=== PATIENT | female | born 1970 | race Caucasian/White ===

== ENCOUNTER 2017-04-28 13:54 | Observation (INO) | payer SELFPAY ==
[~2017-04-28] VITALS: Ht 165.1 cm; Wt 84.4 kg
[2017-04-28 14:21] LABS: BASOPHILS % (AUTO) 0 % (0-10); EOSINOPHILS # (AUTO) 0.1 10^3/uL (0.0-0.3); EOSINOPHILS % (AUTO) 1 % (0-10); HEMATOCRIT 42 % (35-52); HEMOGLOBIN 14.3 G/DL (11.5-16.0); LYMPHOCYTES # (AUTO) 1.2 X 10^3 (1.0-4.0); LYMPHOCYTES % (AUTO) 11 % (12-44); MEAN CORPUSCULAR HEMOGLOBIN 31 PG (25-34); MEAN CORPUSCULAR HGB CONC 34 G/DL (32-36); MEAN CORPUSCULAR VOLUME 90 FL (80-99); MEAN PLATELET VOLUME 9.4 FL (7.4-10.4); MONOCYTES % (AUTO) 9 % (0-12); NEUTROPHILS # (AUTO) 8.5 X 10^3 (1.8-7.8); NEUTROPHILS % (AUTO) 79 % (42-75); PLATELET COUNT 299 10^3/uL (130-400); RED BLOOD COUNT 4.66 10^6/uL (4.35-5.85); RED CELL DISTRIBUTION WIDTH 14.1 % (10.0-14.5); WHITE BLOOD COUNT 10.8 10^3/uL (4.3-11.0)
[2017-04-28 14:38] LABS: PROTHROMBIN TIME PATIENT 13.1 SEC (12.2-14.7)
--- NOTE | 2017-04-28 14:41 | Diagnostic Imaging Report ---
Indication: Dizziness and diaphoresis Comparison: None Findings: Single frontal view of the chest is obtained. Heart size is normal. The pulmonary vessels appear unremarkable. There is no pneumothorax, mediastinal widening or pleural fluid. Lungs are clear. Impression: Negative chest. Dictated by: Dictated on workstation # [id number]
[2017-04-28 14:43] LABS: ALANINE AMINOTRANSFERASE 46 U/L (0-55); ALKALINE PHOSPHATASE 72 U/L (40-136); BILIRUBIN,TOTAL 0.4 MG/DL (0.1-1.0); BUN/CREATININE RATIO 16; CALCIUM 8.8 MG/DL (8.5-10.1); CARBON DIOXIDE 21 MMOL/L (21-32); CHLORIDE 108 MMOL/L (98-107); CREATINE KINASE 39 U/L (29-168); GFR ESTIMATED > 60; GLUCOSE 101 MG/DL (70-105); POTASSIUM 3.5 MMOL/L (3.6-5.0); SODIUM 139 MMOL/L (135-145)
--- NOTE | 2017-04-28 14:55 | Diagnostic Imaging Report ---
EXAM: CT HEAD WO-R/O STROKE INDICATION: Syncope. Headache. Blurred vision. COMPARISON: None. FINDINGS: No intracranial hemorrhage, mass effect, hydrocephalus or extra-axial fluid collections. No CT evidence of acute infarction. Osseous structures are intact. There are air-fluid levels in the partially visualized right maxillary and ethmoid sinuses. Small left mastoid effusion. IMPRESSION: 1. No acute intracranial CT findings. 2. Air-fluid levels in the ethmoid and partially visualized right maxillary sinus. 3. Small left mastoid effusion is nonspecific. Findings discussed with Dr. Elizabeth Dooley at 2:52 PM on 04/28/2017. Dictated by: Dictated on workstation # [id number]
[2017-04-28 15:05] LABS: BILIRUBIN,URINE NEGATIVE (NEGATIVE); CLARITY,URINE CLEAR; COLOR,URINE YELLOW; GLUCOSE, URINE (UA) NEGATIVE (NEGATIVE); KETONES,URINE NEGATIVE (NEGATIVE); LEUKOCYTE ESTERASE ,URINE NEGATIVE (NEGATIVE); NITRITE,URINE NEGATIVE (NEGATIVE); PH,URINE 6.5 (5-9); PROTEIN,URINE NEGATIVE (NEGATIVE); UROBILINOGEN,URINE NORMAL (NORMAL)
[2017-04-28 15:22] LABS: CREATINE KINASE MB 0.5 NG/ML (<6.6); TSH (THYROID ANALYZER) 0.65 UIU/ML (0.35-4.94)
[2017-04-28] MEDS ORDERED: NS 100 ML (IVPB) BAG IV ONE (15:30)
[2017-04-28] MEDS ORDERED: IOHEXOL 350 MG/ML 150 ML (OMNIPAQUE 350) VIAL IV ONE (15:30)
[2017-04-28 15:33] LABS: BACTERIA,URINE FEW /HPF; SQUAMOUS EPITHELIAL CELL,UR 0-5 /HPF; WBC,URINE 0-2 /HPF
[2017-04-28] MEDS ORDERED: cefTRIAXone INJECTION 1,000 MG in NS (IVPB) 100 ML IV ONE (15:45)
--- NOTE | 2017-04-28 15:56 | Diagnostic Imaging Report ---
PROCEDURE: CT angiography of the chest with contrast. TECHNIQUE: Multiple contiguous axial images were obtained through the chest after uneventful bolus administration of intravenous contrast. Reconstructed CTA MIP acquisitions were also performed. INDICATION: Chest pain. Left arm pain. COMPARISON: Chest radiograph also performed today. FINDINGS: No pulmonary artery filling defects. No thoracic aortic aneurysm or dissection. Normal heart size. No pericardial effusion. Calcified mediastinal lymph nodes. Minimal linear atelectasis or scarring in the right lung base. The lungs are otherwise clear. No pleural effusion or pneumothorax. No endobronchial lesions. Hypoenhancing nodule in the left adrenal gland measures 1.3 x 2.5 cm. The visualized upper abdominal contents are otherwise negative. IMPRESSION: 1. No pulmonary emboli. No thoracic aortic aneurysm or dissection. 2. No acute CT findings in the chest. There are 3. Nonspecific well-circumscribed hypoenhancing mass in the left adrenal gland measuring up to 2.5 cm. Although this may represent a benign adenoma, is indeterminate on this exam. Comparison with prior outside examinations or a dedicated multiphase CT examination would be helpful for further characterization. Dictated by: Dictated on workstation # [id number]
--- NOTE | 2017-04-28 16:40 | ED General ---
General Chief Complaint: Dizziness/Syncope Stated Complaint: SYNCOPAL EPISODES,CHEST PAIN,SOB,SINUSITIS Nursing Triage Note: COUGH/FEVER/FLU LIKE S/S X 1 WEEK. PT WAS SEEN AT [facility] YESTERDAY FOR FLU LIKE S/ S BUT WAS NEGATIVE FOR FLU TEST. PT REPROTS SHE FELT DIAPHORETIC AND DIZZY WITH CP AND BACK PAIN WHILE IN THE BATHROOM AND FELT LIKE SHE WAS GOING TO PASS OUT. WHEN HER GOT TO HER HE SAID SHE WAS UNRESPONSIVE AND HER HANDS WERE CONTRACTED. PT REPORTS SHE DID NOT FALL. HER LOWERED HER TO THE GROUND AND SHE WAS ALERT UPON EMS ARRIVAL. Nursing Sepsis Screen: Possible Sepsis Risk Source of Information: Patient, EMS, Spouse History of Present Illness Date Seen by Provider: Apr 28, 2017 Time Seen by Provider: 14:02 Initial Comments PT ARRIVES VIA EMS FROM HOME PT STATES SHE SUDDENLY STARTED HAVING UPPER BACK AND CHEST PAIN AND WALKED TO THE BATHROOM AND PASSED OUT. OCCURRED JUST PRIOR TO ARRIVAL DOES NOT KNOW HOW LONG SHE WAS OUT, BUT THINKS WAS ONLY BRIEFLY NO INJURY PT STATES SHE HAS HAD NON-PRODUCTIVE COUGH AND FEVER THIS WEEK (DENIES COUGHING AT THE TIME OF THIS EPISODE) STATES SHE WAS SEEN AT [facility] YESTERDAY FOR THIS PROBLEM AND HER TEMP YESTERDAY WAS "104" --STATES FLU AND STREP SCREEN WERE NEGATIVE. NO RX GIVEN PT STATES SHE FELT REAL HOT AND DIZZY NO HISTORY OF SIMILAR SYMPTOMS Allergies and Home Medications Allergies Coded Allergies: Penicillins (Verified Allergy, Unknown, 04/28/17) Sulfa (Sulfonamide Antibiotics) (Verified Allergy, Unknown, 04/28/17) Home Medications No Active Prescriptions or Reported Meds Past Aerqqiz-Mxrbbq-Oaffal Hx Patient Social History Alcohol Use: Denies Use Recreational Drug Use: No Smoking Status: Never a Smoker Recent Foreign Travel: No Contact w/Someone Who Travel: No Recent Infectious Disease Expo: No Recent Hopitalizations: No Physical Abuse: No Sexual Abuse: No Mistreated: No Fear: No Seasonal Allergies Seasonal Allergies: No Surgeries History of Surgeries: Yes (R/L KNEE, L5-S1 FUSION, ) Surgeries: Hysterectomy Respiratory History of Respiratory Disorde: No Cardiovascular History of Cardiac Disorders: Yes Cardiac Disorders: Hypertension Neurological History of Neurological Disord: No Genitourinary History of Genitourinary Disor: No Gastrointestinal History of Gastrointestinal Di: No Musculoskeletal History of Musculoskeletal Dis: Yes Musculoskeletal Disorders: Degenerate Disk Disease, Chronic Back Pain Endocrine History of Endocrine Disorders: No HEENT History of HEENT Disorders: No Cancer History of Cancer: No Psychosocial History of Psychiatric Problem: No Suicide Risk Score: 0 Integumentary History of Skin or Integumenta: No Blood Transfusions History of Blood Disorders: No Physical Exam Vital Signs Vital Signs - First Documented 04/28/17 14:03 Temp 99.2 Pulse 79 Resp 24 B/P (MAP) 142/93 (109) Pulse Ox 96 Capillary Refill : Less Than 3 Seconds Focused Exam Evaluation Lactate Level Laboratory Tests 04/28/17 14:28: Lactic Acid Level 0.87 Lactic Acid Level Laboratory Tests Test 04/28/17 14:28 Lactic Acid Level 0.87 MMOL/L (0.50-2.00) Progress/Results/Core Measures Suspected Sepsis Recent Fever Within 48 Hours: Yes Infection Criteria Present: Suspected New Infection New/Unexplained Altered Menta: No Sepsis Screen: Possible Sepsis Risk Sepsis Diagnosis: SIRS Temperature:99.2 Pulse: 79 Respiratory Rate: 24 Laboratory Tests 04/28/17 13:57: White Blood Count 10.8 Blood Pressure 142 /93 Mean: 109 Laboratory Tests 04/28/17 14:28: Lactic Acid Level 0.87 Laboratory Tests 04/28/17 13:57: Creatinine 0.70, INR Comment 1.0, Platelet Count 299, Total Bilirubin 0.4 Results/Orders Lab Results Laboratory Tests Test 04/28/17 13:57 04/28/17 14:28 04/28/17 14:56 Range/Units White Blood Count 10.8 4.3-11.0 10^3/uL Red Blood Count 4.66 4.35-5.85 10^6/uL Hemoglobin 14.3 11.5-16.0 G/DL Hematocrit 42 35-52 % Mean Corpuscular Volume 90 80-99 FL Mean Corpuscular Hemoglobin 31 25-34 PG Mean Corpuscular Hemoglobin Concent 34 32-36 G/DL Red Cell Distribution Width 14.1 10.0-14.5 % Platelet Count 299 130-400 10^3/uL Mean Platelet Volume 9.4 7.4-10.4 FL Neutrophils (%) (Auto) 79 H 42-75 % Lymphocytes (%) (Auto) 11 L 12-44 % Monocytes (%) (Auto) 9 0-12 % Eosinophils (%) (Auto) 1 0-10 % Basophils (%) (Auto) 0 0-10 % Neutrophils # (Auto) 8.5 H 1.8-7.8 X 10^3 Lymphocytes # (Auto) 1.2 1.0-4.0 X 10^3 Monocytes # (Auto) 1.0 0.0-1.0 X 10^3 Eosinophils # (Auto) 0.1 0.0-0.3 10^3/uL Basophils # (Auto) 0.0 0.0-0.1 10^3/uL Prothrombin Time 13.1 12.2-14.7 SEC INR Comment 1.0 0.8-1.4 Activated Partial Thromboplast Time 20 L 24-35 SEC Sodium Level 139 135-145 MMOL/L Potassium Level 3.5 L 3.6-5.0 MMOL/L Chloride Level 108 H 98-107 MMOL/L Carbon Dioxide Level 21 21-32 MMOL/L Anion Gap 10 5-14 MMOL/L Blood Urea Nitrogen 11 7-18 MG/DL Creatinine 0.70 0.60-1.30 MG/DL Estimat Glomerular Filtration Rate > 60 BUN/Creatinine Ratio 16 Glucose Level 101 70-105 MG/DL Calcium Level 8.8 8.5-10.1 MG/DL Magnesium Level 2.0 1.8-2.4 MG/DL Total Bilirubin 0.4 0.1-1.0 MG/DL Aspartate Amino Transf (AST/SGOT) 33 5-34 U/L Alanine Aminotransferase (ALT/SGPT) 46 0-55 U/L Alkaline Phosphatase 72 40-136 U/L Total Creatine Kinase 39 29-168 U/L Creatine Kinase MB 0.5 <6.6 NG/ML Troponin I < 0.30 <0.30 NG/ML B-Type Natriuretic Peptide 11.9 <100.0 PG/ML Total Protein 7.0 6.4-8.2 GM/DL Albumin 4.0 3.2-4.5 GM/DL TSH Barber Testing 0.65 0.35-4.94 UIU/ML Lactic Acid Level 0.87 0.50-2.00 MMOL/L Urine Color YELLOW Urine Clarity CLEAR Urine pH 6.5 5-9 Urine Specific [place] 1.010 L 1.016-1.022 Urine Protein NEGATIVE NEGATIVE Urine Glucose (UA) NEGATIVE NEGATIVE Urine Ketones NEGATIVE NEGATIVE Urine Nitrite NEGATIVE NEGATIVE Urine Bilirubin NEGATIVE NEGATIVE Urine Urobilinogen NORMAL NORMAL MG/DL Urine Leukocyte Esterase NEGATIVE NEGATIVE Urine RBC (Auto) NEGATIVE NEGATIVE Urine RBC NONE /HPF Urine WBC 0-2 /HPF Urine Squamous Epithelial Cells 0-5 /HPF Urine Crystals NONE /LPF Urine Bacteria FEW H /HPF Urine Casts NONE /LPF Urine Mucus NEGATIVE /LPF Urine Culture Indicated YES Micro Results Microbiology 04/28/17 Influenza Types A,B Antigen (ROMI) - Final, Complete My Orders Orders - WANDY RAMÍREZ DO Saline Lock/Iv-Start (04/28/17 14:11) Ekg Tracing (04/28/17 14:11) O2 (04/28/17 14:11) Monitor-Rhythm Ecg Trace Only (04/28/17 14:11) Ct Head Wo-R/O Stroke (04/28/17 14:11) BNP (04/28/17 14:11) Cbc With Automated Diff (04/28/17 14:11) Comprehensive Metabolic Panel (04/28/17 14:11) Creatine Kinase (04/28/17 14:11) Creatine Kinase Mb (04/28/17 14:11) Lactic Acid Analyzer (04/28/17 14:11) Magnesium (04/28/17 14:11) Protime With Inr (04/28/17 14:11) Partial Thromboplastin Time (04/28/17 14:11) Thyroid Analyzer (04/28/17 14:11) Troponin I (04/28/17 14:11) Ua Culture If Indicated (04/28/17 14:11) Blood Culture (04/28/17 14:11) Influenza A And B Antigens (04/28/17 14:11) Chest 1 View, Ap/Pa Only (04/28/17 14:11) Ct Angio Chest W (04/28/17 15:16) Iohexol Injection (Omnipaque 350 Mg/Ml 1 (04/28/17 15:30) Ns (Ivpb) (Sodium Chloride 0.9% Ivpb Bag (04/28/17 15:30) Urine Culture (04/28/17 14:56) Ceftriaxone Injection (Rocephin Injectio (04/28/17 15:45) Medications Given in ED Current Medications Medications Dose Ordered Sig/Ericka Route Start Time Stop Time Status Last Admin Dose Admin Ceftriaxone Sodium 1000 mg/ Sodium Chloride 100 ml @ 200 mls/hr ONCE ONCE IV 04/28/17 15:45 04/28/17 16:14 DC 04/28/17 16:04 200 MLS/HR Iohexol 150 ml ONCE ONCE IV 04/28/17 15:30 04/28/17 15:31 DC 04/28/17 15:29 125 ML Sodium Chloride 100 ml ONCE ONCE IV 04/28/17 15:30 04/28/17 15:31 DC 04/28/17 15:29 100 ML Vital Signs/I&O Vital Sign - Last 12Hours 04/28/17 14:03 Temp 99.2 Pulse 79 Resp 24 B/P (MAP) 142/93 (109) Pulse Ox 96 Capillary Refill : Less Than 3 Seconds Blood Pressure Mean: 109 Departure Departure-Patient Inst. Referrals: [facility] (PCP/Family) Primary Care Physician Scripts No Active Prescriptions or Reported Meds WANDY RAMÍREZ DO Apr 28, 2017 16:40
[2017-04-28 17:30] VITALS: BP 130/86
[2017-04-28] MEDS ORDERED: 1/2 NS IV SOLUTION 1,000 ML IV ONE (17:39)
[2017-04-28 17:45] VITALS: BP 147/88
[2017-04-28] MEDS: 1/2 NS IV SOLUTION 1,000 ML IV SCH (17:45)
[2017-04-28] MEDS ORDERED: morphine INJ 4 MG/ML 1 ML (VIAL/SYRINGE) IV PRN (17:45)
[2017-04-28] MEDS ORDERED: NITROGLYCERIN 0.4 MG SL TABS BTL 25'S SL PRN (17:45)
[2017-04-28 18:00] VITALS: BP 143/88
[2017-04-28 18:15] VITALS: BP 139/84
[2017-04-28 18:30] VITALS: BP 127/82
[2017-04-28] MEDS: ACETAMINOPHEN 500 MG TAB (TYLENOL) PO PRN (18:37)
[2017-04-28 20:50] VITALS: BP 134/85
[2017-04-29] VITALS (8 sets, daily range): BP systolic 111–152; BP diastolic 65–93
[2017-04-29] MEDS: 1/2 NS IV SOLUTION 1,000 ML IV SCH ×3 (04:35→17:47)
[2017-04-29 05:58] LABS: BASOPHILS % (AUTO) 0 % (0-10); EOSINOPHILS # (AUTO) 0.2 10^3/uL (0.0-0.3); EOSINOPHILS % (AUTO) 3 % (0-10); HEMATOCRIT 42 % (35-52); HEMOGLOBIN 14.2 G/DL (11.5-16.0); LYMPHOCYTES # (AUTO) 1.5 X 10^3 (1.0-4.0); LYMPHOCYTES % (AUTO) 31 % (12-44); MEAN CORPUSCULAR HEMOGLOBIN 31 PG (25-34); MEAN CORPUSCULAR HGB CONC 34 G/DL (32-36); MEAN CORPUSCULAR VOLUME 92 FL (80-99); MEAN PLATELET VOLUME 9.7 FL (7.4-10.4); MONOCYTES % (AUTO) 20 % (0-12); NEUTROPHILS # (AUTO) 2.3 X 10^3 (1.8-7.8); NEUTROPHILS % (AUTO) 46 % (42-75); PLATELET COUNT 284 10^3/uL (130-400); RED BLOOD COUNT 4.58 10^6/uL (4.35-5.85); RED CELL DISTRIBUTION WIDTH 14.4 % (10.0-14.5)
[2017-04-29 06:31] LABS: ALANINE AMINOTRANSFERASE 42 U/L (0-55); ALBUMIN 3.8 GM/DL (3.2-4.5); ALKALINE PHOSPHATASE 71 U/L (40-136); BILIRUBIN,TOTAL 0.3 MG/DL (0.1-1.0); BUN/CREATININE RATIO 21; CALCIUM 8.8 MG/DL (8.5-10.1); CARBON DIOXIDE 22 MMOL/L (21-32); CHLORIDE 112 MMOL/L (98-107); CHOLESTEROL 193 MG/DL (< 200); CREATININE SERUM 0.68 MG/DL (0.60-1.30); GFR ESTIMATED > 60; GLUCOSE 139 MG/DL (70-105); HDL CHOLESTEROL 45 MG/DL (40-60); MAGNESIUM 2.2 MG/DL (1.8-2.4); POTASSIUM 3.6 MMOL/L (3.6-5.0); SODIUM 142 MMOL/L (135-145); TOTAL PROTEIN 6.5 GM/DL (6.4-8.2); TRIGLYCERIDES 174 MG/DL (<150); VLDL CHOLESTEROL 35 MG/DL (5-40)
[2017-04-29 06:43] LABS: EOSINOPHILS % (MANUAL) 4 %; LYMPHOCYTES % (MANUAL) 35 %; MONOCYTES % (MANUAL) 11 %; NEUTROPHILS % (MANUAL) 50 %; RBC MORPH NORMAL
[2017-04-29] MEDS ORDERED: INFLUENZA TRIvalent 2017-2018 0.5 ML/45 MCG SYR IM ONE (07:45)
[2017-04-29] MEDS: ASPIRIN E.C. 325 MG (ECOTRIN) TABLET PO SCH (09:27)
--- NOTE | 2017-04-29 11:29 | Consultation-Cardiology ---
HPI-Cardiology Cardiology Consultation: Date of Consultation 04/29/17 Time Seen by Provider: 10:55 Date of Admission Attending Physician Marlene Torres DO Admitting Physician [facility] [facility] Consulting Physician SHARIF BEATTY MD, MA, FACP, FACC, FSCAI, CCDS HPI: Chief Complaint: CC: Syncope HPI: 47 yo who had abdominal discomfort and some nausea yesterday and the urge to defecate. Passed out multiple times on the toilet, episodes preceded by the feeling of being hot and with some sweating. Witnessed by her . All episodes less than a min. Brought to the hosp. Another episode in the hosp while trying to sit up in the bed. Lasted only a few seconds. Tele showed NSR with rate around 55 bpm. No recurrence since. Some of these episodes associated with dull, upper L parasternal cp. No radiation of discomfort, mild to mod, never experienced before. No exertional shortness of breath or chest discomfort or leg swelling or palp Review of Systems-Cardiology Review of Systems Constitutional: No malaise, No tiredness, No weight loss, No weight gain Eyes: No vision change Ears/Nose/Throat: No ear discharge, No nasal drainage Respiratory: As described under HPI Cardiovascular: As described under HPI Gastrointestinal: As described under HPI Genitourinary: No hematuria Musculoskeletal: No back pain, No joint pain Skin: No rash, No ulcerations Psychiatric/Neurological: No seizure, No focal weakness, No syncope Hematologic: No bleeding abnormalities ORW-Aypsrv-Voxygd Hx Patient Social History Alcohol Use: Denies Use Recreational Drug Use: No Smoking Status: Former Smoker Recent Foreign Travel: No Recent Infectious Disease Expo: No Physical Abuse Screen: No Sexual Abuse: No Past Medical History PMH As described under Assessment. Family Medical History Family Medical History: A son of congenital heart disease at age 12 Allergies and Home Medications Allergies Coded Allergies: Penicillins (Verified Allergy, Unknown, 04/28/17) Sulfa (Sulfonamide Antibiotics) (Verified Allergy, Unknown, 04/28/17) Home Medications No Active Prescriptions or Reported Meds Patient Home Medication List Home Medication List Reviewed: Yes Physical Exam-Cardiology Physical Exam Vital Signs/I&O Vital Sign - Last 12Hours 04/29/17 04/29/17 04/29/17 04/29/17 00:40 01:00 03:51 07:00 Temp 97.0 96.3 Pulse 69 66 68 73 Resp 20 20 B/P (MAP) 149/83 (105) 124/72 (89) Pulse Ox 94 96 O2 Delivery Room Air Room Air 04/29/17 08:00 Temp 97.2 Pulse 65 Resp 18 B/P (MAP) 136/83 (100) Pulse Ox 98 O2 Delivery Room Air Intake and Output 04/29/17 00:00 Intake Total 800 ml Output Total 350 ml Balance 450 ml Capillary Refill : Less Than 3 Seconds Constitutional: AAO x 3, well-developed, well-nourished HEENT: PERRL, EOMI, hearing is well preserved Neck: carotid bruit, carotid pulses are 2 + bilaterally, with good upstrokes Respiratory: No accessory muscle use, lungs clear to percussion, lungs clear to auscultation Cardiovascular: regular rate-rhythm, S1 and S2, systolic murmur (faint MEREDITH at card base) Gastrointestinal: No tender, soft, No guarding, No rebound, audible bowel sounds Extremities: No clubbing, No cyanosis, No significant edema Neurologic/Psychiatric: oriented x 3, grossly intact, power is 5/5 both on sides Skin: No rash on exposed areas, No ulcerations on exposed areas Data Review Labs Laboratory Tests 04/28/17 13:57: White Blood Count 10.8, Red Blood Count 4.66, Hemoglobin 14.3, Hematocrit 42, Mean Corpuscular Volume 90, Mean Corpuscular Hemoglobin 31, Mean Corpuscular Hemoglobin Concent 34, Red Cell Distribution Width 14.1, Platelet Count 299, Mean Platelet Volume 9.4, Neutrophils (%) (Auto) 79H, Lymphocytes (%) (Auto) 11L , Monocytes (%) (Auto) 9, Eosinophils (%) (Auto) 1, Basophils (%) (Auto) 0, Neutrophils # (Auto) 8.5H, Lymphocytes # (Auto) 1.2, Monocytes # (Auto) 1.0, Eosinophils # (Auto) 0.1, Basophils # (Auto) 0.0, Prothrombin Time 13.1, INR Comment 1.0, Activated Partial Thromboplast Time 20L, Sodium Level 139, Potassium Level 3.5L, Chloride Level 108H, Carbon Dioxide Level 21, Anion Gap 10 , Blood Urea Nitrogen 11, Creatinine 0.70, Estimat Glomerular Filtration Rate > 60, BUN/Creatinine Ratio 16, Glucose Level 101, Calcium Level 8.8, Magnesium Level 2.0, Total Bilirubin 0.4, Aspartate Amino Transf (AST/SGOT) 33, Alanine Aminotransferase (ALT/SGPT) 46, Alkaline Phosphatase 72, Total Creatine Kinase 39, Creatine Kinase MB 0.5, Myoglobin 20.6, Troponin I < 0.30, B-Type Natriuretic Peptide 11.9, Total Protein 7.0, Albumin 4.0, TSH [place] Testing 0.65 04/28/17 14:28: Lactic Acid Level 0.87 04/28/17 14:56: Urine Color YELLOW, Urine Clarity CLEAR, Urine pH 6.5, Urine Specific [place] 1.010L, Urine Protein NEGATIVE, Urine Glucose (UA) NEGATIVE, Urine Ketones NEGATIVE, Urine Nitrite NEGATIVE, Urine Bilirubin NEGATIVE, Urine Urobilinogen NORMAL, Urine Leukocyte Esterase NEGATIVE, Urine RBC (Auto) NEGATIVE, Urine RBC NONE, Urine WBC 0-2, Urine Squamous Epithelial Cells 0-5, Urine Crystals NONE, Urine Bacteria FEWH, Urine Casts NONE, Urine Mucus NEGATIVE, Urine Culture Indicated YES 04/29/17 05:20: White Blood Count 5.0, Red Blood Count 4.58, Hemoglobin 14.2, Hematocrit 42, Mean Corpuscular Volume 92, Mean Corpuscular Hemoglobin 31, Mean Corpuscular Hemoglobin Concent 34, Red Cell Distribution Width 14.4, Platelet Count 284, Mean Platelet Volume 9.7, Neutrophils (%) (Auto) 46, Lymphocytes (%) (Auto) 31, Monocytes (%) (Auto) 20H, Eosinophils (%) (Auto) 3, Basophils (%) (Auto) 0, Neutrophils # (Auto) 2.3, Lymphocytes # (Auto) 1.5, Monocytes # (Auto) 1.0, Eosinophils # (Auto) 0.2, Basophils # (Auto) 0.0, Sodium Level 142, Potassium Level 3.6, Chloride Level 112H, Carbon Dioxide Level 22, Anion Gap 8, Blood Urea Nitrogen 14, Creatinine 0.68, Estimat Glomerular Filtration Rate > 60, BUN/ Creatinine Ratio 21, Glucose Level 139H, Calcium Level 8.8, Magnesium Level 2.2 , Total Bilirubin 0.3, Aspartate Amino Transf (AST/SGOT) 27, Alanine Aminotransferase (ALT/SGPT) 42, Alkaline Phosphatase 71, Total Protein 6.5, Albumin 3.8, Neutrophils % (Manual) 50, Lymphocytes % (Manual) 35, Monocytes % ( Manual) 11, Eosinophils % (Manual) 4, Band Neutrophils , Blood Morphology Comment NORMAL, Triglycerides Level 174H, Cholesterol Level 193, LDL Cholesterol Direct 131H, VLDL Cholesterol 35, HDL Cholesterol 45 Microbiology 04/28/17 Influenza Types A,B Antigen (ROMI) - Final, Complete Laboratory Tests 04/28/17 13:57 04/29/17 05:20 A/P-Cardiology Assessment/Admission Diagnosis Syncope of unknown etiology: vasovagal syncope is suspected but other etiologies need considered Probable ac gastroenteritis Nonspecific chest discomfort Discussion and Recomendations * Keep in hosp * Continue iv fluids * Record orthostatic bp * Echo to eval for structural heart disease * MPI to eval for cor ischemia * Monitor labs * I discussed her case with Dr Saleh * I discussed her case with her and her Clinical Quality Measures DVT/VTE Risk/Contraindication: Risk Factor Score Per Nursin RFS Level Per Nursing on Admit: 2=Moderate SHARIF BEATTY MD FACP FAC CCDS Apr 29, 2017 11:29
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
[2017-04-29] MEDS ORDERED: ONDANSETRON 4 MG/2 ML (SDV) Z0FRAN IVP PRN (11:45)
[2017-04-29] MEDS ORDERED: CALCIUM CARBONATE 500 MG (TUMS) TAB.CHEW PO PRN (11:45)
[2017-04-29] MEDS: IBUPROFEN 600 MG (MOTRIN) TAB PO PRN (12:36)
[2017-04-29] MEDS: ENOXAPARIN 40 MG/0.4 ML (LOVENOX) SYR SC SCH (12:36)
[2017-04-29] MEDS ORDERED: cefTRIAXone 1 GM/NS 100 ML IVPB IV SCH ×2 (16:00)
[2017-04-29] MEDS: ACETAMINOPHEN 500 MG TAB (TYLENOL) PO PRN (17:47)
[2017-04-30] VITALS (8 sets, daily range): BP systolic 118–165; BP diastolic 62–94
[2017-04-30] MEDS: 1/2 NS IV SOLUTION 1,000 ML IV SCH ×2 (01:42→11:22)
[2017-04-30 06:04] LABS: BASOPHILS % (AUTO) 0 % (0-10); EOSINOPHILS # (AUTO) 0.2 10^3/uL (0.0-0.3); EOSINOPHILS % (AUTO) 4 % (0-10); HEMATOCRIT 42 % (35-52); HEMOGLOBIN 13.9 G/DL (11.5-16.0); LYMPHOCYTES # (AUTO) 1.8 X 10^3 (1.0-4.0); LYMPHOCYTES % (AUTO) 32 % (12-44); MEAN CORPUSCULAR HEMOGLOBIN 31 PG (25-34); MEAN CORPUSCULAR HGB CONC 34 G/DL (32-36); MEAN CORPUSCULAR VOLUME 92 FL (80-99); MEAN PLATELET VOLUME 9.3 FL (7.4-10.4); MONOCYTES # (AUTO) 0.6 X 10^3 (0.0-1.0); MONOCYTES % (AUTO) 11 % (0-12); NEUTROPHILS % (AUTO) 53 % (42-75); PLATELET COUNT 289 10^3/uL (130-400); RED CELL DISTRIBUTION WIDTH 14.1 % (10.0-14.5); WHITE BLOOD COUNT 5.6 10^3/uL (4.3-11.0)
[2017-04-30 06:18] LABS: BUN/CREATININE RATIO 20; CALCIUM 8.4 MG/DL (8.5-10.1); CARBON DIOXIDE 21 MMOL/L (21-32); CHLORIDE 112 MMOL/L (98-107); CREATININE SERUM 0.61 MG/DL (0.60-1.30); GFR ESTIMATED > 60; GLUCOSE 102 MG/DL (70-105); MAGNESIUM 2.1 MG/DL (1.8-2.4); POTASSIUM 3.8 MMOL/L (3.6-5.0); SODIUM 141 MMOL/L (135-145)
[2017-04-30] MEDS ORDERED: REGADENOSON 0.4 MG/5 ML SYR (LEXISCAN) IV ONE ×2 (08:34→09:15)
--- NOTE | 2017-04-30 09:53 | Progress Note-Cardiology ---
Cardiology SOAP Progress Note Subjective: No further syncope or near-syncopal episodes. No c/o CP, dyspnea, palpitations. No c/o LE edema. Objective: I&O/Vital Signs Vital Sign - Last 12Hours 04/30/17 04/30/17 04/30/17 04/30/17 04:43 04:44 07:00 08:53 Temp 97.7 Pulse 67 72 55 62 65 67 Resp 18 B/P (MAP) 118/65 (82) 141/75 (97) 156/83 (107) 118/65 (82) Pulse Ox 97 98 O2 Delivery Room Air 04/30/17 04/30/17 04/30/17 04/30/17 09:00 09:08 09:09 10:15 Pulse 116 94 B/P (MAP) 127/94 (105) 157/73 (101) 165/81 (109) Pulse Ox 99 99 O2 Delivery Room Air 04/30/17 04/30/17 04/30/17 10:34 12:00 13:00 Temp 97.9 97.7 Pulse 54 56 74 B/P (MAP) 153/74 (100) 145/62 (89) Pulse Ox 96 98 Intake and Output 04/30/17 00:00 Intake Total 2940 ml Output Total 2025 ml Balance 915 ml Weight (Pounds): 186 Weight (Ounces): 0.0 Weight (Calculated Kilograms): [id number] Constitutional: AAO x 3, well-developed, well-nourished Respiratory: No accessory muscle use, lungs clear to percussion, lungs clear to auscultation Cardiovascular: regular rate-rhythm, S1 and S2, systolic murmur (faint MEREDITH at card base) Gastrointestional: No tender, soft, No guarding, No rebound, audible bowel sounds Extremities: No clubbing, No cyanosis, No significant edema Neurologic/Psychiatric: oriented x 3, grossly intact, power is 5/5 both on sides Skin: No rash on exposed areas, No ulcerations on exposed areas Results/Procedures: Labs Laboratory Tests 04/30/17 05:55: White Blood Count 5.6, Red Blood Count 4.50, Hemoglobin 13.9, Hematocrit 42, Mean Corpuscular Volume 92, Mean Corpuscular Hemoglobin 31, Mean Corpuscular Hemoglobin Concent 34, Red Cell Distribution Width 14.1, Platelet Count 289, Mean Platelet Volume 9.3, Neutrophils (%) (Auto) 53, Lymphocytes (%) (Auto) 32, Monocytes (%) (Auto) 11, Eosinophils (%) (Auto) 4, Basophils (%) (Auto) 0, Neutrophils # (Auto) 3.0, Lymphocytes # (Auto) 1.8, Monocytes # (Auto) 0.6, Eosinophils # (Auto) 0.2, Basophils # (Auto) 0.0, Sodium Level 141, Potassium Level 3.8, Chloride Level 112H, Carbon Dioxide Level 21, Anion Gap 8, Blood Urea Nitrogen 12, Creatinine 0.61, Estimat Glomerular Filtration Rate > 60, BUN/ Creatinine Ratio 20, Glucose Level 102, Calcium Level 8.4L, Magnesium Level 2.1 Microbiology 04/28/17 Blood Culture - Preliminary, Resulted Staph, Coag Neg (FRONT LINE LEADER) See Comments 04/28/17 Influenza Types A,B Antigen (ROMI) - Final, Complete 04/28/17 Urine Culture - Final, Complete A/P: Assessment: Syncope of unknown etiology: vasovagal syncope is suspected but other etiologies need considered No further syncope since 04/29/11 Echo of 04/30/17: LVEF 60-65%, WNL MPI of 04/30/17: no ischemia or infarction Probable ac gastroenteritis Nonspecific chest discomfort. No evidence of ACS Plan: * Record orthostatic bp - reviewed, no evidence of orthostatic hypotension * Echo to eval for structural heart disease - pending * MPI to eval for cor ischemia - pending * Monitor labs * Dr. Samuel discussed her case with her and her Physician Assessment Physician Assessment Feels well and wishes to go home. No cp or shortness of breath or palp or syncope Lungs: clear Cor: reg Ext: no c/c/e A&R * As documented in our note above that I updated at the time of this writing and as documented below * We have advised against driving or operating machinery or indulging in any activity where passing out might cause injury to self or others * We have educated her in the treatment and prevention of vasovagal syncope * Close outpat f/u is advised for now * I answered her and her family's questions [facility] Apr 30, 2017 09:53 SHARIF SAMUEL MD [facility] Apr 30, 2017 15:31
[2017-04-30] MEDS: ASPIRIN E.C. 325 MG (ECOTRIN) TABLET PO SCH (11:21)
[2017-04-30] MEDS: ENOXAPARIN 40 MG/0.4 ML (LOVENOX) SYR SC SCH (11:21)
[2017-04-30] MEDS: IBUPROFEN 600 MG (MOTRIN) TAB PO PRN (11:24)
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
[2017-04-30] MEDS ORDERED: ASPI-586 PO (15:34)
--- NOTE | 2017-04-30 15:37 | Discharge Instructions ---
Discharge Inst-[facility] Discharge Medications New, Converted or Re-Newed RX: Other (OTC 81 mg Aspirin) New Medications: Aspirin (Aspir 81) 81 Mg Tablet. 81 MG PO DAILY, #30 TAB Patient Instructions Goal/Follow Up Appt: You have a followup appt on May 11 @ 2PM with Jose Angel You have a follow up with Cardiology Dr Samuel in 2 weeks Patient Instructions: - Notify doctor of any similar episodes that occur Return to The Hospital For: - Chest pain - Shortness of breath Activity & Diet Discharge Diet: Cardiac Diet Activity as Tolerated: Yes Copy Copies To 1: [facility] HOLLY R MD Apr 30, 2017 3:37 pm
--- NOTE | 2017-04-30 18:43 | STRESS TEST ---
DATE OF SERVICE: 04/30/2017 RESTING AND POST REGADENOSON TECHNETIUM-99M TETROFOSMIN SPECT CT IMAGING ORDERING PHYSICIAN: Dr. Samuel. PRIMARY CARE PHYSICIAN: Dr. Torres. OTHER PHYSICIAN: [facility]. CLINICAL DIAGNOSES: 1. Syncope. 2. Chest discomfort. Baseline images were carried out after injection of 9.87 mCi of pharmacy intake technician-99m Tetrofosmin. This was followed by 0.4 mg of regadenoson and 31.3 mCi of pharmacy intake technician-99m Tetrofosmin for stress imaging. The patient noted mild shortness of breath and a feeling of being hot following regadenoson infusion, which resolved in a few minutes. Overall, she tolerated the procedure well. Review of images at rest and following stress does not indicate any significant perfusion defects consistent with significant myocardial ischemia or infarction. Gated images show normal global left ventricular systolic function. Normal regional wall motion. Left ventricular ejection fraction is calculated to be 64%. Left ventricular end diastolic volume is 63 mL. TID is absent (1.04). CONCLUSIONS: 1. No evidence of significant myocardial ischemia or infarction on this study. 2. Normal regional wall motion. 3. Normal global left ventricular systolic function with a calculated ejection fraction of 64%. 4. Normal left ventricular cavity size. Job ID: [id number] DocumentID: [id number] Dictated Date: 04/30/2017 13:09:44 Deputy Director Of Nursing Date: 04/30/2017 18:42:37 Dictated By: SHARIF SAMUEL MD, MA, FACP, FACC,
== END 2017-04-30 15:34 | disposition home or self-care (01) ==
LOC: ER 13:55 → 4TH 16:00 → UNDOADMOB 16:00 → 4TH 17:25 → UNDODISOB 04-30 16:20
PROVIDERS: ADMIT Family Medicine; ATTEND Family Medicine
DX: R55 Syncope and collapse (principal); R07.89 Other chest pain; R19.7 Diarrhea, unspecified; E27.9 Disorder of adrenal gland, unspecified; M51.26 Other intervertebral disc displacement, lumbar region; Z87.891 Personal history of nicotine dependence
CPT/HCPCS: 36415; 70450; 71045; 71275; 78452; 80048; 80053; 80061; 81000; 82550; 82553; 83605; 83735; 83874; 83880; 84443; 84484; 85007; 85025; 85027; 85610; 85730; 87040; 87088; 87804; 93005; 93017; 93041; 93306; 96365

== ENCOUNTER → 2017-05-22 | Outpatient (CLI) | payer OTHER ==
[~2017-05-22] VITALS: Ht 165.1 cm; Wt 83.9 kg
[2017-05-22] VITALS (28 sets, daily range): BP systolic 116–134; BP diastolic 64–94
[~2017-05-22] MED LIST: ASPI-586 PO; ATROPINE INJECTION 1 MG/10 ML SYR (ABBOTT) ONE; NS IV 1000 ML 1,000 ML IV SCH; NS IV 1000 ML 1,000 ML ONE; RECEIVED CONTRAST (Hold Metformin) IV SCH
--- NOTE | 2017-05-23 00:35 | OPERATIVE REPORT ---
DATE OF SERVICE: 05/22/2017 TILT TABLE TEST CLINICAL DIAGNOSIS: Syncope. The patient was laid flat on the table. Blood pressure was obtained. She was hooked up to a quality assurance monitor final. The table was tilted to 70 degrees with the patient's head up. Blood pressure was taken every minute. Heart rhythm was monitored continuously. The position was maintained for 45 minutes. There was no significant change in blood pressure or heart rate. She did not experience symptoms. CONCLUSION: Tilt table study negative for neurocardiogenic syncope. Job ID: [id number] DocumentID: [id number] Dictated Date: 05/22/2017 17:38:44 Microcomputer Support Specialist Date: 05/23/2017 00:34:50 Dictated By: SHARIF BEATTY MD, MA, FACP, FACC,
== END ==
LOC: CARD 07:08
PROVIDERS: ATTEND Nurse Practitioner Family
DX: R53.1 Weakness (principal); R53.83 Other fatigue; R42 Dizziness and giddiness; R55 Syncope and collapse; Z88.0 Allergy status to penicillin; Z88.2 Allergy status to sulfonamides
CPT/HCPCS: 93660

== ENCOUNTER 2017-06-26 10:53 | Day surgery (SDC) | payer OTHER ==
[~2017-06-26] VITALS: Ht 165.1 cm; Wt 83.9 kg
[~2017-06-26 10:53] MED LIST changes: -ATROPINE INJECTION 1 MG/10 ML SYR (ABBOTT) ONE; -NS IV 1000 ML 1,000 ML IV SCH; -NS IV 1000 ML 1,000 ML ONE; -RECEIVED CONTRAST (Hold Metformin) IV SCH
[2017-06-26] MEDS ORDERED: LIDOCAINE 1% INJ 20 ML 20 ML VIAL ONE ×2 (10:59→11:52)
[2017-06-26 11:09] VITALS: BP 133/99
[2017-06-26 12:23] VITALS: BP 133/78
--- NOTE | 2017-06-26 12:27 | Cardiac Procedure Note-CS/ASA ---
Pre-Procedure Note Pre-Op Procedure Note H&P Reviewed The H&P was reviewed, patient examined and no changes noted. Date H&P Reviewed: June 26, 2017 Time H&P Reviewed: 12:00 Conscious Sedation Pre-Proced Time Reviewed: 12:00 ASA Class: 3 Airway Mallampati Classification: (grayling appropriate class) I. II. III, IV Lungs Heart ASA score ASA 1: a normal healthy patient ASA 2: a patient with a mild systemic disease (mid diabetes, controlled hypertension, obesity ASA 3: a patient with a severe systemic disease that limits activity (angina , COPD, prior Myocardial infarction) ASA 4: a patient with an incapacitating disease that is a constant threat to life (CHF, renal failure) ASA 5: a moribund patient not expected to survive 24 hrs. (ruptured aneurysm) ASA 6: a declared brain patient whose organs are being harvested. For emergent operations, add the letter E after the classification Grade 2 Sedation Plan: Analgesia, Amnesia, Plan communicated to team members, Discussed options with patient/fam, Discussed risks with patient/fam Note The patient is an appropriate candidate to undergo the planned procedure, sedation, and anesthesia. The patient immediately re-assessed prior to indication. SHARIF BEATTY MD FACP FAC CCDS June 26, 2017 12:27
--- NOTE | 2017-06-26 22:59 | OPERATIVE REPORT ---
DATE OF SERVICE: 06/26/2017 PREOPERATIVE DIAGNOSIS: Syncope. POSTOPERATIVE DIAGNOSIS: Syncope. PROCEDURE: Implantable loop recorder implantation. DESCRIPTION OF PROCEDURE: The patient is a 47-year-old lady, who suffers from episode of syncope and no specific cause has been identified on cardiac workup. Implantable loop recorder implantation was carried out today to evaluate for any arrhythmia as a cause of her syncope. Informed consent was obtained. [facility] The left prepectoral area was prepared and draped in the usual sterile fashion. Lidocaine 1% for local anesthesia. We used the tools provided with the [employer] Reveal LINQ device to make a small incision just to the left of the parasternal border in the fourth intercostal space and a subcutaneous pocket was made with the tools provided and the loop recorder was placed in the pocket and the pocket was closed with Dermabond. She tolerated the procedure well. The serial number of the device is [id number]. Job ID: [id number] DocumentID: [id number] Dictated Date: 06/26/2017 12:03:52 Sewer Date: 06/26/2017 22:58:52 Dictated By: SHARIF BEATTY MD, MA, FACP, FACC,
== END 2017-06-26 12:30 | disposition home or self-care (01) ==
LOC: CATH 10:53
PROVIDERS: ATTEND Internal Medicine Cardiovascular Disease
DX: R55 Syncope and collapse (principal)
CPT/HCPCS: 33282

== ENCOUNTER 2017-11-06 17:12 | Emergency (ER) | payer SELFPAY ==
[~2017-11-06] VITALS: Ht 165.1 cm; Wt 77.1 kg
[~2017-11-06 17:12] MED LIST changes: +FLEXARIL; +HYDR25CA PO; +HYDROCODONE; +TRAZDONE
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
--- OUTSIDE RECORDS SUMMARY | 2017-11-06 17:17 | XMS REPORT ---
Author Author AKILAH HERNANDEZ Organization [facility] Address [address] [place] [address] Care Team Providers Care Prize Jacker Name Role Phone DAVIDRADHAAKILAH Unavailable PROBLEMS Type Condition ICD9-CM Code XQL89-VI Code Onset Dates Condition Status SNOMED Code Problem Chronic pain due to trauma G89.21 Active 566928107 Problem Major depressive disorder, single episode, unspecified F32.9 Active 07937821 Problem Anxiety disorder, unspecified F41.9 Active 568694739 Problem Other chronic pain G89.29 Active 37139131 Problem Elevated lipids E78.5 Active 527773294 Problem RAQUEL (generalized anxiety disorder) F41.1 Active 17382501 Problem PTSD (post-traumatic stress disorder) F43.10 Active 38078973 Problem Severe episode of recurrent major depressive disorder, without 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 Active 33420600 Problem Mixed obsessional thoughts and acts F42.2 Active 56147199 ALLERGIES No Information ENCOUNTERS Encounter Location Date Diagnosis [facility] [id number] [place] [address] 21113- 1672 Oct, [facility] [id number] [place] [address] 87354- 6707 Sep, Chronic pain due to trauma G89.21 ; Other chronic pain G89.29 and Pain in left hand M79.642 [facility] [address] [place] [address] 86917 -2907 Sep, Shortness of breath R06.02 and Syncope, unspecified syncope type R55 [facility] [id number] [place] [address] 09883- 8623 Sep, PTSD (post-traumatic stress disorder) F43.10 ; Severe episode of recurrent major depressive disorder, without 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 ; Mixed obsessional thoughts and acts F42.2 and RAQUEL (generalized anxiety disorder) F41.1 [place] [address] [address] Aug, Chronic pain due to trauma G89.21 [place] [id number] [place] [address] 67340- 3346 Aug, PTSD (post-traumatic stress disorder) F43.10 ; Severe episode of recurrent major depressive disorder, without 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 ; Mixed obsessional thoughts and acts F42.2 and RAQUEL (generalized anxiety disorder) F41.1 [place] [address] [place] [address] 54683- 9276 Aug, PTSD (post-traumatic stress disorder) F43.10 and Major depressive disorder, single episode, unspecified F32.9 [place] [id number] [place] [address] 09006- 5755 Jul, PTSD (post-traumatic stress disorder) F43.10 and Major depressive disorder, single episode, unspecified F32.9 [place] [id number] [place] [address] 15028- 5994 Jul, Chronic pain due to trauma G89.21 [place] [id number] [place] [address] 66416- 0608 Jul, PTSD (post-traumatic stress disorder) F43.10 ; Severe episode of recurrent major depressive disorder, without 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 ; RAQUEL (generalized anxiety disorder) F41.1 and Mixed obsessional thoughts and acts F42.2 [place] [address] [place] [address] 24024- 6918 Jul, PTSD (post-traumatic stress disorder) F43.10 and Major depressive disorder, single episode, unspecified F32.9 [place] [id number] [place] [address] 91587- 0556 June, Chronic pain due to trauma G89.21 [place] [id number] [place] [address] 68613- 8881 June, PTSD (post-traumatic stress disorder) F43.10 ; Severe episode of recurrent major depressive disorder, without 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 ; Mixed obsessional thoughts and acts F42.2 and RAQUEL (generalized anxiety disorder) F41.1 [place] [address] [address] [address] 1432 May, Chronic pain due to trauma G89.21 [place] [id number] [place] [address] 157106- 4911 May, PTSD (post-traumatic stress disorder) F43.10 [place] [id number] [place] [address] 57357- 1805 May, Chronic pain due to trauma G89.21 [place] [id number] [place] [address] 45901- 1351 May, PTSD (post-traumatic stress disorder) F43.10 ; Severe episode of recurrent major depressive disorder, without 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 ; Mixed obsessional thoughts and acts F42.2 and RAQUEL (generalized anxiety disorder) F41.1 [place] [id number] [place] [address] 56180- 5039 Apr, Elevated lipids E78.5 [place] [id number] [place] [address] 71315- 4260 Apr, PTSD (post-traumatic stress disorder) F43.10 and Major depressive disorder, single episode, unspecified F32.9 [place] [id number] [place] [address] 93122- 4190 Apr, Encounter to establish care Z76.89 [place] [id number] [place] [address] 27013- 5522 Apr, Chronic pain due to trauma G89.21 [place] [id number] [place] [address] 19384- 6487 Apr, Encounter to establish care Z76.89 ; Chronic pain due to trauma G89.21 ; Major depressive disorder, single episode, unspecified F32.9 ; Anxiety disorder, unspecified F41.9 ; PTSD (post-traumatic stress disorder) F43.10 and Syncope, unspecified syncope type R55 [facility] [address] [facility] [id number] [place] [address] Apr, Fever, unspecified fever cause R50.9 and Viral upper respiratory tract infection J06.9 [facility] [address] [facility] [id number] [place] [address] June, IMMUNIZATIONS No Known Immunizations SOCIAL HISTORY Never Assessed REASON FOR VISIT Follow-up Anxiety/PTSD PLAN OF CARE Activity Details Follow Up 2 Weeks Reason: Follow-up VITAL SIGNS MEDICATIONS Unknown Medications RESULTS No Results PROCEDURES Procedure Date Ordered Result Body Site Psychotherapy, patient &/family, 45 minutes, established patient August 28, 2017 INSTRUCTIONS MEDICATIONS ADMINISTERED No Known Medications MEDICAL [...]
--- OUTSIDE RECORDS SUMMARY | 2017-11-06 17:17 | XMS REPORT ---
Author Author FRANCISCO J DUNLAP Organization [facility] Address [address] [place] [address] Care Team Providers Care New Media Strategist Name Role Phone YASMINEFRANCISCO J LAMBERT Unavailable PROBLEMS Type Condition ICD9-CM Code VCS16-LR Code Onset Dates Condition Status SNOMED Code Problem Chronic pain due to trauma G89.21 Active 915780370 Problem Major depressive disorder, single episode, unspecified F32.9 Active 75787109 Problem Anxiety disorder, unspecified F41.9 Active 813440886 Problem Other chronic pain G89.29 Active 88258911 Problem Elevated lipids E78.5 Active 778512283 Problem RAQUEL (generalized anxiety disorder) F41.1 Active 17130512 Problem PTSD (post-traumatic stress disorder) F43.10 Active 60765623 Problem Severe episode of recurrent major depressive disorder, without 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 Active 29973339 Problem Mixed obsessional thoughts and acts F42.2 Active 74734758 ALLERGIES No Information ENCOUNTERS Encounter Location Date Diagnosis [facility] [address] [place] [address] 22084- 6396 Oct, [facility] [id number] [place] [address] 15702- 4464 Sep, Chronic pain due to trauma G89.21 ; Other chronic pain G89.29 and Pain in left hand M79.642 [facility] [address] [place] [address] 71953 -0810 Sep, Shortness of breath R06.02 and Syncope, unspecified syncope type R55 [facility] [id number] [place] [address] 32885- 7735 Sep, PTSD (post-traumatic stress disorder) F43.10 ; Severe episode of recurrent major depressive disorder, without 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 ; Mixed obsessional thoughts and acts F42.2 and RAQUEL (generalized anxiety disorder) F41.1 [place], [place] [address] Aug, Chronic pain due to trauma G89.21 [place] [id number] [place] [address] 15198- 9899 Aug, PTSD (post-traumatic stress disorder) F43.10 ; Severe episode of recurrent major depressive disorder, without 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 ; Mixed obsessional thoughts and acts F42.2 and RAQUEL (generalized anxiety disorder) F41.1 [place] [id number] [place] [address] 01995- 0515 Aug, PTSD (post-traumatic stress disorder) F43.10 and Major depressive disorder, single episode, unspecified F32.9 [place] [id number] [place] [address] 46011- 9026 Jul, PTSD (post-traumatic stress disorder) F43.10 and Major depressive disorder, single episode, unspecified F32.9 [place] [id number] [place] [address] 27126- 5760 Jul, Chronic pain due to trauma G89.21 [place] [id number] [place] [address] 87908- 0951 Jul, PTSD (post-traumatic stress disorder) F43.10 ; Severe episode of recurrent major depressive disorder, without 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 ; RAQUEL (generalized anxiety disorder) F41.1 and Mixed obsessional thoughts and acts F42.2 [place] [address] [place] [address] 62249- 4315 Jul, PTSD (post-traumatic stress disorder) F43.10 and Major depressive disorder, single episode, unspecified F32.9 [place] [address] [place] [address] 80504- 0435 June, Chronic pain due to trauma G89.21 [place] [id number] [place] [address] 34521- 7105 June, PTSD (post-traumatic stress disorder) F43.10 ; Severe episode of recurrent major depressive disorder, without 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 ; Mixed obsessional thoughts and acts F42.2 and RAQUEL (generalized anxiety disorder) F41.1 [place] [address] [place] [address] 91824- 6113 May, Chronic pain due to trauma G89.21 [place] [id number] [place] [address] 836492- 4155 May, PTSD (post-traumatic stress disorder) F43.10 [place] [id number] [place] [address] 09059- 5340 May, Chronic pain due to trauma G89.21 [place] [id number] [place] [address] 51767- 4492 May, PTSD (post-traumatic stress disorder) F43.10 ; Severe episode of recurrent major depressive disorder, without 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 ; Mixed obsessional thoughts and acts F42.2 and RAQUEL (generalized anxiety disorder) F41.1 [place] [id number] [place] [address] 21525- 3889 Apr, Elevated lipids E78.5 [place] [id number] [place] [address] 01819- 9451 Apr, PTSD (post-traumatic stress disorder) F43.10 and Major depressive disorder, single episode, unspecified F32.9 [place] [address] [place] [address] 79962- 3228 Apr, Encounter to establish care Z76.89 [place] [id number] [place] [address] 53440- 6475 Apr, Chronic pain due to trauma G89.21 [place] [id number] [place] [address] 63114- 0148 Apr, Encounter to establish care Z76.89 ; Chronic pain due to trauma G89.21 ; Major depressive disorder, single episode, unspecified F32.9 ; Anxiety disorder, unspecified F41.9 ; PTSD (post-traumatic stress disorder) F43.10 and Syncope, unspecified syncope type R55 [facility] [address] [facility] [id number] [place] [address] Apr, Fever, unspecified fever cause R50.9 and Viral upper respiratory tract infection J06.9 [facility] [address] [facility] [id number] [address] June, IMMUNIZATIONS No Known Immunizations SOCIAL HISTORY Never Assessed REASON FOR VISIT f/richard Ewing RN PLAN OF CARE Activity Details Follow Up 6 Weeks, prn Reason: VITAL SIGNS Height 65 in 2017-08-28 Weight 178.2 lbs 2017-08-28 Heart Rate 72 bpm 2017-08-28 Respiratory Rate 20 2017-08-28 BMI 29.65 kg/m2 2017-08-28 Blood pressure systolic 122 mmHg 2017-08-28 Blood pressure diastolic 78 mmHg 2017-08-28 MEDICATIONS Medication Instructions Dosage Frequency Start Date End Date Duration Status Trazodone HCl 100 MG Orally Once a day 1-2 tab at night for sleep as needed 24h May, Active Zoloft 50 MG Orally Once a day 0.5 tablet nightly for 2 weeks then full tab nightly 24h Aug, 30 day(s) Active Zyrtec Allergy 10 MG Orally Once a day 1 tablet 24h Active Clonazepam 1 MG Orally Once a day as needed for anxiety 0.25-0.5 tabs Aug, 7 days Active Motrin IB 200 MG Orally Three times a day 1 tablet with food or milk as needed 8h Active Cyclobenzaprine HCl 10 mg Orally twice a day 1 tablet as needed 12h Apr 30 days Active Hydrocodone-Acetaminophen 5-325 MG Orally every 6 hours as needed for pain 1- 2 tablets as needed Jul, 28 days Active Tylenol 325 MG Orally every 4 hrs 1 tablet as needed 4h Not-Taking Aspirin 81 81 MG Orally Once a day 1 tablet 24h Active RESULTS No Results PROCEDURES No Known [...]
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
--- OUTSIDE RECORDS SUMMARY | 2017-11-06 17:17 | XMS REPORT ---
Author Author KANG WASHINGTON Organization [facility] Address [address] [place] [address] Care Team Providers Care International Affairs Vice President Name Role Phone WASHINGTONKANG Unavailable PROBLEMS Type Condition ICD9-CM Code [id number] Code Onset Dates Condition Status SNOMED Code Problem Chronic pain due to trauma G89.21 Active 272465710 Problem Major depressive disorder, single episode, unspecified F32.9 Active 32460607 Problem Anxiety disorder, unspecified F41.9 Active 667229564 Problem Other chronic pain G89.29 Active 36987999 Problem Elevated lipids E78.5 Active 174258428 Problem RAQUEL (generalized anxiety disorder) F41.1 Active 43514238 Problem PTSD (post-traumatic stress disorder) F43.10 Active 41727216 Problem Severe episode of recurrent major depressive disorder, without 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 Active 70586746 Problem Mixed obsessional thoughts and acts F42.2 Active 67799821 ALLERGIES No Information ENCOUNTERS Encounter Location Date Diagnosis [facility] [id number] [place] [address] 93598- 3714 Oct, [facility] [id number] [place] [address] 70162- 3582 Sep, Chronic pain due to trauma G89.21 ; Other chronic pain G89.29 and Pain in left hand M79.642 [facility] [address] [place] [address] 01981 -4203 Sep, Shortness of breath R06.02 and Syncope, unspecified syncope type R55 [facility] [id number] [place] [address] 77417- 9344 Sep, PTSD (post-traumatic stress disorder) F43.10 ; Severe episode of recurrent major depressive disorder, without 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 ; Mixed obsessional thoughts and acts F42.2 and RAQUEL (generalized anxiety disorder) F41.1 [place] [address], [place] [address] Aug, Chronic pain due to trauma G89.21 [place] [id number] [place] [address] 55150- 9068 Aug, PTSD (post-traumatic stress disorder) F43.10 ; Severe episode of recurrent major depressive disorder, without 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 ; Mixed obsessional thoughts and acts F42.2 and RAQUEL (generalized anxiety disorder) F41.1 [place] [id number] [place] [address] 79805- 4897 Aug, PTSD (post-traumatic stress disorder) F43.10 and Major depressive disorder, single episode, unspecified F32.9 [place] [id number] [place] [address] 41422- 2958 Jul, PTSD (post-traumatic stress disorder) F43.10 and Major depressive disorder, single episode, unspecified F32.9 [place] [id number] [place] [address] 66470- 8124 Jul, Chronic pain due to trauma G89.21 [place] [id number] [place] [address] 07642- 4291 Jul, PTSD (post-traumatic stress disorder) F43.10 ; Severe episode of recurrent major depressive disorder, without 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 ; RAQUEL (generalized anxiety disorder) F41.1 and Mixed obsessional thoughts and acts F42.2 [place] [address] [place] [address] 27863- 7097 Jul, PTSD (post-traumatic stress disorder) F43.10 and Major depressive disorder, single episode, unspecified F32.9 [place] [address] [place] [address] 50261- 4735 June, Chronic pain due to trauma G89.21 [place] [id number] [place] [address] 89474- 5063 June, PTSD (post-traumatic stress disorder) F43.10 ; Severe episode of recurrent major depressive disorder, without 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 ; Mixed obsessional thoughts and acts F42.2 and RAQUEL (generalized anxiety disorder) F41.1 [place] [address] [place] [address] 33755- 0991 May, Chronic pain due to trauma G89.21 [place] [address] [address] [id number] [place] [address] 444965- 8572 May, PTSD (post-traumatic stress disorder) F43.10 [place] [id number] [place] [address] 84704- 0112 May, Chronic pain due to trauma G89.21 [place] [id number] [place] [address] 58697- 3271 May, PTSD (post-traumatic stress disorder) F43.10 ; Severe episode of recurrent major depressive disorder, without 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 ; Mixed obsessional thoughts and acts F42.2 and RAQUEL (generalized anxiety disorder) F41.1 [place] [id number] [place] [address] 93457- 4122 Apr, Elevated lipids E78.5 [place] [id number] [place] [address] 90242- 9353 Apr, PTSD (post-traumatic stress disorder) F43.10 and Major depressive disorder, single episode, unspecified F32.9 [place] [address] [place] [address] 50785- 1352 Apr, Encounter to establish care Z76.89 [place] [id number] [place] [address] 04748- 8256 Apr, Chronic pain due to trauma G89.21 [place] [id number] [place] [address] 75959- 8278 Apr, Encounter to establish care Z76.89 ; Chronic pain due to trauma G89.21 ; Major depressive disorder, single episode, unspecified F32.9 ; Anxiety disorder, unspecified F41.9 ; PTSD (post-traumatic stress disorder) F43.10 and Syncope, unspecified syncope type R55 [facility] [address] [facility] [id number] [place] [address] Apr, Fever, unspecified fever cause R50.9 and Viral upper respiratory tract infection J06.9 [facility] [address] [facility] [id number] [place] [address] June, IMMUNIZATIONS No Known Immunizations SOCIAL HISTORY Never Assessed REASON FOR VISIT Controlled Med Refill PLAN OF CARE VITAL SIGNS MEDICATIONS Medication Instructions Dosage Frequency Start Date End Date Duration Status Hydrocodone-Acetaminophen 5-325 MG Orally every 6 hours as needed for pain 1- 2 tablets as needed Jul, 28 days Active Cyclobenzaprine HCl 10 mg Orally twice a day 1 tablet as needed 12h 23 Apr 30 days Active RESULTS No Results PROCEDURES No [...]
--- OUTSIDE RECORDS SUMMARY | 2017-11-06 17:17 | XMS REPORT ---
Author Author AKILAH HERNANDEZ Organization [facility] Address [address] [place] [address] Care Team Providers Care Straight Edger Name Role Phone DAVIDARDHAAKILAH Unavailable PROBLEMS Type Condition ICD9-CM Code DAD09-XO Code Onset Dates Condition Status SNOMED Code Problem Chronic pain due to trauma G89.21 Active 444612573 Problem Major depressive disorder, single episode, unspecified F32.9 Active 11219814 Problem Anxiety disorder, unspecified F41.9 Active 137752082 Problem Other chronic pain G89.29 Active 18197850 Problem Elevated lipids E78.5 Active 148155107 Problem RAQUEL (generalized anxiety disorder) F41.1 Active 91206695 Problem PTSD (post-traumatic stress disorder) F43.10 Active 63445595 Problem Severe episode of recurrent major depressive disorder, without 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 Active 59439809 Problem Mixed obsessional thoughts and acts F42.2 Active 75170062 ALLERGIES No Information ENCOUNTERS Encounter Location Date Diagnosis [facility] [id number] [place] [address] 95187- 5827 Oct, [facility] [id number] [place] [address] 70868- 3340 Sep, Chronic pain due to trauma G89.21 ; Other chronic pain G89.29 and Pain in left hand M79.642 [facility] [address] [place] [address] 65154 -9740 Sep, Shortness of breath R06.02 and Syncope, unspecified syncope type R55 [facility] [id number] [place] [address] 06770- 2600 Sep, PTSD (post-traumatic stress disorder) F43.10 ; Severe episode of recurrent major depressive disorder, without 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 ; Mixed obsessional thoughts and acts F42.2 and RAQUEL (generalized anxiety disorder) F41.1 [place] [address] [address] Aug, Chronic pain due to trauma G89.21 [place] [address] [id number] [place] [address] 22943- 0836 Aug, PTSD (post-traumatic stress disorder) F43.10 ; Severe episode of recurrent major depressive disorder, without 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 ; Mixed obsessional thoughts and acts F42.2 and RAQUEL (generalized anxiety disorder) F41.1 [place] [address] [place] [address] 10674- 8998 Aug, PTSD (post-traumatic stress disorder) F43.10 and Major depressive disorder, single episode, unspecified F32.9 [place] [address] [id number] [place] [address] 19391- 7343 Jul, PTSD (post-traumatic stress disorder) F43.10 and Major depressive disorder, single episode, unspecified F32.9 [place] [address] [address] [id number] [place] [address] 94100- 4643 Jul, Chronic pain due to trauma G89.21 [place] [address] [id number] [place] [address] 86683- 9884 Jul, PTSD (post-traumatic stress disorder) F43.10 ; Severe episode of recurrent major depressive disorder, without 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 ; RAQUEL (generalized anxiety disorder) F41.1 and Mixed obsessional thoughts and acts F42.2 [place] [address] [place] [address] 77369- 3823 Jul, PTSD (post-traumatic stress disorder) F43.10 and Major depressive disorder, single episode, unspecified F32.9 [place] [id number] [place] [address] 52209- 7905 June, Chronic pain due to trauma G89.21 [place] [address] [id number] [place] [address] 13162- 8748 June, PTSD (post-traumatic stress disorder) F43.10 ; Severe episode of recurrent major depressive disorder, without 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 ; Mixed obsessional thoughts and acts F42.2 and RAQUEL (generalized anxiety disorder) F41.1 [place] [address] [address]- 2394 May, Chronic pain due to trauma G89.21 [place] [address] [id number] [place] [address] 143886- 5832 May, PTSD (post-traumatic stress disorder) F43.10 [place] [address] [address] [id number] [place] [address] 19066- 9671 May, Chronic pain due to trauma G89.21 [place] [address] [address] [id number] [place] [address] 29384- 2661 May, PTSD (post-traumatic stress disorder) F43.10 ; Severe episode of recurrent major depressive disorder, without 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 ; Mixed obsessional thoughts and acts F42.2 and RAQUEL (generalized anxiety disorder) F41.1 [place] [address] [address] [id number] [place] [address] 00118- 2993 Apr, Elevated lipids E78.5 [place] [address] [place] [id number] [place] [address] 76763- 2492 Apr, PTSD (post-traumatic stress disorder) F43.10 and Major depressive disorder, single episode, unspecified F32.9 [place] [address] [place] [id number] [place] [address] 17169- 8588 Apr, Encounter to establish care Z76.89 [place] [address] [place] [id number] [place] [address] 17145- 8485 Apr, Chronic pain due to trauma G89.21 [place] [address] [id number] [place] [address] 09384- 6739 Apr, Encounter to establish care Z76.89 ; Chronic pain due to trauma G89.21 ; Major depressive disorder, single episode, unspecified F32.9 ; Anxiety disorder, unspecified F41.9 ; PTSD (post-traumatic stress disorder) F43.10 and Syncope, unspecified syncope type R55 [facility] [address] [facility] [id number] [place] [address] Apr, Fever, unspecified fever cause R50.9 and Viral upper respiratory tract infection J06.9 [facility] [address] [facility] [id number] [place] [address]- 26[address] June, IMMUNIZATIONS No Known Immunizations SOCIAL HISTORY Never Assessed REASON FOR VISIT Follow-up Anxiety/PTSD PLAN OF CARE Activity Details Follow Up 2 Weeks Reason: Follow-up VITAL SIGNS MEDICATIONS Unknown Medications RESULTS No Results PROCEDURES Procedure Date Ordered Result Body Site Psychotherapy, patient &/family, 45 minutes, established patient August 15, 2017 INSTRUCTIONS MEDICATIONS ADMINISTERED No Known Medications [...]
--- OUTSIDE RECORDS SUMMARY | 2017-11-06 17:18 | XMS REPORT ---
Author Author AKILAH HERNANDEZ Organization [facility] Address [address] [place] [address] Care Team Providers Care Slipman Name Role Phone AKILAH HERNANDEZ Unavailable PROBLEMS Type Condition ICD9-CM Code EBO52-HK Code Onset Dates Condition Status SNOMED Code Problem Chronic pain due to trauma G89.21 Active 002023772 Problem PTSD (post-traumatic stress disorder) F43.10 Active 26388918 Problem Elevated lipids E78.5 Active 258954687 Problem Severe episode of recurrent major depressive disorder, without 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 Active 49934775 Problem Major depressive disorder, single episode, unspecified F32.9 Active 68628701 Problem Anxiety disorder, unspecified F41.9 Active 249999595 Problem Mixed obsessional thoughts and acts F42.2 Active 14745515 Problem RAQUEL (generalized anxiety disorder) F41.1 Active 54112326 ALLERGIES No Information ENCOUNTERS Encounter Location Date Diagnosis [facility] [id number] [place] [phone] Oct, [facility] [id number] [place] [phone] Sep, [facility] [id number] [place] [phone] Sep, Shortness of breath R06.02 and Syncope, unspecified syncope type R55 [facility] [id number] [place] [address] Sep, PTSD (post-traumatic stress disorder) F43.10 ; Severe episode of recurrent major depressive disorder, without 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 ; Mixed obsessional thoughts and acts F42.2 and RAQUEL (generalized anxiety disorder) F41.1 [facility] [address] [phone] Aug, Chronic pain due to trauma G89.21 [place] [id number] [place] [address] 86482- 3868 Aug, PTSD (post-traumatic stress disorder) F43.10 ; Severe episode of recurrent major depressive disorder, without 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 ; Mixed obsessional thoughts and acts F42.2 and RAQUEL (generalized anxiety disorder) F41.1 [place] [id number] [place] [address] 118[address]- [address]112 Aug, PTSD (post-traumatic stress disorder) F43.10 and Major depressive disorder, single episode, unspecified F32.9 [place] [id number] [place] [address] 04913[address] Jul, PTSD (post-traumatic stress disorder) F43.10 and Major depressive disorder, single episode, unspecified F32.9 [place] [id number] [place] [address] 62623- 5[address] Jul, Chronic pain due to trauma G89.21 [place] [id number] [place] [address]66- [address] Jul, PTSD (post-traumatic stress disorder) F43.10 ; Severe episode of recurrent major depressive disorder, without 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 ; RAQUEL (generalized anxiety disorder) F41.1 and Mixed obsessional thoughts and acts F42.2 [place] [id number] [place] [address]35- [address] Jul, PTSD (post-traumatic stress disorder) F43.10 and Major depressive disorder, single episode, unspecified F32.9 [place] [id number] [place] [address] 78130[address] 79[address] June, Chronic pain due to trauma G89.21 [place] [id number] [place] [address] 10959- 2859 June, PTSD (post-traumatic stress disorder) F43.10 ; Severe episode of recurrent major depressive disorder, without 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 ; Mixed obsessional thoughts and acts F42.2 and RAQUEL (generalized anxiety disorder) F41.1 [place] [id number] [place] [address] 38806- [address] May, Chronic pain due to trauma G89.21 [place] [id number] [place] [address] 81671- [address]604 May, PTSD (post-traumatic stress disorder) F43.10 [place] [id number] [place] [address] 25907- 1580 May, Chronic pain due to trauma G89.21 [place] [id number] [place] [address] 49553- 631 May, PTSD (post-traumatic stress disorder) F43.10 ; Severe episode of recurrent major depressive disorder, without 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 ; Mixed obsessional thoughts and acts F42.2 and RAQUEL (generalized anxiety disorder) F41.1 [place] [id number] [place] [address] 30656- 7[address] Apr, Elevated lipids E78.5 [place] [id number] [place] [address] 27681- 7287 Apr, PTSD (post-traumatic stress disorder) F43.10 and Major depressive disorder, single episode, unspecified F32.9 [place] [id number] [place] [address] 74116- 2767 Apr, Encounter to establish care Z76.89 [place] [id number] [place] [address]15- [address]14 Apr, Chronic pain due to trauma G89.21 [place] [id number] [place] [address] 77972- 1873 Apr, Encounter to establish care Z76.89 ; Chronic pain due to trauma G89.21 ; Major depressive disorder, single episode, unspecified F32.9 ; Anxiety disorder, unspecified F41.9 ; PTSD (post-traumatic stress disorder) F43.10 and Syncope, unspecified syncope type R55 [facility] [address] [facility] [id number] [place] [address] Apr, Fever, unspecified fever cause R50.9 and Viral upper respiratory tract infection J06.9 [facility] [address] [facility] [id number] [place] [address] June, IMMUNIZATIONS No Known Immunizations SOCIAL HISTORY Never Assessed REASON FOR VISIT Follow-up Anxiety/PTSD PLAN OF CARE Activity Details Follow Up 2 Weeks Reason: Follow-up VITAL SIGNS MEDICATIONS Unknown Medications RESULTS No Results PROCEDURES Procedure Date Ordered Result Body Site Psychotherapy, patient &/family, 45 minutes, established patient July 31, 2017 INSTRUCTIONS MEDICATIONS ADMINISTERED No Known Medications [...]
[2017-11-06] MEDS ORDERED: HYDROmorphone 2 MG/ML VIAL (DILAUDID) IV STA (18:28)
--- NOTE | 2017-11-06 18:42 | ED Fall/Injury ---
General Chief Complaint: Trauma-Non Activation Stated Complaint: R SIDE BACK, SHOULDER, NECK PAIN Nursing Triage Note: Pt stated that she fell from her porch approx. 3 1/2ft to the ground. Pt stated that she landed on her right side, hitting her RKnee, RNeck, RFlank, RChest, and RShoulder. Pt stated that she had to call her and children because she was unable to get off the ground. Pt denies LOC. Pt stated that she tried to cope with the pain, but it has become unbearable. Pt has limited ROM RShoulder. Source: patient, family History of Present Illness Date Seen by Provider: Nov 06, 2017 Time Seen by Provider: 18:05 Initial Comments Here with report of right shoulder, neck and upper back pain as well as some mild right knee pain after a fall that occurred several days ago. She apparently fell off her porch 3 Feet to the ground. She landed on her right knee and shoulder. Does have abrasion to the right knee. She has long- standing problems with this knee and states that currently it is not worse after the fall but the pain in her right shoulder, back and chest is new and markedly worse. Reports it hurts to take a deep breath or cough. Reports pain with movement of her right shoulder. Distal movement and sensation intact to the right arm. Pain is right mid C-spine and right upper back between the shoulder blades along the thoracic spine. Location Injury Occurred: RFLANK/SIDE, NECK, RSHOULDER, RCHEST, RKNEE Occurred: other (6 days ago) Severity: moderate Injuries/Pain Location: neck, upper extremity, back, lower extremity Context: other (Fell related to knee problems) Loss of Consciousness: no loss of consciousness Modifying Factors: Improves With Immobilization; Worse With Movement Associated Symptoms (Fall): No Abdominal Pain, No Chest Pain, No Headache; Muscle Spasms, Neck Pain Allergies and Home Medications Allergies Coded Allergies: Penicillins (Verified Allergy, Unknown, 04/28/17) Sulfa (Sulfonamide Antibiotics) (Verified Allergy, Unknown, 04/28/17) Home Medications Aspirin 81 Mg Tablet., 81 MG PO DAILY Prescribed by: DAYO ZHOU on 04/30/17 1534 Hydroxyzine Pamoate 25 Mg Capsule, 25 MG PO Q4H PRN for ANXIETY Prescribed by: TASNEEM YOUNG on 10/12/17 1810 Patient Home Medication List Home Medication List Reviewed: Yes Review of Systems Review of Systems Constitutional: see HPI; No chills, No fever Eyes: No Symptoms Reported Ears, Nose, Mouth, Throat: no symptoms reported Respiratory: see HPI; No dyspnea on exertion; other (Pain with deep breathing) Cardiovascular: No palpitations, No syncope Gastrointestinal: No abdominal pain, No nausea, No vomiting Genitourinary: no symptoms reported Musculoskeletal: see HPI, back pain, joint pain, muscle pain, neck pain Skin: No change in color; lesions (Abrasion to the right knee) Psychiatric/Neurological: No Symptoms Reported All Other Systems Reviewed Negative Unless Noted: Yes Past Titiuvc-Lgjljx-Idbfmb Hx Past Med/Social Hx: Reviewed Nursing Past Med/Soc Hx Patient Social History Alcohol Use: Denies Use Recreational Drug Use: No Smoking Status: Former Smoker Type Used: Cigarettes 2nd Hand Smoke Exposure: No Recent Foreign Travel: No Contact w/Someone Who Travel: No Recent Hopitalizations: No Physical Abuse: No Sexual Abuse: No Mistreated: No Fear: No Immunizations Up To Date Tetanus Booster (TDap): Less than 5yrs Seasonal Allergies Seasonal Allergies: No Past Medical History Surgeries: Yes (R/L KNEE, L5-S1 FUSION, ) Hysterectomy, Orthopedic Respiratory: No Cardiac: Yes Hypertension Neurological: No Female Reproductive Disorders: Denies [employer] History: Hysterectomy Genitourinary: No Gastrointestinal: No Musculoskeletal: Yes Degenerate Disk Disease, Chronic Back Pain Endocrine: No HEENT: No Cancer: No Psychosocial: No Integumentary: No Blood Disorders: No Family Medical History Reviewed Nursing Family Hx No Pertinent Family Hx Physical Exam Vital Signs Vital Signs - First Documented 11/06/17 17:32 Temp 98.1 Pulse 69 Resp 16 B/P (MAP) 127/82 (97) Pulse Ox 100 O2 Delivery Room Air Capillary Refill : Height, Weight, BMI Height: 5'5.00" Weight: 170lbs. 0.0oz. 77.584129nr; 30.8 BMI Method:Stated General Appearance: WD/WN, mild distress HEENT: PERRL/EOMI, pharynx normal Neck: No lymphadenopathy (R), No lymphadenopathy (L); tender lateral (Right greater than left), tender midline (Mid cervical) Cardiovascular: regular rate, rhythm, no murmur Respiratory: lungs clear, normal breath sounds Gastrointestinal: non tender, soft Back: muscle spasm (Upper back bilateral with right greater than left), vertebral tenderness (Mid thoracic) Extremities: other (Mild tenderness of the right knee that she states is chronic. Right shoulder with pain with range of motion in abduction above the level of the shoulder and forward flexion. Also pain with internal and external rotation. States pain is anterior and posterior along the shoulder. This also worsens pain on the shoulder blade itself.) Neurologic/Psychiatric: alert, oriented x 3 Skin: normal color, warm/dry, other (2.5 cm abrasion to the anterior knee just below the patella structure. Appears to be healing well.) Daisy Coma Score Best Eye Response: (4) Open Spontaneously Best Verbal Response: (5) Oriented Best Motor Response: (6) Obeys Commands Progress/Results/Core Measures Results/Orders My Orders Orders - LUCIA COLLINS MD Ct Chest Wo (11/06/17 18:28) Saline Lock/Iv-Start (11/06/17 18:28) Hydromorphone Injection (Dilaudid Inject (11/06/17 18:28) Ct Cervical/Thoracic Spine Wo (11/06/17 18:28) Shoulder, Right, 3 Views (11/06/17 18:28) Ketorolac Injection (Toradol Injection) (11/06/17 20:05) Ketamine Injection (Ketalar Injection) (11/06/17 20:15) Medications Given in ED Current Medications Medications Dose Ordered Sig/Ericka Route Start Time Stop Time Status Last Admin Dose Admin Ketamine HCl 10 mg ONCE ONCE IV 11/06/17 20:15 11/06/17 20:16 DC 11/06/17 20:36 10 MG Vital Signs/I&O 11/06/17 17:32 Temp 98.1 Pulse 69 Resp 16 B/P (MAP) 127/82 (97) Pulse Ox 100 O2 Delivery Room Air Progress Progress Note : Progress Note Seen and evaluated. IV, Dilaudid 1 mg IV, CT of the C-spine and thoracic spine as well as the chest ordered. X-ray right shoulder ordered. Monitor patient. Pain a little better after Dilaudid that persists. CT and x-rays reviewed and no acute findings. 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 Due to return of pain, we talked about different options for pain management. We will try Toradol 30 mg IV and ketamine 10 mg IV and an effort to reset receptors and provide better pain relief. This was discussed at length with patient and family who agree. 2114: Patient states she is actually feeling a little bit better. Ultimately since there is no acute fractures patient and family and I have decided that we will continue her current pain regimen without adjustment and she will follow up with her pain management doctor. She will continue ibuprofen as needed and topical therapy as well. Discharged home with return precautions. Patient verbalize understanding instructions and agreement with plan. Diagnostic Imaging Diagonstic Imaging: CT Plain Films/CT/US/NM/MRI: chest [facility] [place] [place] NAME: TOBIAS OG [facility] REC#: [id number] PT STATUS: REG ER : 1970 PHYSICIAN: LUCIA COLLINS MD ADMIT DATE: 11/06/17/ER Draft Date of Exam:11/06/17 CT CHEST WO PROCEDURE: CT chest without contrast. TECHNIQUE: Multiple contiguous axial images were obtained through the chest without the use of intravenous contrast. INDICATION: Fall from porch, pain. FINDINGS: No lung contusion, pneumothorax, or hemothorax. Reconstruction views reveal the sternum, manubrium, and thoracic spine to be unremarkable. No rib fracture deformity apparent. No evidence for pleural hematoma. No mediastinal or pericardial fluid. The upper abdomen is nonacute. Lungs are clear. No mass. IMPRESSION: No acute or post-traumatic sequelae identified. Dictated on workstation # [id number] Dict: 11/06/171907 Trans: 11/06/171911 [id number] Interpreted by: AVIVA JHAVERI Electronically signed by: Diagonstic Imaging: CT Plain Films/CT/US/NM/MRI: c-spine, other (thoracic) Comments [facility] [place] NAME: TOBIAS OG [facility] REC#: [id number] PT STATUS: REG ER : 1970 PHYSICIAN: LUCIA COLLINS MD ADMIT DATE: 11/06/17/ER Draft Date of Exam:11/06/17 CT CERVICAL/THORACIC SPINE WO INDICATION: Fall, pain. COMPARISON: 04/28/2017 TECHNIQUE: Multiple contiguous axial CT images are obtained through the cervicothoracic spine without the use of intravenous contrast dated November 06, 2017. Sagittal and coronal reformatted images were reviewed. FINDINGS: Anterior plate and screw fixation of C5 and C6 is identified with associated interbody disc device and osseous bridging. No evidence of hardware complication. Alignment of the cervical spine is well maintained. Alignment of the atlanto-occipital joint is well maintained. Vertebral body heights are well maintained. No acute fracture or dislocation. No destructive osseous process. Disc bulge at C4/C5 resulting in mild central canal stenosis. The paraspinal soft tissues are unremarkable. Alignment of the thoracic spine is well maintained. Vertebral body heights are well maintained. No severe disc space height loss. Sclerotic lesion within the left pedicle is unchanged since April 2017. No acute fracture or dislocation. Dural calcification is identified at the T4/T5 level on the right. There is resulting right neuroforaminal stenosis and mild central canal stenosis. Mild left neuroforaminal stenosis is present at T5/T6 secondary to hypertrophic changes of the facet joint. No pneumothorax. Calcified mediastinal lymph nodes. Left adrenal enlargement is again identified with Hounsfield units below 10. Minimally visualized abdomen is otherwise unremarkable. IMPRESSION: 1. No acute osseous abnormality. 2. Scattered degenerative changes, resulting in central canal and neuroforaminal stenosis as described above. 3. Postsurgical changes within the cervical spine. Dictated on workstation # [id number] Dict: 11/06/171910 Trans: 11/06/171931 [facility] [id number] Interpreted by: RONNY CRISTINA MD Electronically signed by: Diagonstic Imaging: Xray Plain Films/CT/US/NM/MRI: other Comments [facility]. [place] NAME: TOBIAS OG [facility] REC#: [id number] PT STATUS: REG ER : 1970 PHYSICIAN: LUCIA COLLINS MD ADMIT DATE: 11/06/17/ER Draft Date of Exam:11/06/17 SHOULDER, RIGHT, 3 VIEWS INDICATION: Pain, fall. FINDINGS: Three-view right shoulder show no fracture or dislocation. The visualized ribs and pleura are unremarkable. The alignment is normal. There is some spurring off the undersurface of the distal acromion. IMPRESSION: No acute-appearing abnormality. Dictated on workstation # [id number] Dict: 11/06/171911 Trans: 11/06/171914 [id number] Interpreted by: AVIVA JHAVERI Electronically signed by: Departure Impression Primary Impression: Neck muscle strain Qualified Codes: S16.1XXA - Strain of muscle, fascia and tendon at neck level , initial encounter Additional Impressions: Upper back strain Qualified Codes: S29.012A - Strain of muscle and tendon of back wall of thorax , initial encounter Contusion of right shoulder Qualified Codes: S40.011A - Contusion of right shoulder, initial encounter Disposition: 01 HOME, SELF-CARE Condition: Stable Departure-Patient Inst. Decision time for Depature: 21:20 Referrals: [facility] ([place]) Primary Care Physician Patient Instructions: CHEST CONTUSION, Contusion (DC), Muscle Strain (DC) Add. Discharge Instructions: All discharge instructions reviewed with patient and/or family. Voiced understanding. Follow-up with your Dr. in a few days for recheck and further evaluation and to discuss your continued pain management. Return for worsening, fever, vomiting, weakness, breathing problems or other concerns as needed. You may continue ibuprofen 600 mg every 6-8 hours as needed for pain. You may also use over-the- counter preparations such as icy hot with lidocaine or Aspercreme with lidocaine to the areas of concern per package directions. LUCIA COLLINS MD Nov 06, 2017 18:42
--- NOTE | 2017-11-06 19:13 | Diagnostic Imaging Report ---
PROCEDURE: CT chest without contrast. TECHNIQUE: Multiple contiguous axial images were obtained through the chest without the use of intravenous contrast. INDICATION: Fall from porch, pain. FINDINGS: No lung contusion, pneumothorax, or hemothorax. Reconstruction views reveal the sternum, manubrium, and thoracic spine to be unremarkable. No rib fracture deformity apparent. No evidence for pleural hematoma. No mediastinal or pericardial fluid. The upper abdomen is nonacute. Lungs are clear. No mass. IMPRESSION: No acute or post-traumatic sequelae identified. Dictated by: Dictated on workstation # [id number]
--- NOTE | 2017-11-06 19:16 | Diagnostic Imaging Report ---
INDICATION: Pain, fall. FINDINGS: Three-view right shoulder show no fracture or dislocation. The visualized ribs and pleura are unremarkable. The alignment is normal. There is some spurring off the undersurface of the distal acromion. IMPRESSION: No acute-appearing abnormality. Dictated by: Dictated on workstation # [id number]
--- NOTE | 2017-11-06 19:32 | Diagnostic Imaging Report ---
INDICATION: Fall, pain. COMPARISON: 04/28/2017 TECHNIQUE: Multiple contiguous axial CT images are obtained through the cervicothoracic spine without the use of intravenous contrast dated November 06, 2017. Sagittal and coronal reformatted images were reviewed. FINDINGS: Anterior plate and screw fixation of C5 and C6 is identified with associated interbody disc device and osseous bridging. No evidence of hardware complication. Alignment of the cervical spine is well maintained. Alignment of the atlanto-occipital joint is well maintained. Vertebral body heights are well maintained. No acute fracture or dislocation. No destructive osseous process. Disc bulge at C4/C5 resulting in mild central canal stenosis. The paraspinal soft tissues are unremarkable. Alignment of the thoracic spine is well maintained. Vertebral body heights are well maintained. No severe disc space height loss. Sclerotic lesion within the left pedicle is unchanged since April 2017. No acute fracture or dislocation. Dural calcification is identified at the T4/T5 level on the right. There is resulting right neuroforaminal stenosis and mild central canal stenosis. Mild left neuroforaminal stenosis is present at T5/T6 secondary to hypertrophic changes of the facet joint. No pneumothorax. Calcified mediastinal lymph nodes. Left adrenal enlargement is again identified with Hounsfield units below 10. Minimally visualized abdomen is otherwise unremarkable. IMPRESSION: 1. No acute osseous abnormality. 2. Scattered degenerative changes, resulting in central canal and neuroforaminal stenosis as described above. 3. Postsurgical changes within the cervical spine. Dictated by: Dictated on workstation # [id number]
[2017-11-06] MEDS ORDERED: KETOROLAC 30 MG/ML VIAL IVP STA (20:05)
[2017-11-06] MEDS ORDERED: KETAMINE HCL 100 MG/ML 5 ML VIAL IV ONE (20:15)
[2017-11-06 21:29] VITALS: BP 130/98
== END 2017-11-06 21:29 | disposition home or self-care (01) ==
LOC: EDUNIT# 17:12 → ER 17:14
DX: S16.1XXA Strain of muscle, fascia and tendon at neck level, initial encounter (principal); S29.012A Strain of muscle and tendon of back wall of thorax, initial encounter; S40.011A Contusion of right shoulder, initial encounter; I10 Essential (primary) hypertension; R40.2142 Coma scale, eyes open, spontaneous, at arrival to emergency department; R40.2252 Coma scale, best verbal response, oriented, at arrival to emergency department; R40.2362 Coma scale, best motor response, obeys commands, at arrival to emergency department; Z88.0 Allergy status to penicillin; Z88.2 Allergy status to sulfonamides; Z87.891 Personal history of nicotine dependence; Z98.1 Arthrodesis status; Z90.710 Acquired absence of both cervix and uterus; W13.8XXA Fall from, out of or through other building or structure, initial encounter
CPT/HCPCS: 71250; 72125; 72128; 73030; 96374; 96375

== ENCOUNTER 2018-04-18 19:55 | Emergency (ER) | payer SELFPAY ==
[~2018-04-18] VITALS: Ht 165.1 cm; Wt 77.1 kg
[2018-04-18] MEDS ORDERED: IBUPROFEN 800 MG (MOTRIN) TAB PO ONE (20:30)
[2018-04-18] MEDS ORDERED: ACETAMINOPHEN 500 MG TAB (TYLENOL) PO ONE (20:30)
[2018-04-18] MEDS ORDERED: RX-OSELTAMIVIR 75 MG (TAMIFLU) BOX OF 10 PO STA (21:15)
--- NOTE | 2018-04-18 21:22 | ED General ---
General Chief Complaint: Fever-Adult/Adol Stated Complaint: FEVER, BODY ACHES Nursing Triage Note: AMBULATORY TO ED WITH C/O FEVER ON AND OFF WITH HIGHEST 101.3. HAS ONLY TAKEN PRESCRIBED NORCO AND MOBIC. DENIES COUGH. HAS HAD RUNNY NOSE AND CONGESTION. NAUSEATED LAST NOC, DENIES ABD PAIN AND DIARRHEA. S/O STATES SHE "PASSED OUT IN THE WAITING ROOM", PT HAS HX OF THESE TYPES OF EPISODES AND HAS LOOP RECORDER IN PLACE FOR APPROX [address] BEATTY. Nursing Sepsis Screen: Possible Sepsis Risk Allergies and Home Medications Allergies Coded Allergies: Penicillins (Verified Allergy, Unknown, 04/28/17) Sulfa (Sulfonamide Antibiotics) (Verified Allergy, Unknown, 04/28/17) Home Medications Aspirin 81 Mg Tablet.dr, 81 MG PO DAILY Prescribed by: DAYO ZHOU on 04/30/17 1534 Hydroxyzine Pamoate 25 Mg Capsule, 25 MG PO Q4H PRN for ANXIETY Prescribed by: TASNEEM YOUNG on 10/12/17 1810 Past Fcmpwir-Wumnts-Ynxlsz Hx Patient Social History Alcohol Use: Denies Use Recreational Drug Use: No Smoking Status: Former Smoker Type Used: Cigarettes Former Smoker, Quit: Dec 20, 2013 2nd Hand Smoke Exposure: No Recent Foreign Travel: No Contact w/Someone Who Travel: No Recent Infectious Disease Expo: No Recent Hopitalizations: No Immunizations Up To Date Tetanus Booster (TDap): Less than 5yrs Seasonal Allergies Seasonal Allergies: No Past Medical History Surgeries: Yes (R/L KNEE, L5-S1 FUSION, ) Hysterectomy, Orthopedic Respiratory: No Cardiac: Yes Hypertension Neurological: No 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 0.0oz. 77.270400vx; 30.8 BMI Method:Stated Progress/Results/Core Measures Suspected Sepsis Recent Fever Within 48 Hours: Yes Infection Criteria Present: Suspected New Infection New/Unexplained Altered Menta: No Sepsis Screen: Possible Sepsis Risk SIRS Temperature:102.2 Pulse: 115 Respiratory Rate: 19 Blood Pressure 158 /106 Mean: 123 Results/Orders Micro Results Microbiology 04/18/18 Influenza Types A,B Antigen (ROMI) - Final, Complete My Orders Orders - WANDY RAMÍREZ DO Influenza A And B Antigens (04/18/18 20:12) Acetaminophen Tablet (Tylenol Tablet) (04/18/18 20:30) Ibuprofen Tablet (Motrin Tablet) (04/18/18 20:30) Rx-Oseltamivir Caps (Rx-Tamiflu Caps) (04/18/18 21:15) Medications Given in ED Current Medications Medications Dose Ordered Sig/Ericka Route Start Time Stop Time Status Last Admin Dose Admin Acetaminophen 1,000 mg ONCE ONCE PO 04/18/18 20:30 04/18/18 20:31 DC 04/18/18 20:39 1,000 MG Ibuprofen 800 mg ONCE ONCE PO 04/18/18 20:30 04/18/18 20:31 DC 04/18/18 20:38 800 MG Vital Signs/I&O 04/18/18 04/18/18 20:14 20:39 Temp 102.2 102.2 Pulse 115 Resp 19 B/P (MAP) 158/106 (123) Capillary Refill : Less Than 3 Seconds Blood Pressure Mean: 123 Progress Note : Progress Note TEMP DOWN TO 100.3 AT DISMISSAL Departure Impression Primary Impression: Influenza-like symptoms Disposition: 01 HOME, SELF-CARE Condition: Improved Departure-Patient Inst. Referrals: [facility] (PCP/Family) Primary Care Physician Patient Instructions: Flu, Adult (DC) Add. Discharge Instructions: LOTS OF CLEAR LIQUIDS--WATER, BROTH, JELLO, GATORADE TYLENOL --UP TO 4000 MG /DAY AND IBUPROFEN --UP TO 3200 MG / DAY DO NOT TAKE MELOXICAM WHILE TAKING IBUPROFEN OVER THE COUNTER MEDICATIONS NEEDED FOR COUGH AND CONGESTION TAKE TAMIFLU TWICE A DAY FOR 5 DAYS FOLLOW UP WITH YOUR DR IN 3-4 DAYS IF NO BETTER All discharge instructions reviewed with patient and/or family. Voiced understanding. Work/School Note: Work Release Form Date Seen in the Emergency Department: Apr 18, 2018 Return to Work: Apr 24, 2018 WANDY RAMÍREZ DO Apr 18, 2018 21:22
[2018-04-18 21:30] VITALS: BP 146/96
--- OUTSIDE RECORDS SUMMARY | 2018-04-21 03:48 | XMS REPORT ---
Author Author FRANCISCO J DUNLAP Organization [facility] Address [address] [place] [address] Care Team Providers Care Field Gauger Name Role Phone YASMINEJEWELL LAMBERTA Unavailable PROBLEMS Type Condition ICD9-CM Code [id number] Code Onset Dates Condition Status SNOMED Code Problem Chronic pain due to trauma G89.21 Active 306883050 Problem Major depressive disorder, single episode, unspecified F32.9 Active 90440524 Problem Anxiety disorder, unspecified F41.9 Active 606495849 Problem Other chronic pain G89.29 Active 48356821 Problem Elevated lipids E78.5 Active 655672301 Problem RAQUEL (generalized anxiety disorder) F41.1 Active 06079379 Problem PTSD (post-traumatic stress disorder) F43.10 Active 12321436 Problem Severe episode of recurrent major depressive disorder, without 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 Active 01760677 Problem Mixed obsessional thoughts and acts F42.2 Active 69387617 ALLERGIES No Information ENCOUNTERS Encounter Location Date Diagnosis [place] [id number] [place] [address] Jan, [place] [id number] [place] [address] 50498- 7844 Nov, [place] [id number] [place] [address] 75766- 6229 Nov, Chronic pain due to trauma G89.21 [facility] [id number] [place] [address] 68050- 8227 Oct, PTSD (post-traumatic stress disorder) F43.10 ; Severe episode of recurrent major depressive disorder, without 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 ; Mixed obsessional thoughts and acts F42.2 and RAQUEL (generalized anxiety disorder) F41.1 [place] [address] [address] Oct, Chronic pain due to trauma G89.21 [facility] [address] [place] [address] Oct, Chronic pain due to trauma G89.21 [facility] [address], [place] [address] Oct, Chronic pain due to trauma G89.21 [facility] [id number] [place] [address] 19889- 8300 13 Oct, 2017 [facility] [address] [place] [address] 80786- 6164 Sep, Chronic pain due to trauma G89.21 ; Other chronic pain G89.29 and Pain in left hand M79.642 [facility] [address], [place] [address] Sep, Shortness of breath R06.02 and Syncope, unspecified syncope type R55 [facility] [address] [place] [address] 38128- 0321 Sep, PTSD (post-traumatic stress disorder) F43.10 ; Severe episode of recurrent major depressive disorder, without 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 ; Mixed obsessional thoughts and acts F42.2 and RAQUEL (generalized anxiety disorder) F41.1 [place] [address], [place] [address] Aug, Chronic pain due to trauma G89.21 [facility] [address] [place] [address] 01796- 6105 Aug, PTSD (post-traumatic stress disorder) F43.10 ; Severe episode of recurrent major depressive disorder, without 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 ; Mixed obsessional thoughts and acts F42.2 and RAQUEL (generalized anxiety disorder) F41.1 [place] [address] [address] Aug, PTSD (post-traumatic stress disorder) F43.10 and Major depressive disorder, single episode, unspecified F32.9 [facility] [address], [place] [address] Jul, PTSD (post-traumatic stress disorder) F43.10 and Major depressive disorder, single episode, unspecified F32.9 [facility] [address], [place] [address] Jul, Chronic pain due to trauma G89.21 [place] [id number] [place] [address] 92482- 2533 Jul, PTSD (post-traumatic stress disorder) F43.10 ; Severe episode of recurrent major depressive disorder, without 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 ; RAQUEL (generalized anxiety disorder) F41.1 and Mixed obsessional thoughts and acts F42.2 [place] [address] [place] [address] 57951- 4539 Jul, PTSD (post-traumatic stress disorder) F43.10 and Major depressive disorder, single episode, unspecified F32.9 [place] [address] [place] [address] 36989- 8072 June, Chronic pain due to trauma G89.21 [place] [address] [place] [address] 96761- 7801 June, PTSD (post-traumatic stress disorder) F43.10 ; Severe episode of recurrent major depressive disorder, without 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 ; Mixed obsessional thoughts and acts F42.2 and RAQUEL (generalized anxiety disorder) F41.1 [place] [address], [place] [address] May, Chronic pain due to trauma G89.21 [place] [id number] [place] [address] 45164- 9830 May, PTSD (post-traumatic stress disorder) F43.10 [place] [address], [place] [address] May, Chronic pain due to trauma G89.21 [place] [id number] [place] [address] 12601- 7903 May, PTSD (post-traumatic stress disorder) F43.10 ; Severe episode of recurrent major depressive disorder, without 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 ; Mixed obsessional thoughts and acts F42.2 and RAQUEL (generalized anxiety disorder) F41.1 [place] [address] [address] Apr, Elevated lipids E78.5 [place] [address] [address]- [address] Apr, PTSD (post-traumatic stress disorder) F43.10 and Major depressive disorder, single episode, unspecified F32.9 [place] [address] [address]44[address]- [address] Apr, Encounter to establish care Z76.89 [place] [address] [address]30[address]- [address] Apr, Chronic pain due to trauma G89.21 [place] [address] [address]- 284[address] Apr, Encounter to establish care Z76.89 ; Chronic pain due to trauma G89.21 ; Major depressive disorder, single episode, unspecified F32.9 ; Anxiety disorder, unspecified F41.9 ; PTSD (post-traumatic stress disorder) F43.10 and Syncope, unspecified syncope type R55 [facility] [id number] [place] [address] 78149 -6097 Apr, Fever, unspecified fever cause R50.9 and Viral upper respiratory tract infection J06.[address] [address]- [address] June, IMMUNIZATIONS No Known Immunizations SOCIAL HISTORY Never Assessed REASON FOR VISIT Withdraw symptoms PLAN OF CARE VITAL SIGNS MEDICATIONS Unknown Medications RESULTS No Results PROCEDURES No Known procedures [...]
--- OUTSIDE RECORDS SUMMARY | 2018-04-21 03:48 | XMS REPORT ---
Author Author KANG WASHINGTON [facility] Address [address] [place] [address] Care Team Providers Care Campaign Assistant Name Role Phone KANG WASHINGTON Unavailable PROBLEMS Type Condition ICD9-CM Code [id number] Code Onset Dates Condition Status SNOMED Code Problem Chronic pain due to trauma G89.21 Active 511261175 Problem Major depressive disorder, single episode, unspecified F32.9 Active 61818286 Problem Anxiety disorder, unspecified F41.9 Active 297308477 Problem Other chronic pain G89.29 Active 27079517 Problem Elevated lipids E78.5 Active 577345830 Problem RAQUEL (generalized anxiety disorder) F41.1 Active 26158742 Problem PTSD (post-traumatic stress disorder) F43.10 Active 30773315 Problem Severe episode of recurrent major depressive disorder, without 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 Active 55708029 Problem Mixed obsessional thoughts and acts F42.2 Active 40639698 ALLERGIES No Information ENCOUNTERS Encounter Location Date Diagnosis [place] [id number] [place] [address] 66835- 9914 Jan, [place] [id number] [place] [address] 36099- 6146 27 Oct, 2017 PTSD (post-traumatic stress disorder) F43.10 ; Severe episode of recurrent major depressive disorder, without 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 ; Mixed obsessional thoughts and acts F42.2 and RAQUEL (generalized anxiety disorder) F41.1 [place] [id number] [place] [address] 94337- 3196 19 Oct, 2017 Chronic pain due to trauma G89.21 [facility] [place] [id number] [place] [address] 59852- 9842 Oct, Chronic pain due to trauma G89.21 [place] [address] [place] [address] 19 Oct, 2017 Chronic pain due to trauma G89.21 [facility] [place] [id number] [place] [address] 75589- 3097 13 Oct, 2017 [facility] [place] [address] [place] [address] 33822- 1295 Sep, Chronic pain due to trauma G89.21 ; Other chronic pain G89.29 and Pain in left hand M79.642 [facility] [id number] [place] [address] 80223 -1822 Sep, Shortness of breath R06.02 and Syncope, unspecified syncope type R55 [facility] [place] [id number] [place] [address] 67110- 7913 Sep, PTSD (post-traumatic stress disorder) F43.10 ; Severe episode of recurrent major depressive disorder, without 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 ; Mixed obsessional thoughts and acts F42.2 and RAQUEL (generalized anxiety disorder) F41.1 [place] [address] [place] [address] 33131- 5052 Aug, Chronic pain due to trauma G89.21 [facility] [place] [address] [place] [address] 01049- 5956 Aug, PTSD (post-traumatic stress disorder) F43.10 ; Severe episode of recurrent major depressive disorder, without 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 ; Mixed obsessional thoughts and acts F42.2 and RAQUEL (generalized anxiety disorder) F41.1 [place] [address] [place] [address] 85172- 6432 Aug, PTSD (post-traumatic stress disorder) F43.10 and Major depressive disorder, single episode, unspecified F32.9 [facility] [place] [address] [place] [address] 54628- 6593 Jul, PTSD (post-traumatic stress disorder) F43.10 and Major depressive disorder, single episode, unspecified F32.9 [place] [id number] [place] [address] 07189- 3937 Jul, Chronic pain due to trauma G89.21 [place] [id number] [place] [address] 68934- 0658 Jul, PTSD (post-traumatic stress disorder) F43.10 ; Severe episode of recurrent major depressive disorder, without 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 ; RAQUEL (generalized anxiety disorder) F41.1 and Mixed obsessional thoughts and acts F42.2 [place] [id number] [place] [address] 93431- 0482 Jul, PTSD (post-traumatic stress disorder) F43.10 and Major depressive disorder, single episode, unspecified F32.9 [place] [id number] [place] [address] 85002- 1023 June, Chronic pain due to trauma G89.21 [place] [address] 61698- 9031 June, PTSD (post-traumatic stress disorder) F43.10 ; Severe episode of recurrent major depressive disorder, without 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 ; Mixed obsessional thoughts and acts F42.2 and RAQUEL (generalized anxiety disorder) F41.1 [place] [id number] [place] [address] 92466- 3740 May, Chronic pain due to trauma G89.21 [place] [id number] [place] [address] 60749- 2169 May, PTSD (post-traumatic stress disorder) F43.10 [place] [id number] [place] [address] 58211- 9650 May, Chronic pain due to trauma G89.21 [place] [id number] [place] [address] 43722- 7171 May, PTSD (post-traumatic stress disorder) F43.10 ; Severe episode of recurrent major depressive disorder, without 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 ; Mixed obsessional thoughts and acts F42.2 and RAQUEL (generalized anxiety disorder) F41.1 [place] [address] [place] [address] 22797- 0529 Apr, Elevated lipids E78.5 [place] [id number] [place] [address] 91541- 987 Apr, PTSD (post-traumatic stress disorder) F43.10 and Major depressive disorder, single episode, unspecified F32.9 [place] [id number] [place] [address] 602622- 2276 Apr, Encounter to establish care Z76.89 [place] [id number] [place] [address] 771628- 2260 Apr, Chronic pain due to trauma G89.21 [place] [id number] [place] [address] 62499 140 Apr, Encounter to establish care Z76.89 ; Chronic pain due to trauma G89.21 ; Major depressive disorder, single episode, unspecified F32.9 ; Anxiety disorder, unspecified F41.9 ; PTSD (post-traumatic stress disorder) F43.10 and Syncope, unspecified syncope type R55 [facility] [address] [place] [place] [id number] [place] [address] 94213 -2205 Apr, Fever, unspecified fever cause R50.9 and Viral upper respiratory tract infection J06.9 [place] [id number] [place] [address] 48363- 3004 June, IMMUNIZATIONS No Known Immunizations SOCIAL HISTORY Never Assessed REASON FOR VISIT PLAN OF CARE VITAL SIGNS MEDICATIONS Medication Instructions Dosage Frequency Start Date End Date Duration Status Hydrocodone-Acetaminophen 5-325 MG Orally every 6 hours as needed for pain 1- 2 tablets as needed Sep, Active RESULTS No Results PROCEDURES No Known [...]
--- OUTSIDE RECORDS SUMMARY | 2018-04-21 03:48 | XMS REPORT ---
Author Author KANG WASHINGTON [facility] IN [facility] Address [address] [place] [address] Care Team Providers Care Family Court Justice Name Role Phone KANG WASHINGTON Unavailable PROBLEMS Type Condition ICD9-CM Code RPC29-PA Code Onset Dates Condition Status SNOMED Code Problem Chronic pain due to trauma G89.21 Active 761234825 Problem Major depressive disorder, single episode, unspecified F32.9 Active 30217092 Problem Anxiety disorder, unspecified F41.9 Active 891675277 Problem Other chronic pain G89.29 Active 82689690 Problem Elevated lipids E78.5 Active 429064486 Problem RAQUEL (generalized anxiety disorder) F41.1 Active 21284499 Problem PTSD (post-traumatic stress disorder) F43.10 Active 91583947 Problem Severe episode of recurrent major depressive disorder, without 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 Active 90145513 Problem Mixed obsessional thoughts and acts F42.2 Active 32228312 ALLERGIES No Information ENCOUNTERS Encounter Location Date Diagnosis [place] [id number] [place] [address] 33852- 6824 Jan, [place] [id number] [place] [address] 86821- 5079 27 Oct, 2017 PTSD (post-traumatic stress disorder) F43.10 ; Severe episode of recurrent major depressive disorder, without 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 ; Mixed obsessional thoughts and acts F42.2 and RAQUEL (generalized anxiety disorder) F41.1 [place] [id number] [place] [address] 12564- 4029 19 Oct, 2017 Chronic pain due to trauma G89.21 [facility] [id number] [place] [address] 71987- 1357 Oct, Chronic pain due to trauma G89.21 [place] [address] [place] [address] 5993 19 Oct, 2017 Chronic pain due to trauma G89.21 [facility] [id number] [place] [address] 77881- 8100 13 Oct, 2017 [facility] [address] [place] [address] 36737- 8389 Sep, Chronic pain due to trauma G89.21 ; Other chronic pain G89.29 and Pain in left hand M79.642 [facility] [id number] [place] [address] 79093 -6187 Sep, Shortness of breath R06.02 and Syncope, unspecified syncope type R55 [facility] [id number] [place] [address] 77378- 4123 Sep, PTSD (post-traumatic stress disorder) F43.10 ; Severe episode of recurrent major depressive disorder, without 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 ; Mixed obsessional thoughts and acts F42.2 and RAQUEL (generalized anxiety disorder) F41.1 [place] [address] [place] [address] 57729- 8716 Aug, Chronic pain due to trauma G89.21 [facility] [address] [place] [address] 90652- 8126 Aug, PTSD (post-traumatic stress disorder) F43.10 ; Severe episode of recurrent major depressive disorder, without 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 ; Mixed obsessional thoughts and acts F42.2 and RAQUEL (generalized anxiety disorder) F41.1 [place] [address] [place] [address] 65800- 8225 Aug, PTSD (post-traumatic stress disorder) F43.10 and Major depressive disorder, single episode, unspecified F32.9 [facility] [address] [place] [address] 01370- 5362 Jul, PTSD (post-traumatic stress disorder) F43.10 and Major depressive disorder, single episode, unspecified F32.9 [place] [id number] [place] [address] 33491- 9890 Jul, Chronic pain due to trauma G89.21 [place] [id number] [place] [address] 85881- 0550 Jul, PTSD (post-traumatic stress disorder) F43.10 ; Severe episode of recurrent major depressive disorder, without 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 ; RAQUEL (generalized anxiety disorder) F41.1 and Mixed obsessional thoughts and acts F42.2 [place] [id number] [place] [address] 85806- 9791 Jul, PTSD (post-traumatic stress disorder) F43.10 and Major depressive disorder, single episode, unspecified F32.9 [place] [id number] [place] [address] 31647- 6302 June, Chronic pain due to trauma G89.21 [place] [address] 76782- 5259 June, PTSD (post-traumatic stress disorder) F43.10 ; Severe episode of recurrent major depressive disorder, without 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 ; Mixed obsessional thoughts and acts F42.2 and RAQUEL (generalized anxiety disorder) F41.1 [place] [id number] [place] [address] 02661- 6781 May, Chronic pain due to trauma G89.21 [place] [id number] [place] [address] 00726- 3606 May, PTSD (post-traumatic stress disorder) F43.10 [place] [id number] [place] [address] 46714- 6836 May, Chronic pain due to trauma G89.21 [place] [id number] [place] [address] 39668- 7295 May, PTSD (post-traumatic stress disorder) F43.10 ; Severe episode of recurrent major depressive disorder, without 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 ; Mixed obsessional thoughts and acts F42.2 and RAQUEL (generalized anxiety disorder) F41.1 [place] [address] [place] [address] 90629- 0080 Apr, Elevated lipids E78.5 [place] [id number] [place] [address] 85059- 028 Apr, PTSD (post-traumatic stress disorder) F43.10 and Major depressive disorder, single episode, unspecified F32.9 [place] [id number] [place] [address] 27615- 2286 Apr, Encounter to establish care Z76.89 [place] [id number] [place] [address] 653966- 0271 Apr, Chronic pain due to trauma G89.21 [place] [id number] [place] [address] 00852 609 Apr, Encounter to establish care Z76.89 ; Chronic pain due to trauma G89.21 ; Major depressive disorder, single episode, unspecified F32.9 ; Anxiety disorder, unspecified F41.9 ; PTSD (post-traumatic stress disorder) F43.10 and Syncope, unspecified syncope type R55 [facility] [address] [place] [id number] [place] [address] 57104 -1684 Apr, Fever, unspecified fever cause R50.9 and Viral upper respiratory tract infection J06.9 [place] [id number] [place] [address] 03313- 5914 June, IMMUNIZATIONS No Known Immunizations SOCIAL HISTORY Never Assessed REASON FOR VISIT PLAN OF CARE VITAL SIGNS MEDICATIONS Medication Instructions Dosage Frequency Start Date End Date Duration Status Hydrocodone-Acetaminophen 5-325 MG Orally every 6 hours as needed for pain 1- 2 tablets as needed Sep, Nov, 28 days Active RESULTS No Results PROCEDURES [...]
--- OUTSIDE RECORDS SUMMARY | 2018-04-21 03:48 | XMS REPORT ---
Author Author FRANCISCO J DUNLAP Organization [facility] Address [address] [place] [address] Care Team Providers Care Sciences Dean Name Role Phone YASMINEJEWELL LAMBERTA Unavailable PROBLEMS Type Condition ICD9-CM Code [id number] Code Onset Dates Condition Status SNOMED Code Problem Chronic pain due to trauma G89.21 Active 056420879 Problem Major depressive disorder, single episode, unspecified F32.9 Active 19722958 Problem Anxiety disorder, unspecified F41.9 Active 665653300 Problem Other chronic pain G89.29 Active 19269681 Problem Elevated lipids E78.5 Active 586097044 Problem RAQUEL (generalized anxiety disorder) F41.1 Active 51705185 Problem PTSD (post-traumatic stress disorder) F43.10 Active 60415713 Problem Severe episode of recurrent major depressive disorder, without 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 Active 52708694 Problem Mixed obsessional thoughts and acts F42.2 Active 80541243 ALLERGIES No Information ENCOUNTERS Encounter Location Date Diagnosis [place] [id number] [place] [address] 69954- 0235 Jan, [place] [id number] [place] [address] 75861- 2826 27 Oct, 2017 PTSD (post-traumatic stress disorder) F43.10 ; Severe episode of recurrent major depressive disorder, without 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 ; Mixed obsessional thoughts and acts F42.2 and RAQUEL (generalized anxiety disorder) F41.1 [facility] [id number] [place] [address] 33179- 8063 19 Oct, 2017 Chronic pain due to trauma G89.21 [facility] [address] [place] [address] 17397- 5806 Oct, Chronic pain due to trauma G89.21 [place] [address] [place] [address] 8794 19 Oct, 2017 Chronic pain due to trauma G89.21 [facility] [id number] [place] [address] 32323- 3729 13 Oct, 2017 [facility] [address] [place] [address] 12657- 2521 Sep, Chronic pain due to trauma G89.21 ; Other chronic pain G89.29 and Pain in left hand M79.642 [facility] [id number] [place] [address] 17867 -9150 Sep, Shortness of breath R06.02 and Syncope, unspecified syncope type R55 [facility] [id number] [place] [address] 75006- 9143 Sep, PTSD (post-traumatic stress disorder) F43.10 ; Severe episode of recurrent major depressive disorder, without 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 ; Mixed obsessional thoughts and acts F42.2 and RAQUEL (generalized anxiety disorder) F41.1 [place] [address] [place] [address] 65207- 1338 Aug, Chronic pain due to trauma G89.21 [facility] [address] [place] [address] 92143- 9018 Aug, PTSD (post-traumatic stress disorder) F43.10 ; Severe episode of recurrent major depressive disorder, without 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 ; Mixed obsessional thoughts and acts F42.2 and RAQUEL (generalized anxiety disorder) F41.1 [place] [address] [place] [address] 39269- 3479 Aug, PTSD (post-traumatic stress disorder) F43.10 and Major depressive disorder, single episode, unspecified F32.9 [facility] [address] [place] [address] 15379- 8771 Jul, PTSD (post-traumatic stress disorder) F43.10 and Major depressive disorder, single episode, unspecified F32.9 [place] [id number] [place] [address] 48388- 1951 Jul, Chronic pain due to trauma G89.21 [place] [id number] [place] [address] 68031- 6038 Jul, PTSD (post-traumatic stress disorder) F43.10 ; Severe episode of recurrent major depressive disorder, without 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 ; RAQUEL (generalized anxiety disorder) F41.1 and Mixed obsessional thoughts and acts F42.2 [place] [id number] [place] [address] 77744- 0142 Jul, PTSD (post-traumatic stress disorder) F43.10 and Major depressive disorder, single episode, unspecified F32.9 [place] [id number] [place] [address] 04756- 6997 June, Chronic pain due to trauma G89.21 [place] [address] 28852- 9915 June, PTSD (post-traumatic stress disorder) F43.10 ; Severe episode of recurrent major depressive disorder, without 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 ; Mixed obsessional thoughts and acts F42.2 and RAQUEL (generalized anxiety disorder) F41.1 [place] [id number] [place] [address] 48001- 1575 May, Chronic pain due to trauma G89.21 [place] [id number] [place] [address] 12873- 9219 May, PTSD (post-traumatic stress disorder) F43.10 [place] [id number] [place] [address] 88803- 8377 May, Chronic pain due to trauma G89.21 [place] [id number] [place] [address] 24574- 9100 May, PTSD (post-traumatic stress disorder) F43.10 ; Severe episode of recurrent major depressive disorder, without 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 ; Mixed obsessional thoughts and acts F42.2 and RAQUEL (generalized anxiety disorder) F41.1 [place] [address] [place] [address] 31068- 1633 Apr, Elevated lipids E78.5 [place] [id number] [place] [address] 59965- 119 Apr, PTSD (post-traumatic stress disorder) F43.10 and Major depressive disorder, single episode, unspecified F32.9 [place] [id number] [place], [place] [address]- 1697 Apr, Encounter to establish care Z76.89 [place] [id number] [place] [address]- 1217 Apr, Chronic pain due to trauma G89.21 [place] [id number] [place] [address] 55105- 3887 Apr, Encounter to establish care Z76.89 ; Chronic pain due to trauma G89.21 ; Major depressive disorder, single episode, unspecified F32.9 ; Anxiety disorder, unspecified F41.9 ; PTSD (post-traumatic stress disorder) F43.10 and Syncope, unspecified syncope type R55 [facility] [id number] [place] [address] 64725 -5109 Apr, Fever, unspecified fever cause R50.9 and Viral upper respiratory tract infection J06.9 [place] [id number] [place] [address] 05600- 2254 June, IMMUNIZATIONS No Known Immunizations SOCIAL HISTORY Never Assessed REASON FOR VISIT f/richard Ewing RN PLAN OF CARE Activity Details Follow Up 2 Months Reason: VITAL SIGNS Height 65 in 2017-11-15 Weight 177 lbs 2017-11-15 Heart Rate 72 bpm 2017-11-15 Respiratory Rate 20 2017-11-15 BMI 29.45 kg/m2 2017-11-15 Blood pressure systolic 128 mmHg 2017-11-15 Blood pressure diastolic 70 mmHg 2017-11-15 MEDICATIONS Medication Instructions Dosage Frequency Start Date End Date Duration Status Clonazepam 1 MG Orally Once a day as needed for anxiety 1 tablet Aug, 30 days Active Amitriptyline HCl 25 MG Orally Once a day 1 tablet nightly for one week then take 2 tabs nightly 24h Oct, 30 day(s) Active Cymbalta 30 MG Orally Once a day 2 caps daily for one week then 1 cap daily for one week then stop 24h 14 days Active Cyclobenzaprine HCl 10 mg Orally twice a day 1 tablet as needed 12h Apr 30 days Active Aspirin 81 81 MG Orally Once a day 1 tablet 24h Active Motrin IB 200 MG Orally Three times a day 1 tablet with food or milk as needed 8h Active Zyrtec Allergy 10 MG Orally Once a day 1 tablet 24h Active Hydrocodone-Acetaminophen 5-325 MG Orally every 6 hours as needed for pain 1- 2 tablets as needed Oct, 28 days Active RESULTS No Results PROCEDURES [...]
--- OUTSIDE RECORDS SUMMARY | 2018-04-21 03:49 | XMS REPORT ---
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 Name Role Phone KANG WASHINGTON Unavailable PROBLEMS Type Condition ICD9-CM Code UFL88-ZI Code Onset Dates Condition Status SNOMED Code Problem Chronic pain due to trauma G89.21 Active 697511990 Problem Major depressive disorder, single episode, unspecified F32.9 Active 95485574 Problem Anxiety disorder, unspecified F41.9 Active 622174879 Problem Other chronic pain G89.29 Active 00366200 Problem Elevated lipids E78.5 Active 914737184 Problem RAQUEL (generalized anxiety disorder) F41.1 Active 50249728 Problem PTSD (post-traumatic stress disorder) F43.10 Active 34750565 Problem Severe episode of recurrent major depressive disorder, without 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 Active 58260489 Problem Mixed obsessional thoughts and acts F42.2 Active 98541230 ALLERGIES No Information ENCOUNTERS Encounter Location Date Diagnosis [place] [id number] [place] [address] 37971- 5232 Jan, [place] [id number] [place] [address] 29745- 5194 27 Oct, 2017 PTSD (post-traumatic stress disorder) F43.10 ; Severe episode of recurrent major depressive disorder, without 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 ; Mixed obsessional thoughts and acts F42.2 and RAQUEL (generalized anxiety disorder) F41.1 [place] [id number] [place] [address] 87540- 0597 19 Oct, 2017 Chronic pain due to trauma G89.21 [facility] [id number] [place] [address] 01500- 3440 Oct, Chronic pain due to trauma G89.21 [place] [address] [place] [address]- 7017 19 Oct, 2017 Chronic pain due to trauma G89.21 [facility] [id number] [place] [address] 74951- 5384 13 Oct, 2017 [facility] [address] [place] [address] 51391- 2490 Sep, Chronic pain due to trauma G89.21 ; Other chronic pain G89.29 and Pain in left hand M79.642 [facility] [id number] [place] [address] 81583 -7304 Sep, Shortness of breath R06.02 and Syncope, unspecified syncope type R55 [facility] [id number] [place] [address] 53306- 5637 Sep, PTSD (post-traumatic stress disorder) F43.10 ; Severe episode of recurrent major depressive disorder, without 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 ; Mixed obsessional thoughts and acts F42.2 and RAQUEL (generalized anxiety disorder) F41.1 [place] [address] [place] [address] 39856- 2497 Aug, Chronic pain due to trauma G89.21 [facility] [address] [place] [address] 30278- 3111 Aug, PTSD (post-traumatic stress disorder) F43.10 ; Severe episode of recurrent major depressive disorder, without 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 ; Mixed obsessional thoughts and acts F42.2 and RAQUEL (generalized anxiety disorder) F41.1 [place] [address] [place] [address] 72599- 7786 Aug, PTSD (post-traumatic stress disorder) F43.10 and Major depressive disorder, single episode, unspecified F32.9 [facility] [address] [place] [address] 50287- 2879 Jul, PTSD (post-traumatic stress disorder) F43.10 and Major depressive disorder, single episode, unspecified F32.9 [place] [id number] [place] [address] 99956- 7715 Jul, Chronic pain due to trauma G89.21 [place] [id number] [place] [address] 15558- 7023 Jul, PTSD (post-traumatic stress disorder) F43.10 ; Severe episode of recurrent major depressive disorder, without 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 ; RAQUEL (generalized anxiety disorder) F41.1 and Mixed obsessional thoughts and acts F42.2 [place] [id number] [place] [address] 23860- 3495 Jul, PTSD (post-traumatic stress disorder) F43.10 and Major depressive disorder, single episode, unspecified F32.9 [place] [id number] [place] [address] 01643- 6968 June, Chronic pain due to trauma G89.21 [place] [address] 29584- 3861 June, PTSD (post-traumatic stress disorder) F43.10 ; Severe episode of recurrent major depressive disorder, without 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 ; Mixed obsessional thoughts and acts F42.2 and RAQUEL (generalized anxiety disorder) F41.1 [place] [id number] [place] [address] 21602- 0988 May, Chronic pain due to trauma G89.21 [place] [id number] [place] [address] 92430- 2785 May, PTSD (post-traumatic stress disorder) F43.10 [place] [id number] [place] [address] 42142- 3362 May, Chronic pain due to trauma G89.21 [place] [id number] [place] [address] 59236- 6290 May, PTSD (post-traumatic stress disorder) F43.10 ; Severe episode of recurrent major depressive disorder, without 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 ; Mixed obsessional thoughts and acts F42.2 and RAQUEL (generalized anxiety disorder) F41.1 [place] [address] [place] [address] 55247- 9926 Apr, Elevated lipids E78.5 [place] [id number] [place] [address] 87662- 968 Apr, PTSD (post-traumatic stress disorder) F43.10 and Major depressive disorder, single episode, unspecified F32.9 [place] [id number] [place] [address] 438342- 1232 Apr, Encounter to establish care Z76.89 [place] [id number] [place] [address] 570903- 6530 Apr, Chronic pain due to trauma G89.21 [place] [id number] [place], [place] [address] 506 Apr, Encounter to establish care Z76.89 ; Chronic pain due to trauma G89.21 ; Major depressive disorder, single episode, unspecified F32.9 ; Anxiety disorder, unspecified F41.9 ; PTSD (post-traumatic stress disorder) F43.10 and Syncope, unspecified syncope type R55 [facility] [address] [place] [place] [id number] [place] [address] [phone] -[phone] Apr, Fever, unspecified fever cause R50.9 and Viral upper respiratory tract infection J06.9 [place] [id number] [place] [address] 90989- 3544 June, IMMUNIZATIONS No Known Immunizations SOCIAL HISTORY [...]
--- OUTSIDE RECORDS SUMMARY | 2018-04-21 03:49 | XMS REPORT ---
Author Author FRANCISCO J DUNLAP [facility] [address] Address [address] [place] [address] Care Team Providers Care Shove Up Name Role Phone YASMINEJEWELL LAMBERTA Unavailable PROBLEMS Type Condition ICD9-CM Code BLA15-YO Code Onset Dates Condition Status SNOMED Code Problem Chronic pain due to trauma G89.21 Active 973135398 Problem Major depressive disorder, single episode, unspecified F32.9 Active 08324042 Problem Anxiety disorder, unspecified F41.9 Active 474499607 Problem Other chronic pain G89.29 Active 06954658 Problem Elevated lipids E78.5 Active 159663637 Problem RAQUEL (generalized anxiety disorder) F41.1 Active 75963491 Problem PTSD (post-traumatic stress disorder) F43.10 Active 35827650 Problem Severe episode of recurrent major depressive disorder, without 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 Active 70168388 Problem Mixed obsessional thoughts and acts F42.2 Active 31675924 ALLERGIES Substance Reaction Event Type Date Status Penicillin V Potassium hives Drug Allergy Sep, Active Sulfa Drugs difficulty breathing Non Drug Allergy Sep, Active ENCOUNTERS Encounter Location Date Diagnosis [facility] [id number] [place] [address] 30572- 7890 Oct, [facility] [address] [place] [address] 45595- 3355 Oct, Chronic pain due to trauma G89.21 [facility] [address] [place] [address] 42764- 6793 Oct, Chronic pain due to trauma G89.21 [facility] [address] [place] [id number] [place] [address] 11967- 8652 Oct, Chronic pain due to trauma G89.21 [facility] [id number] [place] [address] 41807- 6393 Oct, [facility] [address] [place] [address] 66939- 8155 Sep, Chronic pain due to trauma G89.21 ; Other chronic pain G89.29 and Pain in left hand M79.642 [facility] [address] [address] Sep, Shortness of breath R06.02 and Syncope, unspecified syncope type R55 [facility] [id number] [place] [address] 78603- 5982 Sep, PTSD (post-traumatic stress disorder) F43.10 ; Severe episode of recurrent major depressive disorder, without 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 ; Mixed obsessional thoughts and acts F42.2 and RAQUEL (generalized anxiety disorder) F41.1 [place] [id number] [place] [address] 73044- 3829 Aug, Chronic pain due to trauma G89.21 [facility] [id number] [place] [address] 31625- 6019 Aug, PTSD (post-traumatic stress disorder) F43.10 ; Severe episode of recurrent major depressive disorder, without 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 ; Mixed obsessional thoughts and acts F42.2 and RAQUEL (generalized anxiety disorder) F41.1 [place] [address] [place] [address] 84633- 6476 Aug, PTSD (post-traumatic stress disorder) F43.10 and Major depressive disorder, single episode, unspecified F32.9 [facility] [id number] [place] [address] 25781- 4774 Jul, PTSD (post-traumatic stress disorder) F43.10 and Major depressive disorder, single episode, unspecified F32.9 [facility] [address] [place] [address] 98703- 4425 Jul, Chronic pain due to trauma G89.21 [facility] [id number] [place] [address] 98957- 7838 Jul, PTSD (post-traumatic stress disorder) F43.10 ; Severe episode of recurrent major depressive disorder, without 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 ; RAQUEL (generalized anxiety disorder) F41.1 and Mixed obsessional thoughts and acts F42.2 [place] [address] [address] Jul, PTSD (post-traumatic stress disorder) F43.10 and Major depressive disorder, single episode, unspecified F32.9 [place] [id number] [place] [address] 00823- 0890 June, Chronic pain due to trauma G89.21 [place] [id number] [place] [address] 01472- 1870 June, PTSD (post-traumatic stress disorder) F43.10 ; Severe episode of recurrent major depressive disorder, without 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 ; Mixed obsessional thoughts and acts F42.2 and RAQUEL (generalized anxiety disorder) F41.1 [place] [id number] [place] [address] 35095- 4962 May, Chronic pain due to trauma G89.21 [place] [id number] [place] [address] 78320- 5349 May, PTSD (post-traumatic stress disorder) F43.10 [place] [address] [place] [address] 06272- 8619 May, Chronic pain due to trauma G89.21 [place] [address] [place] [address] 63345- 2322 May, PTSD (post-traumatic stress disorder) F43.10 ; Severe episode of recurrent major depressive disorder, without 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 ; Mixed obsessional thoughts and acts F42.2 and RAQUEL (generalized anxiety disorder) F41.1 [place] [address] [place] [address] 16090- 5769 Apr, Elevated lipids E78.5 [place] [address] [place] [address] Apr, PTSD (post-traumatic stress disorder) F43.10 and Major depressive disorder, single episode, unspecified F32.9 [place] [address] [place] [address] Apr, Encounter to establish care Z76.89 [place] [id number] [place] [address] 14332- 3470 Apr, Chronic pain due to trauma G89.21 [place] [id number] [place] [address] 03767- 7511 Apr, Encounter to establish care Z76.89 ; Chronic pain due to trauma G89.21 ; Major depressive disorder, single episode, unspecified F32.9 ; Anxiety disorder, unspecified F41.9 ; PTSD (post-traumatic stress disorder) F43.10 and Syncope, unspecified syncope type R55 [facility] [address] [place] [address] 14105 -6163 Apr, Fever, unspecified fever cause R50.9 and Viral upper respiratory tract infection J06.9 [place] [id number] [place] [address] 10080- 2397 June, IMMUNIZATIONS No Known Immunizations SOCIAL HISTORY Never Assessed REASON FOR VISIT f/u BRADLEY Murillo PLAN OF CARE Activity Details Follow Up 6 Weeks Reason: VITAL SIGNS Height 65 in 2017-10-11 Weight 173.5 lbs 2017-10-11 Heart Rate 72 bpm 2017-10-11 Respiratory Rate 18 2017-10-11 BMI 28.87 kg/m2 2017-10-11 Blood pressure systolic 124 mmHg 2017-10-11 Blood pressure diastolic 76 mmHg 2017-10-11 MEDICATIONS Medication Instructions Dosage Frequency Start Date End Date Duration Status Motrin IB 200 MG Orally Three times a day 1 tablet with food or milk as needed 8h Active Cymbalta 30 MG Orally Once a day 3 capsule 24h 30 days Active Zyrtec Allergy 10 MG Orally Once a day 1 tablet 24h Active Cyclobenzaprine HCl 10 mg Orally twice a day 1 tablet as needed 12h Apr 30 days Active Clonazepam 1 MG Orally Once a day as needed for anxiety 0.25-0.5 tabs Aug, 30 days Active Trazodone HCl 100 MG Orally Once a day 1-2 tab at night for sleep as needed 24h May, 30 days Active Aspirin 81 81 MG [...]
--- OUTSIDE RECORDS SUMMARY | 2018-04-21 03:49 | XMS REPORT ---
Author Author KANG WASHINGTON [facility] Address [address] [place] [address] Care Team Providers Care Screw Remover Name Role Phone KANG WASHINGTON Unavailable PROBLEMS Type Condition ICD9-CM Code RSR21-ER Code Onset Dates Condition Status SNOMED Code Problem Chronic pain due to trauma G89.21 Active 208453892 Problem Major depressive disorder, single episode, unspecified F32.9 Active 87737343 Problem Anxiety disorder, unspecified F41.9 Active 044313459 Problem Other chronic pain G89.29 Active 73531307 Problem Elevated lipids E78.5 Active 314445792 Problem RAQUEL (generalized anxiety disorder) F41.1 Active 74796941 Problem PTSD (post-traumatic stress disorder) F43.10 Active 02866056 Problem Severe episode of recurrent major depressive disorder, without 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 Active 41531207 Problem Mixed obsessional thoughts and acts F42.2 Active 34038838 ALLERGIES Substance Reaction Event Type Date Status Penicillin V Potassium hives Drug Allergy Sep, Active Sulfa Drugs difficulty breathing Non Drug Allergy Sep, Active ENCOUNTERS Encounter Location Date Diagnosis [place] [id number] [place] [address] 67117- 0782 Oct, [facility] [id number] [place] [address] 72386- 3130 Oct, Chronic pain due to trauma G89.21 [facility] [id number] [place] [address] 56196- 1645 Oct, Chronic pain due to trauma G89.21 [facility] [id number] [place] [address] 46984- 2563 Oct, Chronic pain due to trauma G89.21 [facility] [id number] [place] [address] 41967- 7501 Oct, [facility] [address] [place] [address] 92333- 3448 Sep, Chronic pain due to trauma G89.21 ; Other chronic pain G89.29 and Pain in left hand M79.642 [facility] [address], [place] [address] Sep, Shortness of breath R06.02 and Syncope, unspecified syncope type R55 [facility] [id number] [place] [address] 15764- 3892 Sep, PTSD (post-traumatic stress disorder) F43.10 ; Severe episode of recurrent major depressive disorder, without 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 ; Mixed obsessional thoughts and acts F42.2 and RAQUEL (generalized anxiety disorder) F41.1 [place] [id number] [place] [address] 58113- 0021 Aug, Chronic pain due to trauma G89.21 [facility] [id number] [place] [address] 79035- 7235 Aug, PTSD (post-traumatic stress disorder) F43.10 ; Severe episode of recurrent major depressive disorder, without 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 ; Mixed obsessional thoughts and acts F42.2 and RAQUEL (generalized anxiety disorder) F41.1 [place] [address] [place] [address] 15840- 2690 Aug, PTSD (post-traumatic stress disorder) F43.10 and Major depressive disorder, single episode, unspecified F32.9 [facility] [id number] [place] [address] 69532- 4248 Jul, PTSD (post-traumatic stress disorder) F43.10 and Major depressive disorder, single episode, unspecified F32.9 [facility] [address] [place] [address] 24126- 8981 Jul, Chronic pain due to trauma G89.21 [facility] [id number] [place] [address] 59170- 7671 Jul, PTSD (post-traumatic stress disorder) F43.10 ; Severe episode of recurrent major depressive disorder, without 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 ; RAQUEL (generalized anxiety disorder) F41.1 and Mixed obsessional thoughts and acts F42.2 [place] [address], [place] [address]- 2880 Jul, PTSD (post-traumatic stress disorder) F43.10 and Major depressive disorder, single episode, unspecified F32.9 [place] [id number] [place] [address] 64362- 6916 June, Chronic pain due to trauma G89.21 [place] [address] [id number] [place] [address] 49337- 0226 June, PTSD (post-traumatic stress disorder) F43.10 ; Severe episode of recurrent major depressive disorder, without 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 ; Mixed obsessional thoughts and acts F42.2 and RAQUEL (generalized anxiety disorder) F41.1 [place] [id number] [place] [address] 90484- 7387 May, Chronic pain due to trauma G89.21 [place] [address] [id number] [place] [address] 92991- 4512 May, PTSD (post-traumatic stress disorder) F43.10 [place] [address] [place] [address] 85921- 3747 May, Chronic pain due to trauma G89.21 [place] [address] [place] [address] 42896- 7853 May, PTSD (post-traumatic stress disorder) F43.10 ; Severe episode of recurrent major depressive disorder, without 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 ; Mixed obsessional thoughts and acts F42.2 and RAQUEL (generalized anxiety disorder) F41.1 [place] [address] [place] [address] 57099- 6070 Apr, Elevated lipids E78.5 [place] [address] [place] [address]- 4573 Apr, PTSD (post-traumatic stress disorder) F43.10 and Major depressive disorder, single episode, unspecified F32.9 [facility] [address] [place] [address]- 1806 Apr, Encounter to establish care Z76.89 [place] [id number] [place] [address] 765974- 5794 Apr, Chronic pain due to trauma G89.21 [place] [address] [id number] [place] [address] 44733- 5897 Apr, Encounter to establish care Z76.89 ; Chronic pain due to trauma G89.21 ; Major depressive disorder, single episode, unspecified F32.9 ; Anxiety disorder, unspecified F41.9 ; PTSD (post-traumatic stress disorder) F43.10 and Syncope, unspecified syncope type R55 [facility] [address] [place] [address] 09392 -6867 Apr, Fever, unspecified fever cause R50.9 and Viral upper respiratory tract infection J06.9 [place] [address] [id number] [place] [address] 14385- 4109 June, IMMUNIZATIONS No Known Immunizations SOCIAL HISTORY Never Assessed REASON FOR VISIT Shortness of breath, clammy, pale, weakness and trembling that started just a few minutes prior to arrival here. The patient and her were shopping at [employer] when this started. The patient also feels like she is going to pass out.--BRADLEY Hampton PLAN OF CARE Activity Details Follow Up w/ Dr. Samuel, [place] Reason:near syncopal episode VITAL SIGNS Height 65 in 2017-10-12 Weight 169 lbs 2017-10-12 Temperature 97.9 degrees Fahrenheit 2017-10-12 Heart Rate 76 bpm 2017-10-12 Respiratory Rate 2017-10-12 Oximetry 99 % 2017-10-12 BMI 28.12 kg/m2 2017-10-12 Blood pressure systolic 148 mmHg 2017-10-12 Blood pressure diastolic 82 mmHg 2017-10-12 MEDICATIONS Medication Instructions Dosage Frequency Start Date End Date Duration Status Cymbalta 30 MG Orally Once a day 3 capsule 24h 30 days Active Trazodone HCl 100 MG Orally Once a day 1-2 tab at night for sleep as needed 24h May, 30 days Active Clonazepam 1 MG Orally Once a day as needed for anxiety 0.25-0.5 tabs Aug, 30 days Active Zyrtec Allergy 10 MG [...] tablets as needed Sep, 28 days Active Motrin IB 200 MG Orally Three times a day 1 tablet with food or milk as needed 8h Active RESULTS No Results PROCEDURES Procedure Date Ordered Result Body Site EKG, TRACING (IN-HOUSE) 2017-10-12 normal INSTRUCTIONS MEDICATIONS ADMINISTERED No Known Medications MEDICAL [...]
--- OUTSIDE RECORDS SUMMARY | 2018-04-21 03:49 | XMS REPORT ---
Author Author KANG WASHINGTON [facility] Address [address] [place] [address] Care Team Providers Care Pullboat Engineer Name Role Phone KANG WASHINGTON Unavailable PROBLEMS Type Condition ICD9-CM Code BZS61-CZ Code Onset Dates Condition Status SNOMED Code Problem Chronic pain due to trauma G89.21 Active 491277163 Problem Major depressive disorder, single episode, unspecified F32.9 Active 15592826 Problem Anxiety disorder, unspecified F41.9 Active 462294591 Problem Other chronic pain G89.29 Active 11432935 Problem Elevated lipids E78.5 Active 001105695 Problem RAQUEL (generalized anxiety disorder) F41.1 Active 10436872 Problem PTSD (post-traumatic stress disorder) F43.10 Active 81030014 Problem Severe episode of recurrent major depressive disorder, without 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 Active 30109722 Problem Mixed obsessional thoughts and acts F42.2 Active 76912526 ALLERGIES Substance Reaction Event Type Date Status Penicillin V Potassium hives Drug Allergy Sep, Active Sulfa Drugs difficulty breathing Non Drug Allergy Sep, Active ENCOUNTERS Encounter Location Date Diagnosis [place] [address] [place] [address] 16991- 3485 Oct, [facility] [id number] [place] [address] 82206- 8246 Oct, Chronic pain due to trauma G89.21 [facility] [id number] [place] [address] 57912- 6756 Oct, Chronic pain due to trauma G89.21 [facility] [id number] [place] [address] 12351- 4635 Oct, Chronic pain due to trauma G89.21 [facility] [id number] [place] [address] 85062- 2262 Oct, [facility] [address] [place] [address] 18119- 6721 Sep, Chronic pain due to trauma G89.21 ; Other chronic pain G89.29 and Pain in left hand M79.642 [facility] [address], [place] [address] Sep, Shortness of breath R06.02 and Syncope, unspecified syncope type R55 [facility] [id number] [place] [address] 58430- 7139 Sep, PTSD (post-traumatic stress disorder) F43.10 ; Severe episode of recurrent major depressive disorder, without 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 ; Mixed obsessional thoughts and acts F42.2 and RAQUEL (generalized anxiety disorder) F41.1 [place] [id number] [place] [address] 72899- 6771 Aug, Chronic pain due to trauma G89.21 [facility] [id number] [place] [address] 88198- 9945 Aug, PTSD (post-traumatic stress disorder) F43.10 ; Severe episode of recurrent major depressive disorder, without 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 ; Mixed obsessional thoughts and acts F42.2 and RAQUEL (generalized anxiety disorder) F41.1 [place] [address] [place] [address] 58574- 3381 Aug, PTSD (post-traumatic stress disorder) F43.10 and Major depressive disorder, single episode, unspecified F32.9 [facility] [id number] [place] [address] 01291- 5940 Jul, PTSD (post-traumatic stress disorder) F43.10 and Major depressive disorder, single episode, unspecified F32.9 [facility] [address] [place] [address] 19971- 4904 Jul, Chronic pain due to trauma G89.21 [facility] [id number] [place] [address] 68355- 0377 Jul, PTSD (post-traumatic stress disorder) F43.10 ; Severe episode of recurrent major depressive disorder, without 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 ; RAQUEL (generalized anxiety disorder) F41.1 and Mixed obsessional thoughts and acts F42.2 [place] [address] [address]- 5602 Jul, PTSD (post-traumatic stress disorder) F43.10 and Major depressive disorder, single episode, unspecified F32.9 [place] [id number] [place] [address] 61350- 1506 June, Chronic pain due to trauma G89.21 [place] [address] [id number] [place] [address] 53279- 1605 June, PTSD (post-traumatic stress disorder) F43.10 ; Severe episode of recurrent major depressive disorder, without 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 ; Mixed obsessional thoughts and acts F42.2 and RAQUEL (generalized anxiety disorder) F41.1 [place] [id number] [place] [address] 35855- 8870 May, Chronic pain due to trauma G89.21 [place] [address] [id number] [place] [address] 54675- 8287 May, PTSD (post-traumatic stress disorder) F43.10 [place] [address] [place] [address] 72295- 8000 May, Chronic pain due to trauma G89.21 [place] [address] [place] [address] 05382- 4395 May, PTSD (post-traumatic stress disorder) F43.10 ; Severe episode of recurrent major depressive disorder, without 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 ; Mixed obsessional thoughts and acts F42.2 and RAQUEL (generalized anxiety disorder) F41.1 [place] [address] [place] [address] 36770- 8378 Apr, Elevated lipids E78.5 [place] [address] [place] [address]- 8637 Apr, PTSD (post-traumatic stress disorder) F43.10 and Major depressive disorder, single episode, unspecified F32.9 [place] [address] [place] [address]- 6933 Apr, Encounter to establish care Z76.89 [place] [address] [id number] [place] [address] 61141- 2785 Apr, Chronic pain due to trauma G89.21 [place] [address] [id number] [place] [address] 38403- 9808 Apr, Encounter to establish care Z76.89 ; Chronic pain due to trauma G89.21 ; Major depressive disorder, single episode, unspecified F32.9 ; Anxiety disorder, unspecified F41.9 ; PTSD (post-traumatic stress disorder) F43.10 and Syncope, unspecified syncope type R55 [facility] [address] [place] [address] 20835 -4599 Apr, Fever, unspecified fever cause R50.9 and Viral upper respiratory tract infection J06.9 [place] [address] [id number] [place] [address] 74617- 7911 June, IMMUNIZATIONS No Known Immunizations SOCIAL HISTORY Never Assessed REASON FOR VISIT Pain management (chronic). Pt would like provider to assess left hand. Pt c/o that her arthritis is flaring up where she injured her hand 3 years ago.-[facility] PLAN OF CARE Activity Details Follow Up pending xray results Reason:left hand pain VITAL SIGNS Height 65 in 2017-10-17 Weight 173.6 lbs 2017-10-17 Temperature 98.7 degrees Fahrenheit 2017-10-17 Heart Rate 68 bpm 2017-10-17 Respiratory Rate 20 2017-10-17 BMI 28.89 kg/m2 2017-10-17 Blood pressure systolic 112 mmHg 2017-10-17 Blood pressure diastolic 72 mmHg 2017-10-17 MEDICATIONS Medication Instructions Dosage Frequency Start Date End Date Duration Status Zyrtec Allergy 10 MG Orally Once a day 1 tablet 24h Active Motrin IB 200 MG Orally Three times a day 1 tablet with food or milk as needed 8h Active Cymbalta 30 MG Orally Once a day 3 capsule 24h 30 days Active Hydrocodone-Acetaminophen 5-325 MG Orally every 6 hours as needed for pain 1- 2 tablets as needed Sep, Active Clonazepam 1 MG Orally Once a day as needed for anxiety 0.25-0.5 tabs 10 Aug, 2017 30 days Active Trazodone HCl 100 MG Orally Once a day 1-2 tab at night for sleep as needed 24h 16 May, 2017 30 days Active Cyclobenzaprine HCl 10 mg Orally twice a day 1 tablet as needed 12h 23 Apr 30 days Active Aspirin 81 81 MG Orally Once a day 1 tablet 24h Active RESULTS No Results PROCEDURES Procedure Date Ordered Result Body Site X-RAY EXAM OF HAND Oct 17, 2017 DRUG TEST PRSMV CHEM ANLYZR Oct 17, 2017 INSTRUCTIONS MEDICATIONS ADMINISTERED No Known Medications [...]
--- OUTSIDE RECORDS SUMMARY | 2018-04-21 03:49 | XMS REPORT ---
Author Author KANG WASHINGTON [facility] Address [address] [place] [address] Care Team Providers Care Nut Sifter Name Role Phone KANG WASHINGTON Unavailable PROBLEMS Type Condition ICD9-CM Code JUX76-RP Code Onset Dates Condition Status SNOMED Code Problem Chronic pain due to trauma G89.21 Active 135029308 Problem Major depressive disorder, single episode, unspecified F32.9 Active 98532650 Problem Anxiety disorder, unspecified F41.9 Active 893756230 Problem Other chronic pain G89.29 Active 32617952 Problem Elevated lipids E78.5 Active 329453945 Problem RAQUEL (generalized anxiety disorder) F41.1 Active 55734403 Problem PTSD (post-traumatic stress disorder) F43.10 Active 95011333 Problem Severe episode of recurrent major depressive disorder, without 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 Active 76411180 Problem Mixed obsessional thoughts and acts F42.2 Active 43559341 ALLERGIES No Information ENCOUNTERS Encounter Location Date Diagnosis [facility] [id number] [place] [phone] Jan, [facility] [id number] [place] [address] 53761- 6198 27 Oct, 2017 PTSD (post-traumatic stress disorder) F43.10 ; Severe episode of recurrent major depressive disorder, without 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 ; Mixed obsessional thoughts and acts F42.2 and RAQUEL (generalized anxiety disorder) F41.1 [place] [facility] [id number] [place] [address] 66998- 9829 19 Oct, 2017 Chronic pain due to trauma G89.21 [facility] [id number] [place] [address] 45381- 0982 Oct, Chronic pain due to trauma G89.21 [place] [address] [place] [address] 19 Oct, 2017 Chronic pain due to trauma G89.21 [facility] [id number] [place] [address] 28585- 2245 13 Oct, 2017 [facility] [address] [place] [address] 67567- 2066 Sep, Chronic pain due to trauma G89.21 ; Other chronic pain G89.29 and Pain in left hand M79.642 [facility] [id number] [place] [address] 27598 -[phone] Sep, Shortness of breath R06.02 and Syncope, unspecified syncope type R55 [facility] [id number] [place] [address] 38683- 5720 Sep, PTSD (post-traumatic stress disorder) F43.10 ; Severe episode of recurrent major depressive disorder, without 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 ; Mixed obsessional thoughts and acts F42.2 and RAQUEL (generalized anxiety disorder) F41.1 [place] [address] [place] [address] 35850- 6441 Aug, Chronic pain due to trauma G89.21 [facility] [address] [place] [address] 22915- 4285 Aug, PTSD (post-traumatic stress disorder) F43.10 ; Severe episode of recurrent major depressive disorder, without 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 ; Mixed obsessional thoughts and acts F42.2 and RAQUEL (generalized anxiety disorder) F41.1 [place] [address] [place] [address] 45662- 7214 Aug, PTSD (post-traumatic stress disorder) F43.10 and Major depressive disorder, single episode, unspecified F32.9 [facility] [address] [place] [address] 54446- 6921 Jul, PTSD (post-traumatic stress disorder) F43.10 and Major depressive disorder, single episode, unspecified F32.9 [place] [id number] [place] [address] 94057- 7374 Jul, Chronic pain due to trauma G89.21 [place] [id number] [place] [address] 03009- 3109 Jul, PTSD (post-traumatic stress disorder) F43.10 ; Severe episode of recurrent major depressive disorder, without 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 ; RAQUEL (generalized anxiety disorder) F41.1 and Mixed obsessional thoughts and acts F42.2 [place] [id number] [place] [address] 42014- 6407 Jul, PTSD (post-traumatic stress disorder) F43.10 and Major depressive disorder, single episode, unspecified F32.9 [place] [id number] [place] [address] 03549- 3232 June, Chronic pain due to trauma G89.21 [place] [address] [address]- [address] June, PTSD (post-traumatic stress disorder) F43.10 ; Severe episode of recurrent major depressive disorder, without 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 ; Mixed obsessional thoughts and acts F42.2 and RAQUEL (generalized anxiety disorder) F41.1 [place] [id number] [place] [address] 75693- 1529 May, Chronic pain due to trauma G89.21 [place] [id number] [place] [address] 17764- 3015 May, PTSD (post-traumatic stress disorder) F43.10 [place] [id number] [place] [address] 87578- 1610 May, Chronic pain due to trauma G89.21 [place] [id number] [place] [address] 09579- 2855 May, PTSD (post-traumatic stress disorder) F43.10 ; Severe episode of recurrent major depressive disorder, without 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 ; Mixed obsessional thoughts and acts F42.2 and RAQUEL (generalized anxiety disorder) F41.1 [place] [address] [place] [address] 93591- 1877 Apr, Elevated lipids E78.5 [place] [id number] [place], [place] [phone] Apr, PTSD (post-traumatic stress disorder) F43.10 and Major depressive disorder, single episode, unspecified F32.9 [place] [id number] [place], [place] [address] Apr, Encounter to establish care Z76.89 [place] [id number] [place] [address] Apr, Chronic pain due to trauma G89.21 [place] [id number] [place] [address] 745 Apr, Encounter to establish care Z76.89 ; Chronic pain due to trauma G89.21 ; Major depressive disorder, single episode, unspecified F32.9 ; Anxiety disorder, unspecified F41.9 ; PTSD (post-traumatic stress disorder) F43.10 and Syncope, unspecified syncope type R55 [facility] [address] [place], [place] [id number] [place] [address] [phone] -[phone] Apr, Fever, unspecified fever cause R50.9 and Viral upper respiratory tract infection J06.9 [place] [id number] [place] [address] 37243- 8769 June, IMMUNIZATIONS No Known Immunizations SOCIAL HISTORY Never Assessed REASON FOR VISIT x-ray results PLAN OF CARE VITAL SIGNS MEDICATIONS Unknown [...]
== END 2018-04-18 21:31 | disposition home or self-care (01) ==
LOC: EDUNIT# 19:55 → ER 19:58
DX: R50.9 Fever, unspecified (principal); R52 Pain, unspecified; R09.81 Nasal congestion; I10 Essential (primary) hypertension; Z88.0 Allergy status to penicillin; Z88.2 Allergy status to sulfonamides; Z79.82 Long term (current) use of aspirin; Z98.1 Arthrodesis status; Z90.710 Acquired absence of both cervix and uterus
CPT/HCPCS: 87804

== ENCOUNTER → 2018-06-28 | Outpatient (CLI) | payer OTHER ==
--- NOTE | 2018-06-28 10:49 | Diagnostic Imaging Report ---
Indication: Routine screening. No prior mammograms are available for comparison. This a baseline study. 2-D and 3-D bilateral screening mammography was performed CAD Both breasts are heterogeneously dense, limiting the sensitivity of mammography. Cardiac monitoring device in the medial aspect of the left breast is noted. No dominant mass or malignant appearing microcalcifications are seen. There are benign calcifications bilaterally. Axilla are unremarkable. Impression: BI-RADS category 2 No mammographic features suspicious for malignancy are identified. ACR BI-RADS Category 2: Benign findings. Result letter will be mailed to the patient. Note: At least 10% of breast cancer is not imaged by mammography. Dictated by: Dictated on workstation # [id number]
== END ==
LOC: RAD 08:07
PROVIDERS: ATTEND Obstetrics & Gynecology
DX: Z12.31 Encounter for screening mammogram for malignant neoplasm of breast (principal); Z01.419 Encounter for gynecological examination (general) (routine) without abnormal findings
CPT/HCPCS: 77067

== ENCOUNTER 2018-07-22 21:21 | Emergency (ER) | payer OTHER ==
[~2018-07-22] VITALS: Ht 165.1 cm; Wt 80.7 kg
[2018-07-22] MEDS ORDERED: NS IV 1000 ML 1,000 ML IV ONE (21:35)
[2018-07-22 21:43] LABS: BASOPHILS % (AUTO) 0 % (0-10); EOSINOPHILS # (AUTO) 0.1 10^3/uL (0.0-0.3); EOSINOPHILS % (AUTO) 1 % (0-10); HEMATOCRIT 41 % (35-52); HEMOGLOBIN 13.7 G/DL (11.5-16.0); LYMPHOCYTES # (AUTO) 2.6 X 10^3 (1.0-4.0); LYMPHOCYTES % (AUTO) 30 % (12-44); MEAN CORPUSCULAR HEMOGLOBIN 31 PG (25-34); MEAN CORPUSCULAR HGB CONC 33 G/DL (32-36); MEAN CORPUSCULAR VOLUME 93 FL (80-99); MONOCYTES # (AUTO) 0.8 X 10^3 (0.0-1.0); MONOCYTES % (AUTO) 9 % (0-12); NEUTROPHILS # (AUTO) 5.3 X 10^3 (1.8-7.8); NEUTROPHILS % (AUTO) 60 % (42-75); PLATELET COUNT 332 10^3/uL (130-400); RED CELL DISTRIBUTION WIDTH 14.7 % (10.0-14.5); WHITE BLOOD COUNT 8.9 10^3/uL (4.3-11.0)
[2018-07-22 22:00] LABS: ALANINE AMINOTRANSFERASE 29 U/L (0-55); ALBUMIN 4.1 GM/DL (3.2-4.5); ALKALINE PHOSPHATASE 60 U/L (40-136); BILIRUBIN,TOTAL 0.2 MG/DL (0.1-1.0); BUN/CREATININE RATIO 23; CALCIUM 9.2 MG/DL (8.5-10.1); CARBON DIOXIDE 24 MMOL/L (21-32); CHLORIDE 108 MMOL/L (98-107); CREATININE SERUM 0.84 MG/DL (0.60-1.30); GFR ESTIMATED > 60; GLUCOSE 118 MG/DL (70-105); MAGNESIUM 2.9 MG/DL (1.8-2.4); POTASSIUM 3.4 MMOL/L (3.6-5.0); SODIUM 143 MMOL/L (135-145); TOTAL PROTEIN 6.6 GM/DL (6.4-8.2)
--- NOTE | 2018-07-22 22:02 | ED Neurological Problem ---
General Chief Complaint: Neurological Problems Stated Complaint: SEIZURE Nursing Triage Note: PT BROUGHT IN BY EMS FOR POSSIBLE SEIZURE. PT ALERT/ORIENTED ON ARRIVAL. Nursing Sepsis Screen: No Definite Risk Source: patient Exam Limitations: no limitations History of Present Illness Date Seen by Provider: Jul 22, 2018 Time Seen by Provider: 21:31 Initial Comments Here by EMS with report of possible seizure at home. Reportedly shaking and post ictal by EMS but improved over time. Patient reports that she's been having 2 or 3 of these episodes over weak. She has appointment with neurology tomorrow with Dr. Marie at [facility]. She is not currently on any antiseizure medication but is on Klonopin. Does have history of PTSD and takes medications related to that. Patient complains of mild headache and neck is hurting a little. She does have history of neck fusion as well as multiple other orthopedic repairs. Denies nausea or vomiting. Denies chest pain. Timing/Duration: episodic, other Severity: moderate Associated Symptoms: confusion; No nausea/vomiting; seizures; No weakness Allergies and Home Medications Allergies Coded Allergies: Penicillins (Verified Allergy, Unknown, 04/28/17) Sulfa (Sulfonamide Antibiotics) (Verified Allergy, Unknown, 04/28/17) Home Medications Aspirin 81 Mg Tablet.dr, 81 MG PO DAILY Prescribed by: DAOY ZHOU on 04/30/17 1534 Hydroxyzine Pamoate 25 Mg Capsule, 25 MG PO Q4H PRN for ANXIETY Prescribed by: TASNEEM YOUNG on 10/12/17 1810 Patient Home Medication List Home Medication List Reviewed: Yes Review of Systems Review of Systems Constitutional: see HPI; No chills, No fever Eyes: No Symptoms Reported Ears, Nose, Mouth, Throat: no symptoms reported Respiratory: no symptoms reported Cardiovascular: no symptoms reported Gastrointestinal: no symptoms reported Musculoskeletal: see HPI, muscle pain, neck pain Psychiatric/Neurological: Headache; Denies Weakness All Other Systems Reviewed Negative Unless Noted: Yes Past Wvdbhdt-Bodlvl-Lwpvsa Hx Past Med/Social Hx: Reviewed Nursing Past Med/Soc Hx Patient Social History Alcohol Use: Denies Use Recreational Drug Use: No Smoking Status: Current Everyday Smoker Type Used: Cigarettes Former Smoker, Quit: Dec 20, 2013 2nd Hand Smoke Exposure: No Recent Foreign Travel: No Contact w/Someone Who Travel: No Recent Infectious Disease Expo: No Recent Hopitalizations: No Immunizations Up To Date Tetanus Booster (TDap): Less than 5yrs Seasonal Allergies Seasonal Allergies: No Past Medical History Surgeries: Yes (R/L KNEE: L5-S1 FUSION: LOOP RECORDER ) Hysterectomy, Orthopedic Respiratory: No Cardiac: Yes (LOOP RECORDER IN PLACE FOR SYNCOPE) Hypertension, Syncope Neurological: No Female Reproductive Disorders: Denies SAW[employer]ER [employer] SLABS History: Hysterectomy, Menopausal Genitourinary: No Gastrointestinal: No Musculoskeletal: Yes (CHRONIC NECK AND BACK PAIN ) Degenerate Disk Disease, Chronic Back Pain Endocrine: No HEENT: No Cancer: No Psychosocial: No Integumentary: No Blood Disorders: No Family Medical History Reviewed Nursing Family Hx No Pertinent Family Hx Physical Exam Vital Signs Vital Signs - First Documented 07/22/18 21:33 Temp 97.9 Pulse 80 Resp 20 B/P (MAP) 135/83 (100) Pulse Ox 97 O2 Delivery Room Air Capillary Refill : Less Than 3 Seconds Height, Weight, BMI Height: 5'5.00" Weight: 178lbs. 0.0oz. 80.271328tj; 30.8 BMI Method:Stated General Appearance: WD/WN, no apparent distress HEENT: PERRL/EOMI, pharynx normal Neck: full range of motion, supple Respiratory: lungs clear, normal breath sounds, no respiratory distress, no accessory muscle use Cardiovascular: regular rate, rhythm, no murmur Peripheral Pulses: 2+ Dorsalis Pedis (R), 2+ Left Dors-Pedis (L), 2+ Radial Pulses (R), 2+ Radial Pulses (L) Gastrointestinal: non tender, soft Back: normal inspection, no CVA tenderness, no vertebral tenderness Extremities: non-tender, normal inspection Neurologic/Psychiatric: alert, oriented x 3 Crainal Nerves: normal hearing, normal speech, PERRL Motor/Sensory: no motor deficit, no sensory deficit Skin: normal color, warm/dry Progress/Results/Core Measures Results/Orders Lab Results Laboratory Tests Test 07/22/18 21:25 Range/Units White Blood Count 8.9 4.3-11.0 10^3/uL Red Blood Count 4.42 4.35-5.85 10^6/uL Hemoglobin 13.7 11.5-16.0 G/DL Hematocrit 41 35-52 % Mean Corpuscular Volume 93 80-99 FL Mean Corpuscular Hemoglobin 31 25-34 PG Mean Corpuscular Hemoglobin Concent 33 32-36 G/DL Red Cell Distribution Width 14.7 H 10.0-14.5 % Platelet Count 332 130-400 10^3/uL Mean Platelet Volume 9.0 7.4-10.4 FL Neutrophils (%) (Auto) 60 42-75 % Lymphocytes (%) (Auto) 30 12-44 % Monocytes (%) (Auto) 9 0-12 % Eosinophils (%) (Auto) 1 0-10 % Basophils (%) (Auto) 0 0-10 % Neutrophils # (Auto) 5.3 1.8-7.8 X 10^3 Lymphocytes # (Auto) 2.6 1.0-4.0 X 10^3 Monocytes # (Auto) 0.8 0.0-1.0 X 10^3 Eosinophils # (Auto) 0.1 0.0-0.3 10^3/uL Basophils # (Auto) 0.0 0.0-0.1 10^3/uL Sodium Level 143 135-145 MMOL/L Potassium Level 3.4 L 3.6-5.0 MMOL/L Chloride Level 108 H 98-107 MMOL/L Carbon Dioxide Level 24 21-32 MMOL/L Anion Gap 11 5-14 MMOL/L Blood Urea Nitrogen 19 H 7-18 MG/DL Creatinine 0.84 0.60-1.30 MG/DL Estimat Glomerular Filtration Rate > 60 BUN/Creatinine Ratio 23 Glucose Level 118 H 70-105 MG/DL Calcium Level 9.2 8.5-10.1 MG/DL Corrected Calcium 9.1 8.5-10.1 MG/DL Magnesium Level 2.9 H 1.8-2.4 MG/DL Total Bilirubin 0.2 0.1-1.0 MG/DL Aspartate Amino Transf (AST/SGOT) 22 5-34 U/L Alanine Aminotransferase (ALT/SGPT) 29 0-55 U/L Alkaline Phosphatase 60 40-136 U/L Total Protein 6.6 6.4-8.2 GM/DL Albumin 4.1 3.2-4.5 GM/DL Thyroid Stimulating Hormone (TSH) 1.50 0.35-4.94 UIU/ML My Orders Orders - LUCIA COLLINS MD Ct Head/Cervical Spine Wo (07/22/18 21:35) Cbc With Automated Diff (07/22/18 21:35) Comprehensive Metabolic Panel (07/22/18 21:35) Magnesium (07/22/18 21:35) Thyroid Stimulating Hormone (07/22/18 21:35) Ns Iv 1000 Ml (Sodium Chloride 0.9%) (07/22/18 21:35) Medications Given in ED Current Medications Medications Dose Ordered Sig/Ericka Route Start Time Stop Time Status Last Admin Dose Admin Sodium Chloride 1,000 ml @ 0 mls/hr Q0M ONCE IV 07/22/18 21:35 07/22/18 21:39 DC 07/22/18 21:42 999 MLS/HR Vital Signs/I&O 07/22/18 21:33 Temp 97.9 Pulse 80 Resp 20 B/P (MAP) 135/83 (100) Pulse Ox 97 O2 Delivery Room Air Blood Pressure Mean: 100 Progress Progress Note : Progress Note Seen and evaluated. IV by EMS, normal saline 1 L bolus, labs, UA and CT head and neck ordered. Monitor patient. 03/24/01: No repeat seizure. Overall feels better. Does have appointment with neurology tomorrow. At this point will discharge her home and she will continue home meds. She has Klonopin she will take that tonight. Discharged home with return precautions. Patient verbalize understanding instructions and agreement with plan. Diagnostic Imaging Diagonstic Imaging: CT Plain Films/CT/US/NM/MRI: c-spine, head Comments [facility]. [place], [place] NAME: TOBIAS OG [facility] REC#: [id number] PT STATUS: REG ER : 1970 PHYSICIAN: LUCIA COLLINS MD ADMIT DATE: 07/22/18/ER Draft Date of Exam:07/22/18 CT HEAD/CERVICAL SPINE WO PROCEDURE: CT head and CT cervical spine without contrast. TECHNIQUE: Multiple contiguous axial images were obtained through the brain and cervical spine without the use of intravenous contrast. Sagittal and coronal reformations through the cervical spine were then performed. Auto Exposure Controls were utilized during the CT exam to meet ALARA standards for radiation dose reduction. INDICATION: Altered mental status. Confusion. Possible seizure. FINDINGS: CT HEAD: There is no evidence of intracranial hemorrhage. The ventricles and cortical gyral pattern are normal. No extra-axial fluid collection. Basal cisterns are clear. Mastoid air cells and paranasal sinuses are well-aerated and clear. No bony fracture. IMPRESSION: Negative CT head. CT CERVICAL SPINE: Sagittal and coronal reformatted images again show fusion of the cervical spine anteriorly at C5-C6. There does appear to be solid bony fusion. No evidence of hardware complication. Vertebral bodies show good alignment throughout. Facets show good alignment. No evidence of fractures. The surrounding soft tissues are normal. IMPRESSION: Cervical fusion with no acute abnormalities demonstrated. Dictated on workstation # [id number] Dict: 07/22/18 2159 Trans: 07/22/188 [facility] [id number] Interpreted by: JO HOOPER MD Electronically signed by: Departure Impression Primary Impression: Seizure Disposition: 01 HOME, SELF-CARE Condition: Improved Departure-Patient Inst. Decision time for Depature: 23:03 Referrals: [facility] (PCP/Family) Primary Care Physician Patient Instructions: Seizures, Adult (DC) Add. Discharge Instructions: All discharge instructions reviewed with patient and/or family. Voiced understanding. Keep appointment tomorrow as scheduled. Take your medications tonight as scheduled. You can talk with your doctor tomorrow about your medicines as discussed. Return for worse pain, fever, vomiting, weakness, breathing problems or other concerns as needed. LUCIA COLLINS MD Jul 22, 2018 22:02
--- NOTE | 2018-07-22 22:09 | Diagnostic Imaging Report ---
PROCEDURE: CT head and CT cervical spine without contrast. TECHNIQUE: Multiple contiguous axial images were obtained through the brain and cervical spine without the use of intravenous contrast. Sagittal and coronal reformations through the cervical spine were then performed. Auto Exposure Controls were utilized during the CT exam to meet ALARA standards for radiation dose reduction. INDICATION: Altered mental status. Confusion. Possible seizure. FINDINGS: CT HEAD: There is no evidence of intracranial hemorrhage. The ventricles and cortical gyral pattern are normal. No extra-axial fluid collection. Basal cisterns are clear. Mastoid air cells and paranasal sinuses are well-aerated and clear. No bony fracture. IMPRESSION: Negative CT head. CT CERVICAL SPINE: Sagittal and coronal reformatted images again show fusion of the cervical spine anteriorly at C5-C6. There does appear to be solid bony fusion. No evidence of hardware complication. Vertebral bodies show good alignment throughout. Facets show good alignment. No evidence of fractures. The surrounding soft tissues are normal. IMPRESSION: Cervical fusion with no acute abnormalities demonstrated. Dictated by: Dictated on workstation # [id number]
[2018-07-22 23:29] VITALS: BP 112/85
--- OUTSIDE RECORDS SUMMARY | 2018-07-23 00:13 | XMS REPORT | Continuity of Care Document ---
Author Organization Unknown Address Unknown Allergies Active Description Code Type Severity Reaction Onset Reported/Identified Relationship to Patient Clinical Status Yes Penicillins [id number] Drug Allergy Unknown N/A 04/28/2017 Yes Sulfa (Sulfonamide Antibiotics) [id number] Drug Allergy Unknown N/A 04/28/2017 Medications There is no data. Problems Date Dx Coded Attending Type Code Diagnosis Diagnosed By 04/30/2017 JASBIR CADENA DO, Ot E27.9 DISORDER OF ADRENAL GLAND, UNSPECIFIED 04/30/2017 JASBIR CADENA DO, Ot M51.26 OTHER INTERVERTEBRAL DISC DISPLACEMENT, 04/30/2017 JASBIR CADENA DO, Ot R07.89 OTHER CHEST PAIN 04/30/2017 JASBIR CADENA DO Ot R19.7 DIARRHEA, UNSPECIFIED 04/30/2017 JASBIR CADENA DO, Ot R55 SYNCOPE AND COLLAPSE 04/30/2017 JASBIR CADENA DO, Ot Z87.891 PERSONAL HISTORY OF NICOTINE DEPENDENCE 06/25/2017 BOLA GARCIA TEACHING ASSISTANT Ot R42 DIZZINESS AND GIDDINESS 06/25/2017 BOLA GARCIA TEACHING ASSISTANT Ot R53.1 WEAKNESS 06/25/2017 BOLA GARCIA TEACHING ASSISTANT Ot R53.83 OTHER FATIGUE 06/25/2017 BOLA GARCIA L TEACHING ASSISTANT Ot R55 SYNCOPE AND COLLAPSE 06/25/2017 BOLA GARCIA L TEACHING ASSISTANT Ot Z88.0 ALLERGY STATUS TO PENICILLIN 06/25/2017 APRYL GARCIAHER L TEACHING ASSISTANT Ot Z88.2 ALLERGY STATUS TO SULFONAMIDES STATUS 06/26/2017 BOLA GARCIA L TEACHING ASSISTANT Ot R42 DIZZINESS AND GIDDINESS 06/26/2017 APRYL GARCIAHER L TEACHING ASSISTANT Ot R53.1 WEAKNESS 06/26/2017 APRYL GARCIAHER L TEACHING ASSISTANT Ot R53.83 OTHER FATIGUE 06/26/2017 BAIMA, BOLA L TEACHING ASSISTANT Ot R55 SYNCOPE AND COLLAPSE 06/26/2017 BAIMA, BOLA L TEACHING ASSISTANT Ot Z88.0 ALLERGY STATUS TO PENICILLIN 06/26/2017 BAIMA, BOLA L TEACHING ASSISTANT Ot Z88.2 ALLERGY STATUS TO SULFONAMIDES STATUS 06/26/2017 JACI LEWIS FAC, ALI FACP CCDS Ot R55 SYNCOPE AND COLLAPSE 06/28/2017 JACI LEWIS FAC, ALI FACP CCDS Ot R55 SYNCOPE AND COLLAPSE 07/23/2017 BAIMA, BOLA L TEACHING ASSISTANT Ot R42 DIZZINESS AND GIDDINESS 07/23/2017 MAYELAMA, BOLA L TEACHING ASSISTANT Ot R53.1 WEAKNESS 07/23/2017 BAIMA, BOLA L TEACHING ASSISTANT Ot R53.83 OTHER FATIGUE 07/23/2017 BAIMA, BOLA L TEACHING ASSISTANT Ot R55 SYNCOPE AND COLLAPSE 07/23/2017 BAIMA, BOAL L TEACHING ASSISTANT Ot Z88.0 ALLERGY STATUS TO PENICILLIN 07/23/2017 BAIMA, BOLA L TEACHING ASSISTANT Ot Z88.2 ALLERGY STATUS TO SULFONAMIDES STATUS 07/23/2017 MAYELAMA BOLA L TEACHING ASSISTANT Ot R42 DIZZINESS AND GIDDINESS 07/23/2017 MAYELAMA BOLA L TEACHING ASSISTANT Ot R53.1 WEAKNESS 07/23/2017 BAIMA, BOLA L TEACHING ASSISTANT Ot R53.83 OTHER FATIGUE 07/23/2017 BAIMA, BOLA L TEACHING ASSISTANT Ot R55 SYNCOPE AND COLLAPSE 07/23/2017 BAIMA, BOLA L TEACHING ASSISTANT Ot Z88.0 ALLERGY STATUS TO PENICILLIN 07/23/2017 BAIMA, BOLA L TEACHING ASSISTANT Ot Z88.2 ALLERGY STATUS TO SULFONAMIDES STATUS 10/12/2017 MAYELAMA BOLA L TEACHING ASSISTANT Ot R42 DIZZINESS AND GIDDINESS 10/12/2017 MAYELAMA, BOLA L TEACHING ASSISTANT Ot R53.1 WEAKNESS 10/12/2017 BAIMA, BOLA L TEACHING ASSISTANT Ot R53.83 OTHER FATIGUE 10/12/2017 BAIMA, BOLA L TEACHING ASSISTANT Ot R55 SYNCOPE AND COLLAPSE 10/12/2017 BAIMA, BOLA L TEACHING ASSISTANT Ot Z88.0 ALLERGY STATUS TO PENICILLIN 10/12/2017 BAIMA, BOLA L TEACHING ASSISTANT Ot Z88.2 ALLERGY STATUS TO SULFONAMIDES STATUS 10/12/2017 TASNEEM YOUNG APRN Ot F41.9 ANXIETY DISORDER, UNSPECIFIED 10/12/2017 TASNEEM YOUNG APRN Ot R06.02 SHORTNESS OF BREATH 10/12/2017 TASNEEM YOUNG APRN Ot 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 10/12/2017 TASNEEM YOUNG BILL COLLECTOR Ot Z88.0 ALLERGY STATUS TO PENICILLIN 10/12/2017 TASNEEM YOUNG BILL COLLECTOR Ot Z88.2 ALLERGY STATUS TO SULFONAMIDES STATUS 10/12/2017 TASNEEM YOUNG BILL COLLECTOR Ot Z90.710 ACQUIRED ABSENCE OF BOTH CERVIX AND UTER 10/12/2017 TASNEEM YOUNG BILL COLLECTOR Ot Z98.1 ARTHRODESIS STATUS 10/16/2017 TASNEEM YOUNG APRN Ot F41.9 ANXIETY DISORDER, UNSPECIFIED 10/16/2017 TASNEEM YOUNG APRN Ot R06.02 SHORTNESS OF BREATH 10/16/2017 TASNEEM YOUNG APRN Ot Z79.82 MCC (CURRENT) USE OF ASPIRIN 10/16/2017 TASNEEM YOUNG APRN Ot Z88.0 ALLERGY STATUS TO PENICILLIN 10/16/2017 TASNEEM YOUNG APRN Ot Z88.2 ALLERGY STATUS TO SULFONAMIDES STATUS 10/16/2017 TASNEEM YOUNG APRN Ot Z90.710 ACQUIRED ABSENCE OF BOTH CERVIX AND UTER 10/16/2017 TASNEEM YOUNG APRN Ot Z98.1 ARTHRODESIS STATUS 10/16/2017 TASNEEM YOUNG APRN Ot F41.9 ANXIETY DISORDER, UNSPECIFIED 10/16/2017 TASNEEM YOUNG APRN Ot R06.02 SHORTNESS OF BREATH 10/16/2017 TASNEEM YOUNG APRN Ot Z79.82 MCC (CURRENT) USE OF ASPIRIN 10/16/2017 TASNEEM YOUNG BILL COLLECTOR Ot Z88.0 ALLERGY STATUS TO PENICILLIN 10/16/2017 TASNEEM YOUNG BILL COLLECTOR Ot Z88.2 ALLERGY STATUS TO SULFONAMIDES STATUS 10/16/2017 TASNEEM YOUNG BILL COLLECTOR Ot Z90.710 ACQUIRED ABSENCE OF BOTH CERVIX AND UTER 10/16/2017 TASNEEM YOUNG BILL COLLECTOR Ot Z98.1 ARTHRODESIS STATUS 10/18/2017 TASNEEM YOUNG APRN Ot F41.9 ANXIETY DISORDER, UNSPECIFIED 10/18/2017 TASNEEM YOUNG BILL COLLECTOR Ot R06.02 SHORTNESS OF BREATH 10/18/2017 YOUNGTASNEEM WHATLEY APRN Ot Z79.82 MCC (CURRENT) USE OF ASPIRIN 10/18/2017 TASNEEM YOUNG APRN Ot Z88.0 ALLERGY STATUS TO PENICILLIN 10/18/2017 TASNEEM YOUNG APRN Ot Z88.2 ALLERGY STATUS TO SULFONAMIDES STATUS 10/18/2017 TASNEEM YOUNG APRN Ot Z90.710 ACQUIRED ABSENCE OF BOTH CERVIX AND UTER 10/18/2017 TASNEEM YOUNG APRN Ot Z98.1 ARTHRODESIS STATUS 11/06/2017 LUCIA COLLINS MD Ot I10 ESSENTIAL (PRIMARY) HYPERTENSION 11/06/2017 LUCIA COLLINS MD, Ot M25.511 PAIN IN RIGHT SHOULDER 11/06/2017 LUCIA COLLINS MD Ot R40.2142 COMA SCALE, EYES OPEN, SPONTANEOUS, EMR 11/06/2017 LUCIA COLLINS MD, Ot R40.2252 COMA SCALE, BEST VERBAL RESPONSE, ORIENT 11/06/2017 LUCIA COLLINS MD, Ot R40.2362 COMA SCALE, BEST MOTOR RESPONSE, OBEYS C 11/06/2017 LUCIA COLLINS MD Ot S16.1XXA STRAIN OF MUSCLE, FASCIA AND TENDON AT N 11/06/2017 LUCIA COLLINS MD Ot S29.012A STRAIN OF MUSCLE AND TENDON OF BACK WALL 11/06/2017 LUCIA COLLINS MD Ot S40.011A CONTUSION OF RIGHT SHOULDER, INITIAL ENC 11/06/2017 LUCIA COLLINS MD Ot W13.8XXA FALL FROM, OUT OF OR THROUGH H BUILDIN 11/06/2017 LUCIA COLLINS MD Ot Z87.891 PERSONAL HISTORY OF NICOTINE DEPENDENCE 11/06/2017 LUCIA COLLINS MD Ot Z88.0 ALLERGY STATUS TO PENICILLIN 11/06/2017 LUCIA COLLINS MD Ot Z88.2 ALLERGY STATUS TO SULFONAMIDES STATUS 11/06/2017 LUCIA COLLINS MD Ot Z90.710 ACQUIRED ABSENCE OF BOTH CERVIX AND UTER 11/06/2017 LUCIA COLLINS MD Ot Z98.1 ARTHRODESIS STATUS 11/08/2017 LUCIA COLLINS MD Ot I10 ESSENTIAL (PRIMARY) HYPERTENSION 11/08/2017 LUCIA COLLINS MD Ot M25.511 PAIN IN RIGHT SHOULDER 11/08/2017 LUCIA COLLINS MD Ot R40.2142 COMA SCALE, EYES OPEN, SPONTANEOUS, EMR 11/08/2017 LUCIA COLLINS MD, Ot R40.2252 COMA SCALE, BEST VERBAL RESPONSE, ORIENT 11/08/2017 LUCIA COLLINS MD, Ot R40.2362 COMA SCALE, BEST MOTOR RESPONSE, OBEYS C 11/08/2017 LUCIA COLLINS MD, Ot S16.1XXA STRAIN OF MUSCLE, FASCIA AND TENDON AT N 11/08/2017 LUCIA COLLINS MD Ot S29.012A STRAIN OF MUSCLE AND TENDON OF BACK WALL 11/08/2017 LUCIA COLLINS MD Ot S40.011A CONTUSION OF RIGHT SHOULDER, INITIAL ENC 11/08/2017 LUCIA COLLINS MD Ot W13.8XXA FALL FROM, OUT OF OR THROUGH OTH BUILDIN 11/08/2017 LUCIA COLLINS MD, Ot Z87.891 PERSONAL HISTORY OF NICOTINE DEPENDENCE 11/08/2017 LUCIA COLLINS MD Ot Z88.0 ALLERGY STATUS TO PENICILLIN 11/08/2017 LUCIA COLLINS MD Ot Z88.2 ALLERGY STATUS TO SULFONAMIDES STATUS 11/08/2017 LUCIA COLLINS MD Ot Z90.710 ACQUIRED ABSENCE OF BOTH CERVIX AND UTER 11/08/2017 LUCIA COLLINS MD Ot Z98.1 ARTHRODESIS STATUS 11/12/2017 LUCIA COLLISN MD Ot I10 ESSENTIAL (PRIMARY) HYPERTENSION 11/12/2017 LUCIA COLLINS MD, Ot M25.511 PAIN IN RIGHT SHOULDER 11/12/2017 LUCIA COLLINS MD, Ot R40.2142 COMA SCALE, EYES OPEN, SPONTANEOUS, EMR 11/12/2017 LUCIA COLLINS MD, Ot R40.2252 COMA SCALE, BEST VERBAL RESPONSE, ORIENT 11/12/2017 LUCIA COLLINS MD, Ot R40.2362 COMA SCALE, BEST MOTOR RESPONSE, OBEYS C 11/12/2017 LUCIA COLLINS MD Ot S16.1XXA STRAIN OF MUSCLE, FASCIA AND TENDON AT N 11/12/2017 LUCIA COLLINS MD, Ot S29.012A STRAIN OF MUSCLE AND TENDON OF BACK WALL 11/12/2017 LUCIA COLLINS MD Ot S40.011A CONTUSION OF RIGHT SHOULDER, INITIAL ENC 11/12/2017 LUCIA COLLINS MD Ot W13.8XXA FALL FROM, OUT OF OR THROUGH OTH BUILDIN 11/12/2017 LUCIA COLLINS MD Ot Z87.891 PERSONAL HISTORY OF NICOTINE DEPENDENCE 11/12/2017 LUCIA COLLINS MD Ot Z88.0 ALLERGY STATUS TO PENICILLIN 11/12/2017 LUCIA COLLINS MD Ot Z88.2 ALLERGY STATUS TO SULFONAMIDES STATUS 11/12/2017 LUCIA COLLINS MD Ot Z90.710 ACQUIRED ABSENCE OF BOTH CERVIX AND UTER 11/12/2017 LUCIA COLLINS MD Ot Z98.1 ARTHRODESIS STATUS 04/18/2018 DARRELL DO WANDY K Ot I10 ESSENTIAL (PRIMARY) HYPERTENSION 04/18/2018 DARRELL DO WANDY K Ot R09.81 NASAL CONGESTION 04/18/2018 DARRELL DO WANDY K Ot R50.9 FEVER, UNSPECIFIED 04/18/2018 DARRELL DO, WANDY K Ot R52 PAIN, UNSPECIFIED 04/18/2018 DARRELL DO WANDY K Ot 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 04/18/2018 DARRELL DO WANDY K Ot Z88.0 ALLERGY STATUS TO PENICILLIN 04/18/2018 DARRELL DO WANDY K Ot Z88.2 ALLERGY STATUS TO SULFONAMIDES STATUS 04/18/2018 DARRELL DO WANDY K Ot Z90.710 ACQUIRED ABSENCE OF BOTH CERVIX AND UTER 04/18/2018 DARRELL DO WANDY K Ot Z98.1 ARTHRODESIS STATUS 06/29/2018 SEALS DO, MARTINEZ E Ot 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 (GENERAL) (ROUTINE) 06/29/2018 SEALS DO, MARTINEZ E Ot Z12.31 ENCNTR SCREEN MAMMOGRAM FOR MALIGNANT NE 07/03/2018 SEALS DO, MARTINEZ E Ot 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 Results Test Result Range Complete blood count (CBC) with automated white blood cell (WBC) differential - 04/28/17 13:57 Blood leukocytes automated count (number/volume) 10.8 10*3/uL 4.3-11.0 Blood erythrocytes automated count (number/volume) 4.66 10*6/uL 4.35-5.85 Venous blood hemoglobin measurement (mass/volume) 14.3 g/dL 11.5-16.0 Blood hematocrit (volume fraction) 42 % 35-52 Automated erythrocyte mean corpuscular volume 90 [foz_us] 80-99 Automated erythrocyte mean corpuscular hemoglobin (mass per erythrocyte) 31 pg 25-34 Automated erythrocyte mean corpuscular hemoglobin concentration measurement (mass/volume) 34 g/dL 32-36 Automated erythrocyte distribution width ratio 14.1 % 10.0- 14.5 Automated blood platelet count (count/volume) 299 10*3/uL 130-400 Automated blood platelet mean volume measurement 9.4 [foz_us] 7.4-10.4 Automated blood neutrophils/100 leukocytes 79 % 42-75 Automated blood lymphocytes/100 leukocytes 11 % 12-44 Blood monocytes/100 leukocytes 9 % 0-12 Automated blood eosinophils/100 leukocytes 1 % 0-10 Automated blood basophils/100 leukocytes 0 % 0-10 Blood neutrophils automated count (number/volume) 8.5 10*3 1.8-7.8 Blood lymphocytes automated count (number/volume) 1.2 10*3 1.0-4.0 Blood monocytes automated count (number/volume) 1.0 10*3 0.0- 1.0 Automated eosinophil count 0.1 10*3/uL 0.0-0.3 Automated blood basophil count (count/volume) 0.0 10*3/uL 0.0-0.1 PT panel in platelet poor plasma by coagulation assay - 04/28/17 13:57 Prothrombin time (PT) in platelet poor plasma by coagulation assay 13.1 s 12.2-14.7 INR in platelet poor plasma or blood by coagulation assay 1.0 0.8-1.4 Activated partial thromboplastin time (aPTT) in platelet poor plasma bycoagulation assay - 04/28/17 13:57 Activated partial thromboplastin time (aPTT) in platelet poor plasma bycoagulation assay 20 s 24-35 Comprehensive metabolic panel - 04/28/17 13:57 Serum or plasma sodium measurement (moles/volume) 139 mmol/L 135-145 Serum or plasma potassium measurement (moles/volume) 3.5 mmol/L 3.6-5.0 Serum or plasma chloride measurement (moles/volume) 108 mmol/L 98-107 Carbon dioxide 21 mmol/L 21-32 Serum or plasma anion gap determination (moles/volume) 10 mmol/L 5-14 Serum or plasma urea nitrogen measurement (mass/volume) 11 mg/dL 7-18 Serum or plasma creatinine measurement (mass/volume) 0.70 mg/dL 0.60-1.30 Serum or plasma urea nitrogen/creatinine mass ratio 16 NRG Serum or plasma creatinine measurement with calculation of estimated glomerular filtration rate > NRG Serum or plasma glucose measurement (mass/volume) 101 mg/dL 70-105 Serum or plasma calcium measurement (mass/volume) 8.8 mg/dL 8.5-10.1 Serum or plasma total bilirubin measurement (mass/volume) 0.4 mg/dL 0.1-1.0 Serum or plasma alkaline phosphatase measurement (enzymatic activity/volume) 72 U/L 40-136 Serum or plasma aspartate aminotransferase measurement (enzymatic activity/volume) 33 U/L 5-34 Serum or plasma alanine aminotransferase measurement (enzymatic activity/volume) 46 U/L 0-55 Serum or plasma protein measurement (mass/volume) 7.0 g/dL 6.4-8.2 Serum or plasma albumin measurement (mass/volume) 4.0 g/dL 3.2-4.5 Magnesium - 04/28/17 13:57 Magnesium 2.0 mg/dL 1.8-2.4 Serum or plasma creatine kinase measurement (enzymatic activity/volume) - 04/28/17 13:57 Serum or plasma creatine kinase measurement (enzymatic activity/volume) 39 U/L 29-168 Serum or plasma lithium measurement (moles/volume) - 04/28/17 13:57 BNP level 11.9 pg/mL <100.0 Serum or plasma creatine kinase MB measurement (enzymatic activity/volume) - 04/28/17 13:57 Serum or plasma creatine kinase MB measurement (enzymatic activity/volume) 0.5 ng/mL <6.6 Serum or plasma troponin i.cardiac measurement (mass/volume) - 04/28/17 13:57 Serum or plasma troponin i.cardiac measurement (mass/volume) < ng/mL <0.30 Serum or plasma thyrotropin measurement by detection limit <=0.05 miu/l (units/volume) - 04/28/17 13:57 Serum or plasma thyrotropin measurement by detection limit <=0.05 miu/l (units/volume) 0.65 u[iU]/mL 0.35-4.94 Myoglobin, serum - 04/28/17 13:57 Myoglobin, serum 20.6 ng/mL 10.0-92.0 Blood lactic acid measurement (moles/volume) - 04/28/17 14:28 Blood lactic acid measurement (moles/volume) 0.87 mmol/L 0.50- 2.00 Bacterial blood culture - 04/28/17 14:28 Bacterial blood culture NG G Influenza virus A and B antigen detection - 04/28/17 14:40 FLU RESULT NEGATIVE FOR INFLUENZA A AND B ANTIGENS BY IA NR Complete urinalysis with reflex to culture - 04/28/17 14:56 Urine color determination YELLOW NRG Urine clarity determination CLEAR NR Urine pH measurement by test strip 6.5 5-9 Specific gravity of urine by test strip 1.010 1.016-1.022 Urine protein assay by test strip, semi-quantitative NEGATIVE NEGATIVE Urine glucose detection by automated test strip NEGATIVE NEGATIVE Erythrocytes detection in urine sediment by light microscopy NEGATIVE NEGATIVE Urine ketones detection by automated test strip NEGATIVE NEGATIVE Urine nitrite detection by test strip NEGATIVE NEGATIVE Urine total bilirubin detection by test strip NEGATIVE NEGATIVE Urine urobilinogen measurement by automated test strip (mass/volume) NORMAL NORMAL Urine leukocyte esterase detection by dipstick NEGATIVE NEGATIVE Automated urine sediment erythrocyte count by microscopy (number/high power field) NONE NRG Automated urine sediment leukocyte count by microscopy (number/high power field) [HPF] NRG Bacteria detection in urine sediment by light microscopy FEW NRG Squamous epithelial cells detection in urine sediment by light microscopy 0-5 NRG Crystals detection in urine sediment by light microscopy NONE NRG Casts detection in urine sediment by light microscopy NONE NRG Mucus detection in urine sediment by light microscopy NEGATIVE NRG Complete urinalysis with reflex to culture YES NRG Bacterial urine culture - 04/28/17 14:56 URINE CULTURE RESULTS <10,000/ML NRG Bacterial blood culture - 04/28/17 15:10 QUANTITY OF GROWTH . NRG Bacterial blood culture SEE COMMEN NRG Complete blood count (CBC) with automated white blood cell (WBC) differential - 04/29/17 05:20 Blood leukocytes automated count (number/volume) 5.0 10*3/uL 4.3-11.0 Blood erythrocytes automated count (number/volume) 4.58 10*6/uL 4.35-5.85 Venous blood hemoglobin measurement (mass/volume) 14.2 g/dL 11.5-16.0 Blood hematocrit (volume fraction) 42 % 35-52 Automated erythrocyte mean corpuscular volume 92 [foz_us] 80-99 Automated erythrocyte mean corpuscular hemoglobin (mass per erythrocyte) 31 pg 25-34 Automated erythrocyte mean corpuscular hemoglobin concentration measurement (mass/volume) 34 g/dL 32-36 Automated erythrocyte distribution width ratio 14.4 % 10.0- 14.5 Automated blood platelet count (count/volume) 284 10*3/uL 130-400 Automated blood platelet mean volume measurement 9.7 [foz_us] 7.4-10.4 Automated blood neutrophils/100 leukocytes 46 % 42-75 Automated blood lymphocytes/100 leukocytes 31 % 12-44 Blood monocytes/100 leukocytes 20 % 0-12 Automated blood eosinophils/100 leukocytes 3 % 0-10 Automated blood basophils/100 leukocytes 0 % 0-10 Blood neutrophils automated count (number/volume) 2.3 10*3 1.8-7.8 Blood lymphocytes automated count (number/volume) 1.5 10*3 1.0-4.0 Blood monocytes automated count (number/volume) 1.0 10*3 0.0- 1.0 Automated eosinophil count 0.2 10*3/uL 0.0-0.3 Automated blood basophil count (count/volume) 0.0 10*3/uL 0.0-0.1 Comprehensive metabolic panel - 04/29/17 05:20 Serum or plasma sodium measurement (moles/volume) 142 mmol/L 135-145 Serum or plasma potassium measurement (moles/volume) 3.6 mmol/L 3.6-5.0 Serum or plasma chloride measurement (moles/volume) 112 mmol/L 98-107 Carbon dioxide 22 mmol/L 21-32 Serum or plasma anion gap determination (moles/volume) 8 mmol/L 5-14 Serum or plasma urea nitrogen measurement (mass/volume) 14 mg/dL 7-18 Serum or plasma creatinine measurement (mass/volume) 0.68 mg/dL 0.60-1.30 Serum or plasma urea nitrogen/creatinine mass ratio 21 NRG Serum or plasma creatinine measurement with calculation of estimated glomerular filtration rate > NRG Serum or plasma glucose measurement (mass/volume) 139 mg/dL 70-105 Serum or plasma calcium measurement (mass/volume) 8.8 mg/dL 8.5-10.1 Serum or plasma total bilirubin measurement (mass/volume) 0.3 mg/dL 0.1-1.0 Serum or plasma alkaline phosphatase measurement (enzymatic activity/volume) 71 U/L 40-136 Serum or plasma aspartate aminotransferase measurement (enzymatic activity/volume) 27 U/L 5-34 Serum or plasma alanine aminotransferase measurement (enzymatic activity/volume) 42 U/L 0-55 Serum or plasma protein measurement (mass/volume) 6.5 g/dL 6.4-8.2 Serum or plasma albumin measurement (mass/volume) 3.8 g/dL 3.2-4.5 Magnesium - 04/29/17 05:20 Magnesium 2.2 mg/dL 1.8-2.4 Lipid 1996 panel - 04/29/17 05:20 Serum or plasma triglyceride measurement (mass/volume) 174 mg/dL <150 Serum or plasma cholesterol measurement (mass/volume) 193 mg/dL < 200 Serum or plasma cholesterol in HDL measurement (mass/volume) 45 mg/dL 40-60 Cholesterol in LDL [mass/volume] in serum or plasma by direct assay 131 mg/dL 1-129 Serum or plasma cholesterol in VLDL measurement (mass/volume) 35 mg/dL 5-40 Blood manual differential performed detection - 04/29/17 05:20 Blood monocytes/100 leukocytes 11 % NRG Manual blood segmented neutrophils/100 leukocytes 50 % NRG Manual blood lymphocytes/100 leukocytes 35 % NRG Manual eosinophils/100 leukocytes in nose 4 % NRG Blood erythrocyte morphology finding identification NORMAL NR Complete blood count (CBC) with automated white blood cell (WBC) differential - 04/30/17 05:55 Blood leukocytes automated count (number/volume) 5.6 10*3/uL 4.3-11.0 Blood erythrocytes automated count (number/volume) 4.50 10*6/uL 4.35-5.85 Venous blood hemoglobin measurement (mass/volume) 13.9 g/dL 11.5-16.0 Blood hematocrit (volume fraction) 42 % 35-52 Automated erythrocyte mean corpuscular volume 92 [foz_us] 80-99 Automated erythrocyte mean corpuscular hemoglobin (mass per erythrocyte) 31 pg 25-34 Automated erythrocyte mean corpuscular hemoglobin concentration measurement (mass/volume) 34 g/dL 32-36 Automated erythrocyte distribution width ratio 14.1 % 10.0- 14.5 Automated blood platelet count (count/volume) 289 10*3/uL 130-400 Automated blood platelet mean volume measurement 9.3 [foz_us] 7.4-10.4 Automated blood neutrophils/100 leukocytes 53 % 42-75 Automated blood lymphocytes/100 leukocytes 32 % 12-44 Blood monocytes/100 leukocytes 11 % 0-12 Automated blood eosinophils/100 leukocytes 4 % 0-10 Automated blood basophils/100 leukocytes 0 % 0-10 Blood neutrophils automated count (number/volume) 3.0 10*3 1.8-7.8 Blood lymphocytes automated count (number/volume) 1.8 10*3 1.0-4.0 Blood monocytes automated count (number/volume) 0.6 10*3 0.0- 1.0 Automated eosinophil count 0.2 10*3/uL 0.0-0.3 Automated blood basophil count (count/volume) 0.0 10*3/uL 0.0-0.1 Whole blood basic metabolic panel - 04/30/17 05:55 Serum or plasma sodium measurement (moles/volume) 141 mmol/L 135-145 Serum or plasma potassium measurement (moles/volume) 3.8 mmol/L 3.6-5.0 Serum or plasma chloride measurement (moles/volume) 112 mmol/L 98-107 Carbon dioxide 21 mmol/L 21-32 Serum or plasma anion gap determination (moles/volume) 8 mmol/L 5-14 Serum or plasma urea nitrogen measurement (mass/volume) 12 mg/dL 7-18 Serum or plasma creatinine measurement (mass/volume) 0.61 mg/dL 0.60-1.30 Serum or plasma urea nitrogen/creatinine mass ratio 20 NRG Serum or plasma creatinine measurement with calculation of estimated glomerular filtration rate > NRG Serum or plasma glucose measurement (mass/volume) 102 mg/dL 70-105 Serum or plasma calcium measurement (mass/volume) 8.4 mg/dL 8.5-10.1 Magnesium - 04/30/17 05:55 Magnesium 2.1 mg/dL 1.8-2.4 THYROID ANALYZER - 05/14/17 10:48 TSH 1.57 mIU/L NRG A1C - 05/14/17 10:48 HEMOGLOBIN A1c 5.4 % of total Hgb <5.7 Complete blood count (CBC) with automated white blood cell (WBC) differential - 10/12/17 17:17 Blood leukocytes automated count (number/volume) 9.2 10*3/uL 4.3-11.0 Blood erythrocytes automated count (number/volume) 4.57 10*6/uL 4.35-5.85 Venous blood hemoglobin measurement (mass/volume) 14.1 g/dL 11.5-16.0 Blood hematocrit (volume fraction) 41 % 35-52 Automated erythrocyte mean corpuscular volume 91 [foz_us] 80-99 Automated erythrocyte mean corpuscular hemoglobin (mass per erythrocyte) 31 pg 25-34 Automated erythrocyte mean corpuscular hemoglobin concentration measurement (mass/volume) 34 g/dL 32-36 Automated erythrocyte distribution width ratio 14.1 % 10.0- 14.5 Automated blood platelet count (count/volume) 339 10*3/uL 130-400 Automated blood platelet mean volume measurement 9.4 [foz_us] 7.4-10.4 Automated blood neutrophils/100 leukocytes 62 % 42-75 Automated blood lymphocytes/100 leukocytes 28 % 12-44 Blood monocytes/100 leukocytes 10 % 0-12 Automated blood eosinophils/100 leukocytes 1 % 0-10 Automated blood basophils/100 leukocytes 0 % 0-10 Blood neutrophils automated count (number/volume) 5.7 10*3 1.8-7.8 Blood lymphocytes automated count (number/volume) 2.5 10*3 1.0-4.0 Blood monocytes automated count (number/volume) 0.9 10*3 0.0- 1.0 Automated eosinophil count 0.1 10*3/uL 0.0-0.3 Automated blood basophil count (count/volume) 0.0 10*3/uL 0.0-0.1 Fibrin D-dimer FEU measurement in platelet poor plasma (mass/volume) - 10/12/17 17:17 Fibrin D-dimer FEU measurement in platelet poor plasma (mass/volume) 0.39 ug/mL 0.00-0.49 Comprehensive metabolic panel - 10/12/17 17:17 Serum or plasma sodium measurement (moles/volume) 142 mmol/L 135-145 Serum or plasma potassium measurement (moles/volume) 3.6 mmol/L 3.6-5.0 Serum or plasma chloride measurement (moles/volume) 107 mmol/L 98-107 Carbon dioxide 25 mmol/L 21-32 Serum or plasma anion gap determination (moles/volume) 10 mmol/L 5-14 Serum or plasma urea nitrogen measurement (mass/volume) 14 mg/dL 7-18 Serum or plasma creatinine measurement (mass/volume) 0.86 mg/dL 0.60-1.30 Serum or plasma urea nitrogen/creatinine mass ratio 16 NRG Serum or plasma creatinine measurement with calculation of estimated glomerular filtration rate > NRG Serum or plasma glucose measurement (mass/volume) 93 mg/dL 70-105 Serum or plasma calcium measurement (mass/volume) 9.8 mg/dL 8.5-10.1 Serum or plasma total bilirubin measurement (mass/volume) 0.3 mg/dL 0.1-1.0 Serum or plasma alkaline phosphatase measurement (enzymatic activity/volume) 68 U/L 40-136 Serum or plasma aspartate aminotransferase measurement (enzymatic activity/volume) 21 U/L 5-34 Serum or plasma alanine aminotransferase measurement (enzymatic activity/volume) 24 U/L 0-55 Serum or plasma protein measurement (mass/volume) 7.2 g/dL 6.4-8.2 Serum or plasma albumin measurement (mass/volume) 4.3 g/dL 3.2-4.5 CALCIUM CORRECTED 9.6 mg/dL 8.5-10.1 Magnesium - 10/12/17 17:17 Magnesium 2.3 mg/dL 1.8-2.4 Serum or plasma troponin i.cardiac measurement (mass/volume) - 10/12/17 17:17 Serum or plasma troponin i.cardiac measurement (mass/volume) < ng/mL <0.30 Complete urinalysis with reflex to culture - 10/12/17 17:19 Urine color determination YELLOW NRG Urine clarity determination SLIGHTLY CLOUDY NRG Urine pH measurement by test strip 8 5-9 Specific gravity of urine by test strip 1.015 1.016-1.022 Urine protein assay by test strip, semi-quantitative NEGATIVE NEGATIVE Urine glucose detection by automated test strip NEGATIVE NEGATIVE Erythrocytes detection in urine sediment by light microscopy NEGATIVE NEGATIVE Urine ketones detection by automated test strip NEGATIVE NEGATIVE Urine nitrite detection by test strip NEGATIVE NEGATIVE Urine total bilirubin detection by test strip NEGATIVE NEGATIVE Urine urobilinogen measurement by automated test strip (mass/volume) NORMAL NORMAL Urine leukocyte esterase detection by dipstick 1+ NEGATIVE Automated urine sediment erythrocyte count by microscopy (number/high power field) NONE NRG Automated urine sediment leukocyte count by microscopy (number/high power field) RARE NRG Bacteria detection in urine sediment by light microscopy FEW NRG Squamous epithelial cells detection in urine sediment by light microscopy 2-5 NRG Crystals detection in urine sediment by light microscopy PRESENT NRG Casts detection in urine sediment by light microscopy NONE NRG Mucus detection in urine sediment by light microscopy NEGATIVE NRG Complete urinalysis with reflex to culture NO NRG Amorphous sediment detection in urine sediment by light microscopy MOD JAQUELIN PHOSPHATE NRG PDM - PAIN MGMT (PROFILE 3 WITH CONFIRMATION) - 10/17/17 15:34 Prescribed Drug 1 Hydrocodone NRG Creatinine 122.9 mg/dL > or=20.0 pH 7.15 4.5 - 9.0 Oxidant NEGATIVE mcg/mL <200 Amphetamines NEGATIVE ng/mL <500 medMATCH Amphetamines CONSISTENT NRG Benzodiazepines POSITIVE ng/mL <100 Marijuana Metabolite NEGATIVE ng/mL <20 medMATCH Marijuana Metab CONSISTENT NRG Cocaine Metabolite NEGATIVE ng/mL <150 medMATCH Cocaine Metab CONSISTENT NRG Opiates POSITIVE ng/mL <100 Oxycodone NEGATIVE ng/mL <100 medMATCH Oxycodone CONSISTENT NRG COMMENT NRG Alphahydroxyalprazolam NEGATIVE ng/mL <25 medMATCH aOH alprazolam CONSISTENT NRG Alphahydroxymidazolam NEGATIVE ng/mL <50 medMATCH aOH midazolam CONSISTENT NRG Alphahydroxytriazolam NEGATIVE ng/mL <50 medMATCH aOH triazolam CONSISTENT NRG Aminoclonazepam 60 ng/mL <25 medMATCH Aminoclonazepam INCONSISTENT NRG Hydroxyethylflurazepam NEGATIVE ng/mL <50 medMATCH [place],Et flurazepam CONSISTENT NRG Lorazepam NEGATIVE ng/mL <50 medMATCH Lorazepam CONSISTENT NRG Nordiazepam NEGATIVE ng/mL <50 medMATCH Nordiazepam CONSISTENT NRG Oxazepam NEGATIVE ng/mL <50 medMATCH Oxazepam CONSISTENT NRG Temazepam NEGATIVE ng/mL <50 medMATCH Temazepam CONSISTENT NRG Codeine NEGATIVE ng/mL <50 medMATCH Codeine CONSISTENT NRG Hydrocodone 255 ng/mL <50 medMATCH Hydrocodone CONSISTENT NRG Hydromorphone NEGATIVE ng/mL <50 medMATCH Hydromorphone CONSISTENT NRG Morphine NEGATIVE ng/mL <50 medMATCH Morphine CONSISTENT NRG Norhydrocodone 942 ng/mL <50 medMATCH Norhydrocodone CONSISTENT NRG Influenza virus A and B antigen detection - 04/18/18 20:23 FLU RESULT NEGATIVE FOR INFLUENZA A AND B ANTIGENS BY IA NRG PDM - PAIN MGMT (PROFILE 3 WITH CONFIRMATION) - 04/30/18 12:18 Prescribed Drug 1 Hydrocodone NRG Creatinine 231.6 mg/dL > or=20.0 pH 6.18 4.5 - 9.0 Oxidant NEGATIVE mcg/mL <200 Amphetamines NEGATIVE ng/mL <500 medMATCH Amphetamines CONSISTENT NRG Benzodiazepines POSITIVE ng/mL <100 Marijuana Metabolite NEGATIVE ng/mL <20 medMATCH Marijuana Metab CONSISTENT NRG Cocaine Metabolite NEGATIVE ng/mL <150 medMATCH Cocaine Metab CONSISTENT NRG Opiates POSITIVE ng/mL <100 Oxycodone NEGATIVE ng/mL <100 medMATCH Oxycodone CONSISTENT NRG COMMENT NRG Alphahydroxyalprazolam NEGATIVE ng/mL <25 medMATCH aOH alprazolam CONSISTENT NRG Alphahydroxymidazolam NEGATIVE ng/mL <50 medMATCH aOH midazolam CONSISTENT NRG Alphahydroxytriazolam NEGATIVE ng/mL <50 medMATCH aOH triazolam CONSISTENT NRG Aminoclonazepam 63 ng/mL <25 medMATCH Aminoclonazepam CONSISTENT NRG Hydroxyethylflurazepam NEGATIVE ng/mL <50 medMATCH [place],Et flurazepam CONSISTENT NRG Lorazepam NEGATIVE ng/mL <50 medMATCH Lorazepam CONSISTENT NRG Nordiazepam NEGATIVE ng/mL <50 medMATCH Nordiazepam CONSISTENT NRG Oxazepam NEGATIVE ng/mL <50 medMATCH Oxazepam CONSISTENT NRG Temazepam NEGATIVE ng/mL <50 medMATCH Temazepam CONSISTENT NRG Codeine NEGATIVE ng/mL <50 medMATCH Codeine CONSISTENT NRG Hydrocodone 1499 ng/mL <50 medMATCH Hydrocodone CONSISTENT NRG Hydromorphone 273 ng/mL <50 medMATCH Hydromorphone CONSISTENT NRG Morphine NEGATIVE ng/mL <50 medMATCH Morphine CONSISTENT NRG Norhydrocodone 2895 ng/mL <50 medMATCH Norhydrocodone CONSISTENT NRG Prescribed Drug 2 Clonazepam NRG TSH - 05/02/18 13:50 TSH 1.04 mIU/L NRG CULTURE, ANAEROBIC AND AEROBIC - 05/28/18 14:16 CULTURE, ANAEROBIC BACTERIA W/GRAM STAIN SEE NOTE NRG CULTURE, AEROBIC BACTERIA SEE NOTE NRG BMP - 06/19/18 08:57 GLUCOSE 91 mg/dL 65-99 UREA NITROGEN (BUN) 18 mg/dL 7-25 CREATININE 0.72 mg/dL 0.50-1.05 eGFR NON-AFR. ALBANIAN 98 mL/min/1.73m2 > OR=60 eGFR 113 mL/min/1.73m2 > OR=60 BUN/CREATININE RATIO NOT APPLICABLE (calc) 6-22 SODIUM 144 mmol/L 135-146 POTASSIUM 4.0 mmol/L 3.5-5.3 CHLORIDE 110 mmol/L 98-110 CARBON DIOXIDE 27 mmol/L 20-32 CALCIUM 8.9 mg/dL 8.6-10.4 SUREPATH PAP RFX HPV mRNA E6/E7 - 06/24/18 14:23 CLINICAL INFORMATION: NRG LMP: NRG PREV. PAP: NRG PREV. BX: NRG SOURCE: Vagina NRG STATEMENT OF ADEQUACY: NRG INTERPRETATION/RESULT: NRG PREFABRICATOR: NRG COMMENT NRG Complete blood count (CBC) with automated white blood cell (WBC) differential - 07/22/18 21:25 Blood leukocytes automated count (number/volume) 8.9 10*3/uL 4.3-11.0 Blood erythrocytes automated count (number/volume) 4.42 10*6/uL 4.35-5.85 Venous blood hemoglobin measurement (mass/volume) 13.7 g/dL 11.5-16.0 Blood hematocrit (volume fraction) 41 % 35-52 Automated erythrocyte mean corpuscular volume 93 [foz_us] 80-99 Automated erythrocyte mean corpuscular hemoglobin (mass per erythrocyte) 31 pg 25-34 Automated erythrocyte mean corpuscular hemoglobin concentration measurement (mass/volume) 33 g/dL 32-36 Automated erythrocyte distribution width ratio 14.7 % 10.0- 14.5 Automated blood platelet count (count/volume) 332 10*3/uL 130-400 Automated blood platelet mean volume measurement 9.0 [foz_us] 7.4-10.4 Automated blood neutrophils/100 leukocytes 60 % 42-75 Automated blood lymphocytes/100 leukocytes 30 % 12-44 Blood monocytes/100 leukocytes 9 % 0-12 Automated blood eosinophils/100 leukocytes 1 % 0-10 Automated blood basophils/100 leukocytes 0 % 0-10 Blood neutrophils automated count (number/volume) 5.3 10*3 1.8-7.8 Blood lymphocytes automated count (number/volume) 2.6 10*3 1.0-4.0 Blood monocytes automated count (number/volume) 0.8 10*3 0.0- 1.0 Automated eosinophil count 0.1 10*3/uL 0.0-0.3 Automated blood basophil count (count/volume) 0.0 10*3/uL 0.0-0.1 Comprehensive metabolic panel - 07/22/18 21:25 Serum or plasma sodium measurement (moles/volume) 143 mmol/L 135-145 Serum or plasma potassium measurement (moles/volume) 3.4 mmol/L 3.6-5.0 Serum or plasma chloride measurement (moles/volume) 108 mmol/L 98-107 Carbon dioxide 24 mmol/L 21-32 Serum or plasma anion gap determination (moles/volume) 11 mmol/L 5-14 Serum or plasma urea nitrogen measurement (mass/volume) 19 mg/dL 7-18 Serum or plasma creatinine measurement (mass/volume) 0.84 mg/dL 0.60-1.30 Serum or plasma urea nitrogen/creatinine mass ratio 23 NRG Serum or plasma creatinine measurement with calculation of estimated glomerular filtration rate > NRG Serum or plasma glucose measurement (mass/volume) 118 mg/dL 70-105 Serum or plasma calcium measurement (mass/volume) 9.2 mg/dL 8.5-10.1 Serum or plasma total bilirubin measurement (mass/volume) 0.2 mg/dL 0.1-1.0 Serum or plasma alkaline phosphatase measurement (enzymatic activity/volume) 60 U/L 40-136 Serum or plasma aspartate aminotransferase measurement (enzymatic activity/volume) 22 U/L 5-34 Serum or plasma alanine aminotransferase measurement (enzymatic activity/volume) 29 U/L 0-55 Serum or plasma protein measurement (mass/volume) 6.6 g/dL 6.4-8.2 Serum or plasma albumin measurement (mass/volume) 4.1 g/dL 3.2-4.5 CALCIUM CORRECTED 9.1 mg/dL 8.5-10.1 Magnesium - 07/22/18 21:25 Magnesium 2.9 mg/dL 1.8-2.4 THYROID STIMULATING HORMONE - 07/22/18 21:25 THYROID STIMULATING HORMONE 1.50 u[iU]/mL 0.35-4.94 Encounters ACCT No. Visit Date/Time Discharge Status Pt. Type Provider Facility Loc./Unit Complaint [id number] 07/18/2018 09:30:00 07/18/2018 23:59:59 CLS Outpatient GIA [facility] [id number] 06/24/2018 13:15:00 Document Registration [id number] 06/19/2018 08:00:00 Document Registration [id number] 05/28/2018 12:50:00 Document Registration [id number] 05/02/2018 13:00:00 Document Registration [id number] 04/30/2018 11:00:00 Document Registration [id number] 10/17/2017 14:40:00 Document Registration [id number] 05/14/2017 11:00:00 Document Registration [id number] 06/28/2018 08:07:00 06/28/2018 23:59:59 CLS Outpatient MARTINEZ LACEY DO [facility] RAD SCREENING [id number] 04/18/2018 19:58:00 04/18/2018 21:31:00 DIS Emergency WANDY RAMÍREZ DO [facility] ER FEVER, BODY ACHES [id number] 11/06/2017 17:14:00 11/06/2017 21:29:00 DIS Emergency LUCIA COLLINS MD [facility] ER R SIDE BACK, SHOULDER, NECK PAIN [id number] 10/12/2017 17:05:00 10/12/2017 18:27:00 DIS Outpatient TASNEEM YOUNG APRN [facility] ER SOB [id number] 06/26/2017 10:53:00 06/26/2017 12:30:00 DIS Outpatient JACI LEWIS FACC, SHARIF SAL CCDS [facility] CATH SYNCOPE,VERTIGO [id number] 05/22/2017 07:08:00 05/22/2017 23:59:59 CLS Outpatient BOLA GARCIA [facility] CARD SYCOPE,DIZZINESS,FATIGUE [id number] 04/28/2017 16:00:00 04/30/2017 16:20:00 DIS Inpatient JASBIR CADENA DO [facility] 4TH SYNCOPAL EPISODES,CHEST PAIN,SOB,SINUSITIS [id number] 07/22/2018 21:22:00 ACT Emergency LUCIA COLLINS MD [facility] ER SEIZURE
== END 2018-07-22 23:31 | disposition home or self-care (01) ==
LOC: EDUNIT# 21:21 → ER 21:22
DX: R56.9 Unspecified convulsions (principal); F43.10 Post-traumatic stress disorder, unspecified; I10 Essential (primary) hypertension; Z88.0 Allergy status to penicillin; Z88.2 Allergy status to sulfonamides; Z87.891 Personal history of nicotine dependence; Z90.710 Acquired absence of both cervix and uterus; Z98.1 Arthrodesis status; Z79.82 Long term (current) use of aspirin
CPT/HCPCS: 36415; 70450; 72125; 80053; 83735; 84443; 85025; 96360; 96361

== ENCOUNTER 2019-04-15 08:10 | Day surgery (SDC) | payer MEDICAID ==
[~2019-04-15] VITALS: Ht 165.1 cm; Wt 76.3 kg
[2019-04-15] VITALS (9 sets, daily range): BP systolic 116–137; BP diastolic 69–89
[2019-04-15] MEDS ORDERED: HEParin (CATH LAB) 2,000 ML IV ONE (08:19)
[2019-04-15] MEDS ORDERED: LIDOCAINE 1% INJ 20 ML 20 ML VIAL ONE (08:19)
[2019-04-15] MEDS ORDERED: NS IV 1000 ML 1,000 ML ONE (08:20)
[2019-04-15] MEDS ORDERED: NS IV 1000 ML 1,000 ML IV SCH ×2 (08:30→11:47)
[2019-04-15 09:01] LABS: HEMOGLOBIN 15.5 G/DL (11.5-16.0); MEAN PLATELET VOLUME 8.6 FL (7.4-10.4); RED CELL DISTRIBUTION WIDTH 14.9 % (10.0-14.5); WHITE BLOOD COUNT 9.5 10^3/uL (4.3-11.0)
[2019-04-15 09:23] LABS: ALANINE AMINOTRANSFERASE 22 U/L (0-55); ALKALINE PHOSPHATASE 60 U/L (40-136); BILIRUBIN,TOTAL 0.2 MG/DL (0.1-1.0); BUN/CREATININE RATIO 22; CARBON DIOXIDE 25 MMOL/L (21-32); CHLORIDE 110 MMOL/L (98-107); CHOLESTEROL 155 MG/DL (< 200); CREATININE SERUM 0.72 MG/DL (0.60-1.30); GFR ESTIMATED > 60; GLUCOSE 91 MG/DL (70-105); HDL CHOLESTEROL 51 MG/DL (40-60); SODIUM 142 MMOL/L (135-145); TOTAL PROTEIN 6.6 GM/DL (6.4-8.2); TRIGLYCERIDES 87 MG/DL (<150); VLDL CHOLESTEROL 17 MG/DL (5-40)
[2019-04-15] MEDS ORDERED: HYDR-3062 PO (09:26)
[2019-04-15] MEDS ORDERED: CLON0.5T4 PO (09:26)
[2019-04-15] MEDS ORDERED: CELE200C PO (09:26)
[2019-04-15] MEDS ORDERED: TRAZ-227 PO (09:26)
[2019-04-15] MEDS ORDERED: ATOR20TA66 PO (09:26)
[2019-04-15] MEDS ORDERED: TIZA2TAB4 PO (09:26)
[2019-04-15] MEDS ORDERED: CARI3CAP PO (09:26)
[2019-04-15] MEDS ORDERED: DEXT1TAB3 PO (09:26)
[2019-04-15] MEDS ORDERED: PRAZ2CAP2 PO ×2 (09:26)
[2019-04-15] MEDS ORDERED: LISI1TAB25 PO (09:26)
[2019-04-15 09:39] LABS: INR 0.9 (0.8-1.4); PROTHROMBIN TIME PATIENT 12.6 SEC (12.2-14.7)
[2019-04-15] MEDS ORDERED: fentaNYL INJECTION 100 MCG/2 ML AMP ONE (10:34)
[2019-04-15] MEDS ORDERED: MIDAZOLAM 5 MG/5 ML (VERSED) VIAL ONE (10:34)
--- NOTE | 2019-04-15 11:13 | Cardiac Procedure Note-CS/ASA ---
Pre-Procedure Note Pre-Op Procedure Note H&P Reviewed The H&P was reviewed, patient examined and no changes noted. Date H&P Reviewed: Apr 15, 2019 Time H&P Reviewed: 11:13 Conscious Sedation Pre-Proced Time 11:13 ASA Score 3 For ASA 3 and 4: Consider anesthesia and medical clearance. Also, for patients with a history of failed moderate sedation consider anesthesia. Airway Lungs Heart ASA score ASA 1: a normal healthy patient ASA 2: a patient with a mild systemic disease (mid diabetes, controlled hypertension, obesity ASA 3: a patient with a severe systemic disease that limits activity (angina, COPD, prior Myocardial infarction) ASA 4: a patient with an incapacitating disease that is a constant threat to life (CHF, renal failure) ASA 5: a moribund patient not expected to survive 24 hrs. (ruptured aneurysm) ASA 6: a declared brain- patient whose organs are being harvested. For emergent operations, add the letter E after the classification Mallampati Classification Grade 2 Sedation Plan Analgesia, Amnesia, Plan communicated to team members, Discussed options with patient/fam, Discussed risks with patient/fam The patient is an appropriate candidate to undergo the planned procedure, sedation, and anesthesia. The patient immediately re-assessed prior to indication. SHARIF BEATTY MD FACP FAC CCDS Apr 15, 2019 11:13
--- NOTE | 2019-04-15 11:50 | Discharge Inst-Post CATH ---
Discharge Inst-CATH/EP Post Cardiac Cath/EP D/C Inst Follow Up/Plan F/u with Dr Samuel in 4-6 weeks <b>CARDIAC CATH/EP PROCEDURE DISCHARGE INSTRUCTIONS</b> ACTIVITY * Go Home directly and rest. * Limit activity of the leg (or wrist if it was used) for 7 days including aerobics, swimming, jogging, bicycling, etc. * Restrict stair-climbing for 7 days if possible, if not, climb up with your non-cath leg, then bring together on the same step. * Avoid lifting, pushing, pulling or excessive movement of the affected extremity for 7 days. * Customary sexual activity may be resumed after 2 days-use caution not to use a position that strains or causes pain to the affected extremity. * No driving for 24 hours. * NO SMOKING. * Avoid straining for bowel movements for 7 days. * Gentle walking on level ground is allowed. * Returning to work will depend on the type of procedure and the results. Your doctor will discuss this with you. CALL YOUR DOCTOR FOR ANY OF THE FOLLOWING: *If bleeding from the puncture site occurs- Apply gentle pressure to site with clean cloth and call your doctor or EMS. * If a knot or lump forms under the skin, increases in size, or causes pain. * If bruising appears to be worsening or moving further down your leg instead of disappearing. * Temperature above 101 F. CARE OF YOUR GROIN INCISION; * Bruising or purple discoloration of the skin near the puncture site is common. * You may shower only, no bathtub bathing for 5 days. Be careful to avoid slipping as your leg may feel stiff. * If a closure device was used on your femoral artery, please see the attached guide regarding care of the device and your leg. * Leave dressing on FOR 24 hours. CARE OF YOUR WRIST INCISION; * Bruising or purple discoloration of the skin near the puncture site is common. * You may shower. * DO NOT submerge wrist. * Leave dressing on FOR 24 hours. SHARIF SAMUEL MD FACP FAC CCDS Apr 15, 2019 11:50
--- NOTE | 2019-04-15 11:50 | Discharge Inst-Cardiology ---
Discharge Inst-Cardiac Discharge Medications Continued Medications: Atorvastatin Calcium (Atorvastatin Calcium) 20 Mg Tablet 20 MG PO DAILY, TAB Cariprazine Hydrochloride (Vraylar) 3 Mg Capsule 3 MG PO HS, CAP Celecoxib (Celebrex) 200 Mg Capsule 200 MG PO DAILY, CAP Clonazepam (Clonazepam) 0.5 Mg Tablet 0.5 MG PO DAILY PRN PRN for ANXIETY, TAB Dextromethorphan HBr/Chlor-Mal (Coricidin Hbp Cough & Cold Tab) 1 Each Tablet 1 EACH PO PRN PRN for CONGESTION, TAB Hydrocodone/Acetaminophen (Hydrocodon-Acetaminophen 5-300) 1 Each Tablet 1 EACH PO TID PRN for PAIN-MODERATE for 7 Days, TAB Lisinopril/Hydrochlorothiazide (Lisinopril-Hctz 20-12.5 mg Tab) 1 Each Tablet 1 EACH PO DAILY, TAB Prazosin HCl (Prazosin HCl) 2 Mg Capsule 2 MG PO DAILY, CAP Prazosin HCl (Prazosin HCl) 2 Mg Capsule 8 MG PO HS, CAP TAKE ONE CAPSULE BY MOUTH IN THE MORNING AND FOUR CAPSULES AT BEDTIME Tizanidine HCl (Tizanidine HCl) 2 Mg Tablet 2 MG PO BID, TAB Trazodone HCl (Trazodone HCl) 100 Mg Tablet 100-200 MG PO HS PRN for INSOMNIA, TAB Discontinued Medications: Aspirin (Aspir 81) 81 Mg Tablet.dr 81 MG PO DAILY, #30 SHARIF PAINTING MD FACP FAC CCDS Apr 15, 2019 11:50
[2019-04-15] MEDS ORDERED: PATIENT MAY USE OWN MEDS, ALL PO SCH (12:00)
--- NOTE | 2019-04-15 12:00 | NUR ---
in report per myles, otoniel de la torre gave verbal order to continue asa at discharge.
--- NOTE | 2019-04-15 12:53 | CARDIAC CATHETERIZATION ---
DATE OF SERVICE: 04/15/2019 CARDIAC CATHETERIZATION REPORT The patient is a 48-year-old lady with multiple coronary artery risk factors and who has frequent episodes of chest pains, some of them relieved with nitroglycerin. Cardiac catheterization was carried out today after having obtained an informed consent. PROCEDURE: She was brought to the cardiac catheterization laboratory in a fasting state. Right groin was prepared and draped in the usual sterile fashion. Lidocaine 1% for local anesthesia. Modified Seldinger technique was used to advance a 5-[place] sheath in the right femoral artery, 5-[place] JL4 catheter for left coronary angiography, 5-[place] JR4 catheter was used for right coronary angiography, 5-[place] pigtail catheter was used for left heart catheterization and left ventricular angiography. Angiography of the right femoral artery was carried out through the sheath. Mynx was used to achieve hemostasis following sheath removal. She tolerated the procedure well. HEMODYNAMICS: Left ventricular end-diastolic pressure 11 mmHg. There is no significant pressure gradient on pullback across the aortic valve. Ascending aortic pressure was 114/65 with a mean of 70 mmHg. CORONARY ANGIOGRAPHY: Left main coronary artery, left anterior descending artery, left circumflex artery, right coronary artery are angiographically normal. Right coronary artery is dominant. LEFT VENTRICULAR ANGIOGRAPHY: Left ventricular angiography was carried out in right anterior oblique projection. Global left ventricular systolic function is normal. No regional wall motion abnormalities seen. Left ventricular ejection fraction is approximately 65%. CONCLUSIONS: 1. Angiographically normal coronary arteries. 2. Normal global left ventricular systolic function. 3. Normal regional wall motion. 4. Normal left ventricular end-diastolic pressure. DISCUSSION AND RECOMMENDATIONS: Based on results of the study, it appears appropriate to continue a conservative approach and focus on risk factor modification. This has been discussed with her. Job ID: [id number] DocumentID: [id number] Dictated Date: 04/15/2019 11:36:32 Line Worker Date: 04/15/2019 12:52:27 Dictated By: SHARIF BEATTY MD, MA, FACP, FACC, MTDD
== END 2019-04-15 15:07 | disposition home or self-care (01) ==
LOC: CATH 08:10 → SDC 11:58 → CATH 15:07
PROVIDERS: ATTEND Internal Medicine Cardiovascular Disease
DX: R07.9 Chest pain, unspecified (principal); R55 Syncope and collapse; G89.4 Chronic pain syndrome; F17.210 Nicotine dependence, cigarettes, uncomplicated; Z96.659 Presence of unspecified artificial knee joint; Z79.82 Long term (current) use of aspirin; Z79.899 Other long term (current) drug therapy; Z88.0 Allergy status to penicillin; Z88.2 Allergy status to sulfonamides
CPT/HCPCS: 36415; 80053; 80061; 85027; 85610; 85730; 87081; 93458

== ENCOUNTER → 2019-09-29 | Outpatient (CLI) | payer MEDICAID ==
[~2019-09-29] MED LIST changes: +ACHD5005 PO; +ATOR20TA66 PO; +CARI3CAP PO; +CELE200C PO; +CLON0.5T4 PO; +DEXT1TAB3 PO; +LISI1TAB25 PO; +PRAZ2CAP2 PO; +TIZA2TAB7 PO; +TRAZ-227 PO
--- NOTE | 2019-09-29 12:27 | Diagnostic Imaging Report ---
EXAMINATION: Magnetic resonance imaging of the left shoulder without contrast. DATE: September 29, 2019. COMPARISON: None. HISTORY: 49-year-old female, fall. Left shoulder pain. TECHNIQUE: Magnetic Resonance Imaging sequences were performed of the shoulder without contrast. FINDINGS: ROTATOR CUFF, LIGAMENTS, TENDONS, AND MUSCLES: The supraspinatus, infraspinatus, teres minor, and subscapularis tendons and muscles are intact. There is normal rotator cuff muscle bulk and signal. LONG HEAD OF BICEPS: The biceps labral attachment and long head of the biceps tendon are intact. The long head of the biceps tendon is normally positioned within the bicipital groove. GLENOHUMERAL JOINT: The humeral head is well positioned relative to the glenoid. The labrum is grossly intact. There is no identified paralabral cyst. The articular cartilage is grossly intact. There is no joint effusion. ACROMIOCLAVICULAR JOINT: The acromioclavicular joint is normally aligned. The coracoclavicular and coracoacromial ligaments are intact. There are mild acromioclavicular degenerative changes without large undersurface osteophyte. BONE: The bones all have normal configuration. The bone marrow signal is within normal limits. Specifically, negative for fracture, osteomyelitis, osteonecrosis, or marrow replacing process. BURSAE AND SOFT TISSUES: The bursae and soft tissue surrounding the shoulder are unremarkable. IMPRESSION: 1. Intact rotator cuff and proximal long head of biceps tendon. 2. Mild acromioclavicular degenerative changes without large undersurface osteophyte. 3. Grossly intact labrum and unremarkable additional glenohumeral joint assessment. 4. No acute fracture, bone contusion, or evidence of osteonecrosis. Dictated by: Dictated on workstation # [id number]
== END ==
LOC: RAD 09:45
PROVIDERS: ATTEND Physician Assistant
DX: M19.012 Primary osteoarthritis, left shoulder (principal)
CPT/HCPCS: 73221

== ENCOUNTER 2020-01-12 05:29 | Outpatient (RCR) | payer MEDICAID ==
[~2020-01-12] VITALS: Ht 165 cm; Wt 79.0 kg
[~2020-01-12 05:29] MED LIST changes: +CETI10TA17 PO; -LISI1TAB25 PO; +LISI1TAB46 PO; +PARO-49 PO; +VARE1TAB22 PO
--- NOTE | 2020-01-13 08:45 | NUR ---
Notified of positive COVID test. Also notified OR.
== END 2020-01-12 10:50 | disposition home or self-care (01) ==
LOC: PREOP 05:29
PROVIDERS: ATTEND Orthopaedic Surgery
DX: Z01.812 Encounter for preprocedural laboratory examination (principal); U07.1 COVID-19; S43.432A Superior glenoid labrum lesion of left shoulder, initial encounter
CPT/HCPCS: 87635

== ENCOUNTER 2020-01-28 05:49 | Outpatient (RCR) | payer MEDICAID ==
[~2020-01-28] VITALS: Ht 165.1 cm; Wt 79.5 kg
== END 2020-01-29 10:20 | disposition home or self-care (01) ==
LOC: PREOP 05:49
PROVIDERS: ATTEND Orthopaedic Surgery
DX: Z01.812 Encounter for preprocedural laboratory examination (principal); S43.432A Superior glenoid labrum lesion of left shoulder, initial encounter

== ENCOUNTER 2020-02-04 06:05 | Day surgery (SDC) | payer MEDICAID ==
--- NOTE | 2020-01-05 10:18 | HISTORY AND PHYSICAL ---
DATE OF SERVICE: OUTPATIENT ADMISSION DATE OF ADMISSION: 01/14/2020. This will be the outpatient of surgery, outpatient admission, date of service and date of surgery will be 01/14/2020 for left shoulder arthroscopy. HISTORY OF PRESENT ILLNESS: The patient is a 49-year-old female with progressively worsening left shoulder pain and weakness. She has undergone treatment with physical therapy, rest and activity modifications. She reports pain and activity limitations in this shoulder. She reports progressive loss of function and no improvement and therefore has elected to proceed with surgical intervention. REVIEW OF SYSTEMS: No chest pain, no shortness of breath and no dysuria. PAST MEDICAL HISTORY: Anxiety disorder, back pain, depression, hypertension, neck pain, chronic pain, PTSD, pseudoseizures, bipolar disorder and coronary artery disease. PAST SURGICAL HISTORY: Carpal tunnel bilaterally, cervical spine x2, ACL reconstruction, hysterectomy, total knee arthroplasty, heart loop monitor placement and cardiac catheterization. FAMILY HISTORY: Significant for asthma. PRIMARY CARE PROVIDER: [facility]. MEDICATIONS: Atorvastatin, clonazepam, hydrocodone, lisinopril, Paxil, prazosin, tizanidine, trazodone, Vraylar, cetirizine. ALLERGIES: PENICILLIN, PERCOCET, BACTRIM. SOCIAL HISTORY: The patient is a current tobacco user. Denies alcohol use. PHYSICAL EXAMINATION: GENERAL: The patient is well-developed, well-nourished, in no acute distress. HEENT: Normocephalic, atraumatic. Pupils are equal, round, reactive to light. Oropharynx is clear. NECK: Supple, no lymphadenopathy. LUNGS: Clear to auscultation bilaterally. HEART: Regular rate and rhythm. ABDOMEN: Soft, nontender and nondistended. EXTREMITIES: The left shoulder demonstrates forward elevation of 160 degrees, external rotation of 70 degrees and internal rotation to L2. She has no weakness with resisted external rotation. She has a positive [place]'s test. Mildly positive apprehension, Neer's and Hawkin sign. IMPRESSION: Left shoulder SLAP tear with mild adhesive capsulitis. PLAN: Left shoulder arthroscopy, biceps tenotomy and manipulation under anesthesia. Risks, benefits, options, ramifications and recovery have been discussed at length with the patient. She understands and wishes to proceed. Job ID: [id number] DocumentID: [id number] Dictated Date: 01/05/2020 08:50:14 Foreign Languages Department Chair Date: 01/05/2020 09:39:11 Dictated By: MYRTLE BEGUM MD
[~2020-02-04] VITALS: Ht 165.1 cm; Wt 79.5 kg
[2020-02-04] VITALS (12 sets, daily range): BP systolic 129–147; BP diastolic 65–91
[2020-02-04] MEDS ORDERED: CLINDAMYCIN 600 MG/50 ML IVPB 50 ML IV ONE (06:15)
[2020-02-04] MEDS ORDERED: LACTATED RINGERS 1,000 ML IV PRN (06:15)
[2020-02-04] MEDS ORDERED: MIDAZOLAM 2 MG/2 ML (VERSED) VIAL ONE ×2 (06:45→07:06)
[2020-02-04] MEDS ORDERED: LIDOCAINE PF 2% 5 ML (XYLOCAINE) VIAL ONE ×2 (06:45→07:09)
[2020-02-04] MEDS ORDERED: SEVOFLURANE (ULTANE) 15 ML INHAL SOLN ONE ×2 (06:45→07:15)
[2020-02-04] MEDS ORDERED: ROCURONIUM 10 MG/ML 5 ML SYRINGE IV ONE ×2 (06:45→07:14)
[2020-02-04] MEDS ORDERED: MIDAZOLAM 2 MG/2 ML (VERSED) VIAL IVP ONE (06:45)
[2020-02-04] MEDS ORDERED: ONDANSETRON 4 MG/2 ML (SDV) Z0FRAN ONE ×2 (06:45→07:10)
[2020-02-04] MEDS ORDERED: proPOfol 200 MG/20 ML (DIPRIVAN) VIAL IV ONE ×2 (06:45→07:10)
[2020-02-04] MEDS ORDERED: fentaNYL INJECTION 100 MCG/2 ML AMP ONE (07:15)
--- NOTE | 2020-02-04 07:21 | Progress Note-Pre Operative ---
Pre-Operative Progress Note H&P Reviewed The H&P was reviewed, patient examined and no changes noted. Date Seen by Provider: Feb 04, 2020 Time Seen by Provider: 07:09 Date H&P Reviewed: Feb 04, 2020 Time H&P Reviewed: 07:00 Pre-Operative Diagnosis: left shoulder SLAP tear and adhesive capsulitis MYRTLE BEGUM MD Feb 04, 2020 07:21
--- NOTE | 2020-02-04 07:22 | Progress Note-Post Operative ---
Post-Operative Progess Note Surgeon (s)/Photographer Helper (s) Surgeon MYRTLE BEGUM MD Photographer Helper: Artur Amado Pre-Operative Diagnosis left shoulder SLAP tear and adhesive capsulitis Post-Operative Diagnosis left shoulder SLAP tear and adhesive capsulitis Procedure & Operative Findings Date of Procedure 02/04/20 Procedure Performed/Findings left shoulder arthroscopic biceps tenotomy, labral debridement and ARIANNE Anesthesia Type GETA Estimated Blood Loss Estimated blood loss (mL): minimal Specimens/Packing Specimens Removed none Packing: none MYRTLE BEGUM MD Feb 04, 2020 07:22
[2020-02-04] MEDS ORDERED: BUPIVACAINE 0.5% 30 ML (SENSORCAINE) VIAL ONE (07:27)
[2020-02-04] MEDS ORDERED: morphine PF (DURAMORPH) 10 MG/10 ML AMP ONE (07:27)
[2020-02-04] MEDS ORDERED: HYDROcodone /IBUPROFEN (VICOPROFEN) 7.5 MG/ 200 MG TAB PO PRN (07:30)
--- NOTE | 2020-02-04 08:56 | Anesthesia-General Post-Op ---
General Patient Condition Mental Status/LOC: Same as Preop Cardiovascular: Satisfactory Nausea/Vomiting: Absent Respiratory: Satisfactory Pain: Controlled Complications: Absent Post Op Complications Complications None Follow Up Care/Instructions Patient Instructions None needed. Anesthesia/Patient Condition Patient Condition Patient is doing well, no complaints, stable vital signs, no apparent adverse anesthesia problems. No complications reported per nursing. BEVERLEY TRIPP CRNA Feb 04, 2020 08:56
[2020-02-04] MEDS ORDERED: morphine INJ 10 MG/ML 1ML (SYR OR VIAL) ONE (08:57)
[2020-02-04] MEDS ORDERED: morphine INJ 10 MG/ML 1ML (SYR OR VIAL) IVP ONE (09:00)
[2020-02-04] MEDS ORDERED: ONDANSETRON 4 MG/2 ML (SDV) Z0FRAN IVP PRN (09:00)
[2020-02-04] MEDS ORDERED: HYDR-3817 PO (09:54)
[2020-02-04] MEDS ORDERED: HYDROcodone/APAP 7.5 MG/325 MG (LORTAB, LORCET PLUS) TABLET PO PRN (10:15)
[2020-02-04] MEDS ORDERED: HYDROcodone/APAP 7.5 MG/325 MG (LORTAB, LORCET PLUS) TABLET PO ONE (10:19)
--- NOTE | 2020-02-04 14:45 | OPERATIVE REPORT ---
DATE OF SERVICE: 02/04/2020 PREOPERATIVE DIAGNOSES: 1. Left shoulder SLAP tear. 2. Left shoulder adhesive capsulitis. POSTOPERATIVE DIAGNOSES: 1. Left shoulder SLAP tear. 2. Left shoulder adhesive capsulitis. PROCEDURES: 1. Left shoulder arthroscopic biceps tenotomy. 2. Left shoulder arthroscopic labral debridement. 3. Left shoulder manipulation under anesthesia. SURGEON: Taras Begum MD FLYER REPAIRER: Artur Amado, who assisted throughout the procedure and closed the incisions. ANESTHESIA: General endotracheal by Sho Aguilar CRNA. ESTIMATED BLOOD LOSS: Minimal. DRAINS: None. COMPLICATIONS: None. POSTOPERATIVE PLAN: Sling wear for comfort with progressive range of motion as symptoms allow. The patient was transferred to the recovery room awake and in stable condition. STATEMENT OF MEDICAL NECESSITY: The patient is a 49-year-old female with complaints of left shoulder pain, stiffness and loss of function. She had a positive Pickens's maneuver pain with apprehension, relieved with relocation. She tried rest, activity modifications, anti-inflammatories without relief and due to functional impairment and failure to improve with conservative measures, the patient elected to proceed with surgical intervention. Examination under anesthesia revealed loss of approximately 10 degrees of forward elevation and 10 degrees of external rotation pre-manipulation, post-manipulation range of motion was symmetric in all planes. Arthroscopic findings demonstrated type 2 SLAP tear. The rotator cuff was intact throughout the glenoid and humeral head demonstrated no gross chondral abnormalities. The remainder of the labrum was intact. DESCRIPTION OF PROCEDURE: After risks and benefits of procedure were discussed and questions were answered and informed consent was signed and placed on chart, the operative site was confirmed in the preoperative holding area and initialed by the surgeon. The patient was then transferred to the operating room. After adequate levels of general endotracheal anesthetic were obtained, a timeout was called, confirming the operative site. Manipulation was performed and the left upper extremity was gently ranged until forward elevation and external rotation were symmetric to the contralateral side. The left shoulder and upper extremity were then prepped and draped in the usual sterile fashion. The shoulder joint was injected with 20 mL of fluid and standard posterior portal was placed under direct visualization. Anterior portal was created in the interval between biceps, subscapularis and glenoid. The biceps anchor was released and the stump was debrided with a shaver. The shoulder joint was copiously irrigated. The portal sites were closed with 4-0 nylon in simple interrupted fashion. The shoulder was injected with Duramorph. The port sites were infiltrated with plain Marcaine. A soft dressing was applied and the patient was transported to the recovery room awake and in stable condition. Job ID: [id number] DocumentID: [id number] Dictated Date: 02/04/2020 08:20:58 Social Services Designee Date: 02/04/2020 14:44:30 Dictated By: TARAS BEGUM MD
== END 2020-02-04 10:40 | disposition home or self-care (01) ==
LOC: SDC 06:05
PROVIDERS: ATTEND Orthopaedic Surgery
DX: S43.432A Superior glenoid labrum lesion of left shoulder, initial encounter (principal); M75.02 Adhesive capsulitis of left shoulder; I10 Essential (primary) hypertension; F41.9 Anxiety disorder, unspecified; F32.9 Major depressive disorder, single episode, unspecified; F43.10 Post-traumatic stress disorder, unspecified; I25.10 Atherosclerotic heart disease of native coronary artery without angina pectoris; G89.29 Other chronic pain; Z79.899 Other long term (current) drug therapy; Z88.0 Allergy status to penicillin; Z88.2 Allergy status to sulfonamides; Z88.5 Allergy status to narcotic agent; Z86.73 Personal history of transient ischemic attack (TIA), and cerebral infarction without residual deficits; Z90.710 Acquired absence of both cervix and uterus
CPT/HCPCS: 87081

== ENCOUNTER 2020-02-28 23:09 | Emergency (ER) | payer MEDICAID ==
[~2020-02-28] VITALS: Ht 165 cm; Wt 79.5 kg
[~2020-02-28 23:09] MED LIST changes: +HYDR-3817 PO
[2020-02-28] MEDS: NITROGLYCERIN 0.4 MG SL TABS BTL 25'S SL PRN ×2 (23:22→23:30)
--- NOTE | 2020-02-28 23:23 | ED Chest Pain ---
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 Nursing Sepsis Screen: No Definite Risk Source: patient Exam Limitations: no limitations History of Present Illness Date Seen by Provider: Feb 28, 2020 Time Seen by Provider: 23:04 Initial Comments Patient presents ER by private conveyance from home with chief complaint of 30 minutes prior to arrival she was sitting on a couch doing nothing strenuous and she started to experience left-sided substernal chest pain radiating through to her back and having some numbness and tingling radiating up into her left shoulder and left arm. She has had chest pain in the past and has a loop recorder placed by Dr. Samuel. She is never had a heart disease and has no known coronary disease. She has vomited and still has nausea. She is having some sweats earlier. Pain is not worse with exertion, palpation or deep inspiration. No fevers chills cough shortness of breath, diarrhea, loss of sense of taste and/or smell. She is known to PCP Josef Jensen. No primary familial coronary heart history. Her son was born with a left hypoplastic heart. She has no history of coronary disease or stents. She takes meds for hypertension, hyperlipidemia and recently restarted smoking after a 1 month hiatus. She smokes about 1/4 pack cigarettes now. She denies alcohol or recreational drugs. No history of diabetes. Dr. Samuel cardiac catheterization March 2019 demonstrating angiographically normal coronary arteries. Normal global left ventricular systolic function. Normal regional wall motion. Normal left ventricular end-diastolic pressure. Denies a history of aortic dilatation or dissection. No history of pancreatitis or cholecystitis. Only abdominal surgery is a hysterectomy. She has a loop recorder placed after syncopal episodes and chest pain about a year ago. Allergies and Home Medications Allergies Coded Allergies: Penicillins (Verified Allergy, Severe, ANAPHYLAXIS, 02/04/20) oxycodone (Verified Allergy, Intermediate, N/V, MIGRAINES, 02/04/20) Sulfa (Sulfonamide Antibiotics) (Verified Allergy, Mild, RASH, 02/04/20) Home Medications Atorvastatin Calcium 20 Mg Tablet, 20 MG PO DAILY, (Reported) Cariprazine Hydrochloride 3 Mg Capsule, 3 MG PO HS, (Reported) Cetirizine HCl 10 Mg Tablet, 10 MG PO DAILY PRN for CONGESTION, (Reported) Clonazepam 0.5 Mg Tablet, 0.5 MG PO DAILY PRN PRN for ANXIETY, (Reported) Hydrocodone/Acetaminophen 1 Each Tablet, 1 EACH PO Q4H Prescribed by: BASILIO HARVEY on 02/04/20 0954 Hydrocodone/Acetaminophen 1 Each Tablet, 1 EACH PO Q6H PRN for PAIN-BREAKTHROUGH Prescribed by: JOHNATHAN CALDERÓN on 02/29/20 0241 Lisinopril/Hydrochlorothiazide 1 Each Tablet, 1 EACH PO DAILY, (Reported) Ondansetron 4 Mg Tab.rapdis, 4 MG PO Q6H PRN for NAUSEA/VOMITING Prescribed by: JOHNATHAN CALDERÓN on 02/29/20 0240 Paroxetine HCl 20 Mg Tablet, 20 MG PO DAILY, (Reported) Trazodone HCl 100 Mg Tablet, 100-200 MG PO HS PRN for INSOMNIA, (Reported) Varenicline Tartrate 1 Mg Tablet, 1 MG PO BID, (Reported) Patient Home Medication List Home Medication List Reviewed: Yes Review of Systems Review of Systems Constitutional: No chills, No diaphoresis EENTM: No Blurred Vision, No Double Vision Respiratory: Denies Cough, Denies Orthopnea Cardiovascular: See HPI, Chest Pain; Denies Edema, Denies Lightheadedness Gastrointestinal: Denies Abdomen Distended, Denies Abdominal Pain Genitourinary: Denies Burning, Denies Discharge Musculoskeletal: No back pain, No joint pain Skin: No change in color, No pruritus, No rash Psychiatric/Neurological: Denies Anxiety, Denies Depressed, Denies Headache All Other Systems Reviewed Negative Unless Noted: Yes Past Twdfmai-Pppmhe-Lrujli Hx Patient Social History Alcohol Use: Denies Use Recreational Drug Use: No Smoking Status: Current Everyday Smoker Type Used: Cigarettes (Quarter pack per day) 2nd Hand Smoke Exposure: Yes Recent Foreign Travel: No Contact w/Someone Who Travel: No Recent Infectious Disease Expo: No Recent Hopitalizations: No Immunizations Up To Date Tetanus Booster (TDap): Less than 5yrs Date of Influenza Vaccine: Mar 22, 2019 Seasonal Allergies Seasonal Allergies: No Past Medical History Surgeries: Yes (L TKR, NECK FUSION x2, LOOP RECORDER, R KNEE SCOPE, OSMAN CTR, WRIST) Hysterectomy, Joint Replacement, Orthopedic Respiratory: No Currently Using CPAP: No Currently Using BIPAP: No Cardiac: Yes Angina, High Cholesterol, Hypertension, Syncope Neurological: Yes (LAST SEIZURE FROM ANXIETY-6 MONTHS AGO) Seizure Disorder, TIA Female Reproductive Disorders: Denies 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, 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 Sexually Transmitted Disease: No HIV/AIDS: No Genitourinary: No Gastrointestinal: No Musculoskeletal: Yes (CHRONIC NECK AND BACK PAIN ) Degenerate Disk Disease, Chronic Back Pain Endocrine: No HEENT: Yes (GLASSES) Loss of Vision: Denies Hearing Impairment: Denies Cancer: No Psychosocial: Yes Anxiety Integumentary: No Blood Disorders: No Adverse Reaction/Blood Tranf: No (N/A) Family Medical History No Pertinent Family Hx Physical Exam Vital Signs Vital Signs - First Documented 02/28/20 02/28/20 23:13 23:16 Pulse 84 B/P (MAP) 176/105 (128) O2 Delivery Room Air Capillary Refill : Less Than 3 Seconds Height, Weight, BMI Height: 5'5.00" Weight: 178lbs. 0.0oz. [id number]; 29.00 BMI Method:Stated General Appearance: Anxious, Moderate Distress HEENT: PERRL/EOMI, Pharynx Normal, Moist Mucous Membranes Neck: Full Range of Motion, Normal Inspection, Non Tender Respiratory: Chest Non Tender, Lungs Clear, Normal Breath Sounds, No Accessory Muscle Use, No Respiratory Distress Cardiovascular: Regular Rate, Rhythm, No Edema, Normal Peripheral Pulses Gastrointestinal: Normal Bowel Sounds, Non Tender, Soft Extremity: Normal Capillary Refill, Normal Inspection, Normal Range of Motion Neurologic/Psychiatric: Alert, Oriented x3 Skin: Normal Color, Warm/Dry Progress/Results/Core Measures Results/Orders Lab Results Laboratory Tests Test 02/28/20 23:18 02/29/20 01:54 Range/Units White Blood Count 10.2 4.3-11.0 10^3/uL Red Blood Count 4.82 3.80-5.11 10^6/uL Hemoglobin 15.5 11.5-16.0 g/dL Hematocrit 46 35-52 % Mean Corpuscular Volume 95 80-99 fL Mean Corpuscular Hemoglobin 32 25-34 pg Mean Corpuscular Hemoglobin Concent 34 32-36 g/dL Red Cell Distribution Width 14.2 10.0-14.5 % Platelet Count 370 130-400 10^3/uL Mean Platelet Volume 8.9 L 9.0-12.2 fL Immature Granulocyte % (Auto) 0 % Neutrophils (%) (Auto) 59 42-75 % Lymphocytes (%) (Auto) 32 12-44 % Monocytes (%) (Auto) 7 0-12 % Eosinophils (%) (Auto) 2 0-10 % Basophils (%) (Auto) 0 0-10 % Neutrophils # (Auto) 6.0 1.8-7.8 10^3/uL Lymphocytes # (Auto) 3.2 1.0-4.0 10^3/uL Monocytes # (Auto) 0.7 0.0-1.0 10^3/uL Eosinophils # (Auto) 0.2 0.0-0.3 10^3/uL Basophils # (Auto) 0.0 0.0-0.1 10^3/uL Immature Granulocyte # (Auto) 0.0 0.0-0.1 10^3/uL Prothrombin Time 12.0 L 12.2-14.7 SEC INR Comment 0.9 0.8-1.4 Activated Partial Thromboplast Time 24 24-35 SEC D-Dimer 0.54 H 0.00-0.49 UG/ML Sodium Level 142 135-145 MMOL/L Potassium Level 3.7 3.6-5.0 MMOL/L Chloride Level 105 98-107 MMOL/L Carbon Dioxide Level 25 21-32 MMOL/L Anion Gap 12 5-14 MMOL/L Blood Urea Nitrogen 21 H 7-18 MG/DL Creatinine 0.84 0.60-1.30 MG/DL Estimat Glomerular Filtration Rate > 60 BUN/Creatinine Ratio 25 Glucose Level 109 H 70-105 MG/DL Calcium Level 9.5 8.5-10.1 MG/DL Corrected Calcium 9.3 8.5-10.1 MG/DL Magnesium Level 2.3 1.6-2.4 MG/DL Total Bilirubin 0.2 0.1-1.0 MG/DL Aspartate Amino Transf (AST/SGOT) 23 5-34 U/L Alanine Aminotransferase (ALT/SGPT) 34 0-55 U/L Alkaline Phosphatase 86 40-136 U/L Myoglobin 17.1 10.0-92.0 NG/ML Troponin I < 0.028 < 0.028 <0.028 NG/ML Total Protein 7.3 6.4-8.2 GM/DL Albumin 4.2 3.2-4.5 GM/DL Lipase 91 H 8-78 U/L Triglycerides Level 136 <150 MG/DL Cholesterol Level 209 H < 200 MG/DL LDL Cholesterol Direct 160 H 1-129 MG/DL VLDL Cholesterol 27 5-40 MG/DL HDL Cholesterol 52 40-60 MG/DL My Orders Orders - JOHNATHAN CALDERÓN Cbc With Automated Diff (02/28/20 23:17) Magnesium (02/28/20 23:17) Chest 1 View, Ap/Pa Only (02/28/20 23:17) Ekg Tracing (02/28/20 23:17) Comprehensive Metabolic Panel (02/28/20 23:17) Myoglobin Serum (02/28/20 23:17) Protime With Inr (02/28/20 23:17) Partial Thromboplastin Time (02/28/20 23:17) O2 (02/28/20 23:17) Monitor-Rhythm Ecg Trace Only (02/28/20 23:17) Lipid Panel (02/29/20 06:00) Ed Iv/Invasive Line Start (02/28/20 23:17) Lipase (02/28/20 23:17) Fibrin Degradation Products (02/28/20 23:17) Troponin I (02/28/20 23:17) Nitroglycerin 0.4 Mg Btl 25's (Nitrostat (02/28/20 23:30) Aspirin Chewable Tablet (Baby Aspirin Ch (02/28/20 23:30) Lidocaine 2% Viscous 15 Ml (Xylocaine Vi (02/29/20 00:00) Antacid Suspension (Mylanta Suspension (02/29/20 00:00) Morphine Injection (Morphine Injection (02/29/20 00:50) Troponin I (02/29/20 02:00) Medications Given in ED Current Medications Medications Dose Ordered Sig/Ericka Route Start Time Stop Time Status Last Admin Dose Admin Al Hydrox/Mg Hydrox/Simethicone 30 ml ONCE ONCE PO 02/29/20 00:00 02/29/20 00:01 DC 02/29/20 00:09 30 ML Aspirin 324 mg ONCE ONCE PO 02/28/20 23:30 02/28/20 23:31 DC 02/28/20 23:21 324 MG Lidocaine HCl 15 ml ONCE ONCE PO 02/29/20 00:00 02/29/20 00:01 DC 02/29/20 00:09 15 ML Nitroglycerin 0.4 mg UD PRN SL 02/28/20 23:30 02/28/20 23:30 0.4 MG Vital Signs/I&O 02/28/20 02/28/20 23:13 23:16 Pulse 84 B/P (MAP) 176/105 (128) O2 Delivery Room Air Blood Pressure Mean: 128 Progress Progress Note #1: Time: 23:23 Progress Note We will give her aspirin 324 mg to chew and swallow. Initial EKG shows normal sinus rhythm. Plan to get labs. Her story is concerning and she does have some risk factors of smoking, hypertension, hyperlipidemia as well as being postmenopausal. Will trial nitroglycerin. 2330: Pain went to a 4-5 out of 10 down from 6 out of 10 after a single dose of nitroglycerin. Her blood pressure came down from 150 systolic to 137 systolic. Will trial a second dose. If her initial troponin is negative and 30 minutes out I suspect it will be she would still have a heart score of 4 points. We will discussed this with cardiology when the lab comes back. Progress Note #2: Time: 23:38 Progress Note After a second dose of nitroglycerin her pain is still 4 out of 10. We are going to trial a GI cocktail. Progress Note #3: Time: 02:44 Progress Note After 2 mg of morphine the patient rates her pain as a 1 out of 10. She has s uffered no material deterioration during her ER stay and is ready to go home. We have discussed that we have high suspicion for her gallbladder and have recommended she get an ultrasound on Sunday and follow-up with the general surgeon, Dr. Preston. Alternatively she can follow-up with her primary care provider. We will put her on omeprazole or pantoprazole and encourage antacids as necessary. We will provide her with some ondansetron and hydrocodone. Initial ECG Impression Date: Feb 28, 2020 Initial ECG Impression Time: 23:09 Initial ECG Rate: 84 Initial ECG Rhythm: Normal Sinus Initial ECG Intervals: Normal Initial ECG Impression: Normal Initial ECG Comparisson: Unchanged Comment Normal sinus rhythm without clinically relevant ST elevation or depression Diagnostic Imaging Diagonstic Imaging: Xray Plain Films/CT/US/NM/MRI: chest Comments Hardware in the C-spine seen. No acute cardiopulmonary process noted. Implantable loop cardiac rehabilitation specialist noted. Reviewed: Reviewed by Me Consults : Consulting Physician: Ana Maria MALIN MD Consults Notes Discussed the case with cardiology and given the recent clean cath he agrees with a 3-hour delta troponin and follow-up with primary care for further evaluation of gallbladder and chest pain. Repeat troponin at 0200 Departure Impression Primary Impression: Chest pain Qualified Codes: R07.9 - Chest pain, unspecified Additional Impression: Biliary colic symptom Disposition: HOME, SELF-CARE Condition: Improved Departure-Patient Inst. Decision time for Depature: 02:31 Referrals: [facility] [place] Primary Care Physician CIPRIANO PRESTON DO Patient Instructions: Chest Pain That Is Not Caused by the Heart (DC), Gallbladder Diet Add. Discharge Instructions: I do not suspect your chest pain today is from your heart. However it could be a referred pain from your gallbladder. You may follow-up with your primary care doctor or with Dr. Preston the general surgeon for further evaluation and characterization of your symptoms. Sunday morning you can call and set up an ultrasound appointment and will have the results forwarded to your doctor and Dr. Preston. Return to the ER for intractable pain or nausea. Ondansetron 1 tablet every 6 hours under the tongue as necessary for nausea and/or vomiting. Omeprazole or pantoprazole 40 mg daily to reduce acid. Tums, Rolaids, Maalox etc. as necessary for pain. You may also use hydrocodone 1 to 1-1/2 tablets every 6 hours as necessary for severe breakthrough pain. All discharge instructions reviewed with patient and/or family. Voiced understanding. Scripts Hydrocodone/Acetaminophen (Hydrocodone-Acetamin 5-325 mg) 1 Each Tablet 1 EACH PO Q6H PRN for PAIN-BREAKTHROUGH, #8 TAB 0 Refills Prov: JOHNATHAN CALDERÓN 02/29/20 Ondansetron (Ondansetron Odt) 4 Mg Tab.rapdis 4 MG PO Q6H PRN for NAUSEA/VOMITING, #8 TAB 0 Refills Prov: JOHNATHAN CALDERÓN 02/29/20 Work/School Note: Work Release Form Date Seen in the Emergency Department: Feb 29, 2020 Return to Work: Mar 02, 2020 Restrictions: No Restrictions Copy Copies To 1: ALETA MOODY DO; CIPRIANO PRESTON DO JOHNATHAN CALDERÓN Feb 28, 2020 23:23
[2020-02-28 23:27] LABS: BASOPHILS % (AUTO) 0 % (0-10); EOSINOPHILS # (AUTO) 0.2 10^3/uL (0.0-0.3); EOSINOPHILS % (AUTO) 2 % (0-10); HEMATOCRIT 46 % (35-52); HEMOGLOBIN 15.5 g/dL (11.5-16.0); LYMPHOCYTES # (AUTO) 3.2 10^3/uL (1.0-4.0); LYMPHOCYTES % (AUTO) 32 % (12-44); MEAN CORPUSCULAR HEMOGLOBIN 32 pg (25-34); MEAN CORPUSCULAR HGB CONC 34 g/dL (32-36); MEAN CORPUSCULAR VOLUME 95 fL (80-99); MEAN PLATELET VOLUME 8.9 fL (9.0-12.2); MONOCYTES # (AUTO) 0.7 10^3/uL (0.0-1.0); MONOCYTES % (AUTO) 7 % (0-12); NEUTROPHILS % (AUTO) 59 % (42-75); PLATELET COUNT 370 10^3/uL (130-400); WHITE BLOOD COUNT 10.2 10^3/uL (4.3-11.0)
[2020-02-28] MEDS ORDERED: ASPIRIN 81 MG CHEW (CHILDREN'S ASA) PO ONE (23:30)
[2020-02-28 23:37] LABS: ALBUMIN 4.2 GM/DL (3.2-4.5)
[2020-02-28 23:38] LABS: CHLORIDE 105 MMOL/L (98-107); POTASSIUM 3.7 MMOL/L (3.6-5.0); SODIUM 142 MMOL/L (135-145)
[2020-02-28 23:39] LABS: CALCIUM 9.5 MG/DL (8.5-10.1)
[2020-02-28 23:40] LABS: GLUCOSE 109 MG/DL (70-105); INR 0.9 (0.8-1.4); TOTAL PROTEIN 7.3 GM/DL (6.4-8.2)
[2020-02-28 23:41] LABS: CARBON DIOXIDE 25 MMOL/L (21-32)
[2020-02-28 23:42] LABS: BILIRUBIN,TOTAL 0.2 MG/DL (0.1-1.0)
[2020-02-28 23:44] LABS: ALKALINE PHOSPHATASE 86 U/L (40-136); CREATININE SERUM 0.84 MG/DL (0.60-1.30); GFR ESTIMATED > 60
[2020-02-28 23:45] LABS: BUN/CREATININE RATIO 25
[2020-02-28 23:47] LABS: ALANINE AMINOTRANSFERASE 34 U/L (0-55); MAGNESIUM 2.3 MG/DL (1.6-2.4)
[2020-02-28 23:48] LABS: LIPASE 91 U/L (8-78)
[2020-02-29] MEDS ORDERED: LIDOCAINE 2% VISCOUS 15 ML UDC PO ONE
[2020-02-29] MEDS ORDERED: ANTACID SUSP 30 ML UDC (MYLANTA) PO ONE
[2020-02-29] MEDS ORDERED: morphine INJ 10 MG/ML 1ML (SYR OR VIAL) IVP STA (00:50)
[2020-02-29 02:14] LABS: TRIGLYCERIDES 136 MG/DL (<150); VLDL CHOLESTEROL 27 MG/DL (5-40)
[2020-02-29 02:19] LABS: CHOLESTEROL 209 MG/DL (< 200)
[2020-02-29 02:20] LABS: HDL CHOLESTEROL 52 MG/DL (40-60)
[2020-02-29] MEDS ORDERED: ACHD5005 PO (02:40)
[2020-02-29] MEDS ORDERED: ONDA4TAB11 PO (02:40)
[2020-02-29 02:50] VITALS: BP 140/87
--- NOTE | 2020-02-29 07:09 | Diagnostic Imaging Report ---
EXAM: Portable erect AP chest at 11:45 PM INDICATION: Chest pain FINDINGS: The heart size is within normal limits and stable when compared to 10/12/2017. The lungs are clear. There is no evidence for failure, pneumonia, or for a pleural effusion. The mediastinum is not widened. The osseous structures are intact. The loop recorder device overlying the left thorax and the orthopedic plate and screw fixation device overlying the lower cervical spine seen previously are again evident and no different. IMPRESSION: There is no evidence for active disease. Dictated by: Dictated on workstation # [id number]
== END 2020-02-29 02:50 | disposition home or self-care (01) ==
LOC: EDUNIT# 23:09 → ER 23:12
DX: R07.9 Chest pain, unspecified (principal); K80.50 Calculus of bile duct without cholangitis or cholecystitis without obstruction; G40.909 Epilepsy, unspecified, not intractable, without status epilepticus; E78.00 Pure hypercholesterolemia, unspecified; I10 Essential (primary) hypertension; G89.29 Other chronic pain; M54.9 Dorsalgia, unspecified; F41.9 Anxiety disorder, unspecified; F17.210 Nicotine dependence, cigarettes, uncomplicated; Z88.0 Allergy status to penicillin; Z88.2 Allergy status to sulfonamides; Z88.5 Allergy status to narcotic agent; Z86.73 Personal history of transient ischemic attack (TIA), and cerebral infarction without residual deficits; Z79.891 Long term (current) use of opiate analgesic
CPT/HCPCS: 36415; 71045; 80053; 80061; 83690; 83735; 83874; 84484; 85025; 85379; 85610; 85730; 93005; 93041

== ENCOUNTER → 2020-03-02 | Outpatient (CLI) | payer MEDICAID ==
[~2020-03-02] MED LIST changes: +ONDA4TAB11 PO
--- NOTE | 2020-03-02 10:45 | Diagnostic Imaging Report ---
PROCEDURE: US Gallbladder. TECHNIQUE: Multiple real-time grayscale images were obtained over the right upper quadrant in various projections. INDICATION: Nausea and vomiting, abdominal pain. COMPARISON: There are no prior studies available for comparison. FINDINGS: There is no evidence for cholelithiasis or acute cholecystitis and the common bile duct is not dilated. The liver does not appear to be enlarged. There is no focal mass involving the liver and the biliary tree is not abnormally distended. The right kidney, the aorta and the inferior vena cava are unremarkable. The pancreas is obscured by bowel gas. IMPRESSION: 1. There is no evidence for an acute abnormality of the right upper quadrant. 2. If clinical concern regarding an underlying abnormality of the gallbladder persists and further imaging is desired, then MRI would be recommended. Dictated by: Dictated on workstation # [id number]
== END ==
LOC: RAD 08:53
PROVIDERS: ATTEND Emergency Medicine
DX: R11.2 Nausea with vomiting, unspecified (principal); R10.9 Unspecified abdominal pain
CPT/HCPCS: 76705

== ENCOUNTER → 2020-03-29 | Outpatient (CLI) | payer MEDICAID ==
[~2020-03-29] MED LIST changes: +CATHETER FLUSH 10 ML SYR IV PRN; +TIZA-169 PO; -TIZA2TAB7 PO
--- NOTE | 2020-03-29 15:13 | Diagnostic Imaging Report ---
INDICATION: Epigastric pain. EXAMINATION: Hepatobiliary scan. TECHNIQUE: 5.2 mCi of technetium 99m Choletec was given intravenously for the scan. 8 ounces of Ensure was given orally for the ejection fraction. FINDINGS: There is homogeneous uptake of isotope throughout the liver. The cystic duct and common duct are both patent. The gallbladder ejection fraction was calculated at 95%. IMPRESSION: Normal hepatobiliary scan. Dictated by: Dictated on workstation # [id number]
== END ==
LOC: CARD 12:45
PROVIDERS: ATTEND Surgery
DX: R10.13 Epigastric pain (principal)
CPT/HCPCS: 78227; A9537

== ENCOUNTER 2020-05-13 05:35 | Outpatient (CLI) | payer MEDICAID ==
[~2020-05-13] VITALS: Ht 165.1 cm; Wt 80.5 kg
[~2020-05-13 05:35] MED LIST changes: -CATHETER FLUSH 10 ML SYR IV PRN
== END 2020-05-13 13:09 | disposition home or self-care (01) ==
LOC: PREOP 05:35 → EDSTATUS 10:00 → PREOP 13:09
PROVIDERS: ATTEND Surgery
DX: Z01.818 Encounter for other preprocedural examination (principal)

== ENCOUNTER 2020-05-20 05:59 | Day surgery (SDC) | payer MEDICAID ==
[2020-05-20] VITALS (10 sets, daily range): BP systolic 108–147; BP diastolic 65–89
[~2020-05-20] VITALS: Ht 165.1 cm; Wt 80.5 kg
[2020-05-20] MEDS ORDERED: MIDAZOLAM 2 MG/2 ML (VERSED) VIAL ONE ×2 (06:43→07:03)
[2020-05-20] MEDS ORDERED: CLINDAMYCIN 600 MG/50 ML IVPB 50 ML IV ONE ×2 (06:43→06:45)
[2020-05-20] MEDS: LACTATED RINGERS 1,000 ML IV PRN ×2 (06:53→08:59)
[2020-05-20 07:02] LABS: HEMOGLOBIN 16.4 g/dL (11.5-16.0); MEAN PLATELET VOLUME 9.2 fL (9.0-12.2); WHITE BLOOD COUNT 9.5 10^3/uL (4.3-11.0)
[2020-05-20] MEDS ORDERED: NEOSTIGMINE 3 MG/3 ML VIAL ONE (07:03)
[2020-05-20] MEDS ORDERED: GLYCOPYRROLATE 0.2 MG/ML (ROBINUL) 2 ML VIAL ONE (07:03)
[2020-05-20] MEDS ORDERED: proPOfol 200 MG/20 ML (DIPRIVAN) VIAL IV ONE (07:03)
[2020-05-20] MEDS ORDERED: ONDANSETRON 4 MG/2 ML (SDV) Z0FRAN ONE ×2 (07:03→09:15)
[2020-05-20] MEDS ORDERED: ROCURONIUM 10 MG/ML 5 ML SYRINGE IV ONE (07:03)
[2020-05-20] MEDS ORDERED: SEVOFLURANE (ULTANE) 15 ML INHAL SOLN ONE (07:03)
[2020-05-20] MEDS ORDERED: LIDOCAINE PF 2% 5 ML (XYLOCAINE) VIAL ONE (07:03)
[2020-05-20] MEDS ORDERED: fentaNYL INJ 100 MCG/2 ML AMP ONE (07:03)
[2020-05-20] MEDS ORDERED: LIDOCAINE/EPI 1%-1:100,000 (XYLOCAINE) 20ML ONE (07:23)
--- NOTE | 2020-05-20 07:50 | Progress Note-Pre Operative ---
Pre-Operative Progress Note H&P Reviewed The H&P was reviewed, patient examined and no changes noted. Date Seen by Provider: May 20, 2020 Time Seen by Provider: 07:40 Date H&P Reviewed: May 20, 2020 Time H&P Reviewed: 07:40 Pre-Operative Diagnosis: epigastric abd pain, biliary dyskinesia CIPRIANO PRESTON DO May 20, 2020 07:50
[2020-05-20] MEDS ORDERED: LORA-404 PO (08:22)
--- NOTE | 2020-05-20 08:57 | Progress Note-Post Operative ---
Post-Operative Progess Note Surgeon (s)/Family Service Counselor (s) Surgeon CIPRIANO PRESTON DO Family Service Counselor: Dr. Yo to assist in retraction dissection and closure. Pre-Operative Diagnosis epigastric abd pain, biliary dyskinesia Post-Operative Diagnosis same Procedure & Operative Findings Date of Procedure 05/20/20 Procedure Performed/Findings PROCEDURE: Laparoscopic cholecystectomy with intraoperative cholangiogram. COMPLICATIONS: None. PROCEDURE: The patient was taken to the operating suite and was prepped and draped in sterile fashion. A surgical pause was performed. Just superior to the umbilicus, a 12 mm incision was made. Dissection was taken down to the fascia, which was then scored and grasped with a Perri and the abdomen was then entered. A 0 Vicryl suture was placed in a afetae-es-kvcem fashion and a Booker trocar was placed and secured. Pneumoperitoneum was achieved. A 5mm trochar place in the subxyphoid and 2 in the right upper quadrant. The gallbladder was then grasped and elevated. Multiple adhesions taken down. The cystic duct, and cystic artery were then dissected out. Clip was placed on the distal portion of the cystic duct which was then partially transected. An arrow catheter was inserted into the duct. The cholangiogram was then performed. No filing defects and contrast made its way into the duodenum. Catheter removed. Clips were placed on proximal portion of the cystic duct and then the duct was then transected. Clips were placed along the proximal and distal portion of the cystic artery which was then transected. Hook cautery was used to dissect the gallbladder from the gallbladder fossa achieving hemostasis. The gallbladder was placed in an Endobag and removed through the 12 mm trocar site. The abdomen was then reinspected. Copious amounts of irrigation were used to irrigate the abdomen and there were no signs of active bleeding. Hemostasis had been achieved. The 12 mm fascial defect was then closed with 0 Vicryl suture that had been placed in a [id number] fashion. The abdomen was then desufflated, the trocars were removed. The abdomen was then washed and dried. The skin was then closed using 4-0 Monocryl in a subcuticular fashion. The abdomen was washed and dried and Skin Affix was place over incisions. Patient tolerated the procedure well without any complications and was taken to the recovery room in stable condition. Anesthesia Type general Estimated Blood Loss Estimated blood loss (mL): minimal Specimens/Packing Specimens Removed gallbladder CIPRIANO PRESTON DO May 20, 2020 08:57
[2020-05-20] MEDS ORDERED: ACHD5005 PO (08:58)
[2020-05-20] MEDS ORDERED: DOCU-143 PO (08:58)
--- NOTE | 2020-05-20 09:00 | Discharge Inst-Simple/Standard ---
Discharge Inst-Standard Discharge Medications New, Converted or Re-Newed RX: RX on Chart Patient Instructions/Follow Up Plan of Care/Instructions/FU: 2-3 weeks Veronica Activity as Tolerated: No Discharge Diet: Regular Diet Other Inst to Patient Follow up Appt: Make appointment for 2-3 weeks Veronica. Instructions: No lifting greater than 10 pounds. No strenuous activity. May shower in 24 hours, no tub bath or soaking. Use incentive spirometer at home as directed. No Smoking Skin/Wound Care: You have special glue over incision, it will fall off on it's own. Symptoms to Report: Appetite Changes, Extremity Discoloration, Numbness/Tingling, Swelling Increased, Bleeding Excessive, Eyesight Changes, Pain Increased, Urine Color Change, Constipation(Persistent), Fever over 101 degree F, Pain/Pressure in chest, Urinating Difficulty, Cough Up/Vomit Blood, Heart Beat Irreg/Pounding, Pain/Pressure in jaw, Vaginal Bleeding Increase, Cramps in feet or legs, Lightheadedness, Pain/Pressure in shoulder, Diarrhea(Persistent), Memory Changes Suddenly, Questions/Concerns, Weight gain consecutive days, Dizziness/Fainting, Nausea/Vomiting, Shortness of Breath, Weight gain over 2 pounds. If eyes or skin turn yellow notify physician. If questions or concerns contact your physician Or seek help at emergency department. CIPRIANO PRESTON DO May 20, 2020 09:00
[2020-05-20] MEDS ORDERED: HYDROmorphone 2 MG/ML VIAL (DILAUDID) ONE (09:21)
[2020-05-20] MEDS ORDERED: HYDROmorphone 2 MG/ML VIAL (DILAUDID) IV ONE (09:30)
[2020-05-20] MEDS ORDERED: morphine INJ 10 MG/ML 1ML (SYR OR VIAL) IVP ONE (09:30)
[2020-05-20] MEDS: ONDANSETRON 4 MG/2 ML (SDV) Z0FRAN IVP PRN ×2 (09:31→09:40)
[2020-05-20] MEDS ORDERED: PHENYLEPHRINE 100 MCG/ML 10 ML (ANESTHESIA) SYR ONE (09:33)
[2020-05-20] MEDS ORDERED: HYDROcodone/APAP 5 MG/325 MG (LORTAB) TAB ONE (10:08)
[2020-05-20] MEDS ORDERED: HYDROcodone/APAP 5 MG/325 MG (LORTAB) TAB PO ONE (10:15)
--- NOTE | 2020-05-20 11:49 | Diagnostic Imaging Report ---
INDICATION: Epigastric pain. COMPARISON: None Total fluoroscopy time: 13.4 seconds Total number of fluoroscopic images saved: 79 FINDINGS: Fluoroscopic guidance was provided during intraoperative cholangiogram. Injected contrast is seen within the left and right biliary ducts as well as the common bile duct. Small rounded filling defects are also noted and may be on the basis of injected air bubbles. Choledocholithiasis is not entirely excluded. Contrast empties into the small bowel, as expected. Please note, interpreting radiologist was not present during the procedure. IMPRESSION: 1. Fluoroscopic guidance provided intraoperatively as above. Dictated by: Dictated on workstation # [id number]
--- NOTE | 2020-05-20 12:58 | Anesthesia-General Post-Op ---
General Patient Condition Mental Status/LOC: Same as Preop Cardiovascular: Satisfactory Nausea/Vomiting: Absent Respiratory: Satisfactory Pain: Controlled Complications: Absent Post Op Complications Complications None Follow Up Care/Instructions Patient Instructions None needed. Anesthesia/Patient Condition Patient Condition Patient was seen this morning after the procedure and she was doing well, no complaints, stable vital signs, no apparent adverse anesthesia problems. SHAWANDA SEYMOUR DO May 20, 2020 12:58
== END 2020-05-20 11:05 | disposition home or self-care (01) ==
LOC: SDC 05:59
PROVIDERS: ATTEND Surgery
DX: K81.1 Chronic cholecystitis (principal); K82.8 Other specified diseases of gallbladder; I10 Essential (primary) hypertension; I20.9 Angina pectoris, unspecified; F41.9 Anxiety disorder, unspecified; M19.90 Unspecified osteoarthritis, unspecified site; G89.4 Chronic pain syndrome; F17.210 Nicotine dependence, cigarettes, uncomplicated; E66.9 Obesity, unspecified; Z68.29 Body mass index [BMI] 29.0-29.9, adult; Z79.899 Other long term (current) drug therapy; Z88.0 Allergy status to penicillin; Z88.2 Allergy status to sulfonamides; Z88.5 Allergy status to narcotic agent; Z86.73 Personal history of transient ischemic attack (TIA), and cerebral infarction without residual deficits
CPT/HCPCS: 36415; 76000; 85027; 87081

== ENCOUNTER 2020-05-23 11:37 | Emergency (ER) | payer MEDICAID ==
[~2020-05-23] VITALS: Ht 165.1 cm; Wt 81.6 kg
[~2020-05-23 11:37] MED LIST changes: +DOCU-143 PO; +LORA-404 PO
--- NOTE | 2020-05-23 11:49 | ED Abdominal Pain ---
General Stated Complaint: POST CHOLECYSTECOMY/INCISION RED/DRAINAGE Source of Information: Patient Exam Limitations: No Limitations History of Present Illness Date Seen by Provider: May 23, 2020 Time Seen by Provider: 11:40 Initial Comments To ER with reports of fevers chills and possibly an infected incision. She had a laparoscopic cholecystectomy done 3 days ago. She was feeling well the first 2 days, developed nausea fevers and chills. Timing/Duration: 1-2 Days Severity/Quality: Cramping Location: Other (Erythema near incision) Radiation: No Radiation Activities at Onset: None Associated Symptoms: Nausea/Vomiting Allergies and Home Medications Allergies Coded Allergies: Penicillins (Verified Allergy, Severe, ANAPHYLAXIS, 02/04/20) oxycodone (Verified Allergy, Intermediate, N/V, MIGRAINES, 02/04/20) Sulfa (Sulfonamide Antibiotics) (Verified Allergy, Mild, RASH, 02/04/20) Home Medications Atorvastatin Calcium 20 Mg Tablet, 20 MG PO DAILY, (Reported) Cariprazine Hydrochloride 3 Mg Capsule, 3 MG PO HS, (Reported) Cetirizine HCl 10 Mg Tablet, 10 MG PO DAILY PRN for CONGESTION, (Reported) Clonazepam 0.5 Mg Tablet, 0.5 MG PO DAILY PRN PRN for ANXIETY, (Reported) Docusate Sodium 100 Mg Capsule, 100 MG PO BID Prescribed by: CIPRIANO MARTIN on 05/20/20 0858 Hydrocodone/Acetaminophen 1 Each Tablet, 1 EACH PO Q4H PRN for PAIN-MODERATE (5- 7) Prescribed by: CIPRIANO MARTIN on 05/20/20 0858 Lisinopril/Hydrochlorothiazide 1 Each Tablet, 1 EACH PO DAILY, (Reported) Paroxetine HCl 20 Mg Tablet, 30 MG PO DAILY, (Reported) Trazodone HCl 100 Mg Tablet, 100-200 MG PO HS PRN for INSOMNIA, (Reported) Varenicline Tartrate 1 Mg Tablet, 1 MG PO BID, (Reported) Patient Home Medication List Home Medication List Reviewed: Yes Review of Systems Review of Systems Constitutional: see HPI, chills, fever EENTM: No Symptoms Reported Respiratory: No Symptoms Reported Cardiovascular: No Symptoms Reported Gastrointestinal: No Symptoms Reported Genitourinary: No Symptoms Reported Musculoskeletal: no symptoms reported Skin: see HPI Psychiatric/Neurological: No Symptoms Reported Endocrine: No Symptoms Reported Hematologic/Lymphatic: No Symptoms Reported Past Quzexvj-Exotqt-Dgycto Hx Patient Social History Type Used: Cigarettes Former Smoker, Quit: Jan 06, 2020 2nd Hand Smoke Exposure: Yes Recent Hopitalizations: Yes (RIGHT KNEE SURGERY END OF FEBRUARY 2020) Immunizations Up To Date Tetanus Booster (TDap): Less than 5yrs Date of Influenza Vaccine: Mar 22, 2019 Seasonal Allergies Seasonal Allergies: Yes Past Medical History Surgeries: Yes (L TKR, NECK FUSION x2, LOOP RECORDER, R KNEE SCOPE, OSMAN CTR, WRIST) Hysterectomy, Joint Replacement, Orthopedic Respiratory: No Currently Using CPAP: No Currently Using BIPAP: No Cardiac: Yes Angina, High Cholesterol, Hypertension, Syncope Neurological: Yes Seizure Disorder, TIA Female 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 0.0oz. [id number]; 29.53 BMI Method:Stated General Appearance: WD/WN, no apparent distress Neck: non-tender Respiratory: lungs clear, normal breath sounds, no respiratory distress, no accessory muscle use Cardiovascular: regular rate, rhythm, no murmur Gastrointestinal: normal bowel sounds, soft Neurologic/Psychiatric: alert, normal mood/affect, oriented x 3 Skin: normal color, warm/dry, other (There is some erythema around one of the incisions. On the bedside ultrasound I am unable to identify any well-formed fluid collection. This appears to be more cellulitis.) Focused Exam Lactate Level 05/23/20 11:54: Lactic Acid Level 1.24 Lactic Acid Level Laboratory Tests Test 05/23/20 11:54 Lactic Acid Level 1.24 MMOL/L (0.50-2.00) Progress/Results/Core Measures Results/Orders Lab Results Laboratory Tests Test 05/23/20 11:54 Range/Units White Blood Count 12.2 H 4.3-11.0 10^3/uL Red Blood Count 5.70 H 3.80-5.11 10^6/uL Hemoglobin 18.2 H 11.5-16.0 g/dL Hematocrit 54 H 35-52 % Mean Corpuscular Volume 94 80-99 fL Mean Corpuscular Hemoglobin 32 25-34 pg Mean Corpuscular Hemoglobin Concent 34 32-36 g/dL Red Cell Distribution Width 13.1 10.0-14.5 % Platelet Count 371 130-400 10^3/uL Mean Platelet Volume 9.2 9.0-12.2 fL Immature Granulocyte % (Auto) 0 % Neutrophils (%) (Auto) 67 42-75 % Lymphocytes (%) (Auto) 24 12-44 % Monocytes (%) (Auto) 7 0-12 % Eosinophils (%) (Auto) 2 0-10 % Basophils (%) (Auto) 0 0-10 % Neutrophils # (Auto) 8.2 H 1.8-7.8 10^3/uL Lymphocytes # (Auto) 2.9 1.0-4.0 10^3/uL Monocytes # (Auto) 0.8 0.0-1.0 10^3/uL Eosinophils # (Auto) 0.3 0.0-0.3 10^3/uL Basophils # (Auto) 0.0 0.0-0.1 10^3/uL Immature Granulocyte # (Auto) 0.0 0.0-0.1 10^3/uL Sodium Level 140 135-145 MMOL/L Potassium Level 4.0 3.6-5.0 MMOL/L Chloride Level 106 98-107 MMOL/L Carbon Dioxide Level 21 21-32 MMOL/L Anion Gap 13 5-14 MMOL/L Blood Urea Nitrogen 9 7-18 MG/DL Creatinine 0.75 0.60-1.30 MG/DL Estimat Glomerular Filtration Rate > 60 BUN/Creatinine Ratio 12 Glucose Level 99 70-105 MG/DL Lactic Acid Level 1.24 0.50-2.00 MMOL/L Calcium Level 9.3 8.5-10.1 MG/DL Corrected Calcium 9.2 8.5-10.1 MG/DL Total Bilirubin 0.6 0.1-1.0 MG/DL Aspartate Amino Transf (AST/SGOT) 39 H 5-34 U/L Alanine Aminotransferase (ALT/SGPT) 77 H 0-55 U/L Alkaline Phosphatase 79 40-136 U/L Total Protein 7.4 6.4-8.2 GM/DL Albumin 4.1 3.2-4.5 GM/DL My Orders Orders - TASNEEM YOUNG APRN Cbc With Automated Diff (05/23/20 12:17) Comprehensive Metabolic Panel (05/23/20 12:17) Blood Culture (05/23/20 12:17) Lactic Acid Analyzer (05/23/20 12:17) Ed Iv/Invasive Line Start (05/23/20 12:17) Ns Iv 1000 Ml (Sodium Chloride 0.9%) (05/23/20 12:30) Fentanyl Inj (Sublimaze Injection) (05/23/20 12:30) Ketorolac Injection (Toradol Injection) (05/23/20 12:30) Ondansetron Injection (Zofran Injectio (05/23/20 12:30) Clindamycin 900 Mg/50 Ml Ivpb (Cleocin P (05/23/20 12:30) Acute Abd Series (05/23/20 12:38) Medications Given in ED Current Medications Medications Dose Ordered Sig/Ericka Route Start Time Stop Time Status Last Admin Dose Admin Clindamycin Phosphate/Dextrose 50 ml @ 100 mls/hr ONCE ONCE IV 05/23/20 12:30 05/23/20 12:59 DC 05/23/20 13:08 100 MLS/HR Fentanyl Citrate 50 mcg ONCE ONCE IVP 05/23/20 12:30 05/23/20 12:31 DC 05/23/20 12:29 50 MCG Ketorolac Tromethamine 15 mg ONCE ONCE IVP 05/23/20 12:30 05/23/20 12:31 DC 05/23/20 12:35 15 MG Ondansetron HCl 8 mg ONCE ONCE IVP 05/23/20 12:30 05/23/20 12:31 DC 05/23/20 12:30 8 MG Departure Impression Primary Impression: Surgical wound infection Disposition: 01 HOME, SELF-CARE Condition: Stable Departure-Patient Inst. Decision time for Depature: 13:22 Referrals: [facility] (PCP/Family) Primary Care Physician Patient Instructions: Cellulitis (Skin Infection), Adult ED Add. Discharge Instructions: 1. Laxative as directed 2. Take antibiotic as directed 3. Follow up with Dr Martin. Call tomorro for an appointment. Scripts Clindamycin HCl (Clindamycin HCl) 300 Mg Capsule 300 MG PO TID, #21 CAP Prov: TASNEEM YOUNG APRN 05/23/20 Ondansetron (Ondansetron Odt) 8 Mg Tab.rapdis 8 MG PO Q6H PRN for NAUSEA-1ST LINE, #10 TAB Prov: TASNEEM YOUNG APRN 05/23/20 Images Torso/Trunk 1 - Cellulitis Copy Copies To 1: CIPRIANO MARTIN PETER J APRN May 23, 2020 11:49
[2020-05-23 12:29] LABS: BASOPHILS % (AUTO) 0 % (0-10); EOSINOPHILS # (AUTO) 0.3 10^3/uL (0.0-0.3); EOSINOPHILS % (AUTO) 2 % (0-10); HEMATOCRIT 54 % (35-52); HEMOGLOBIN 18.2 g/dL (11.5-16.0); LYMPHOCYTES # (AUTO) 2.9 10^3/uL (1.0-4.0); LYMPHOCYTES % (AUTO) 24 % (12-44); MEAN CORPUSCULAR HEMOGLOBIN 32 pg (25-34); MEAN CORPUSCULAR HGB CONC 34 g/dL (32-36); MEAN CORPUSCULAR VOLUME 94 fL (80-99); MEAN PLATELET VOLUME 9.2 fL (9.0-12.2); MONOCYTES # (AUTO) 0.8 10^3/uL (0.0-1.0); MONOCYTES % (AUTO) 7 % (0-12); NEUTROPHILS # (AUTO) 8.2 10^3/uL (1.8-7.8); NEUTROPHILS % (AUTO) 67 % (42-75); PLATELET COUNT 371 10^3/uL (130-400); WHITE BLOOD COUNT 12.2 10^3/uL (4.3-11.0)
[2020-05-23] MEDS ORDERED: NS IV 1000 ML 1,000 ML IV SCH (12:30)
[2020-05-23] MEDS ORDERED: KETOROLAC 30 MG/ML VIAL IVP ONE (12:30)
[2020-05-23] MEDS ORDERED: ONDANSETRON 4 MG/2 ML (SDV) Z0FRAN IVP ONE (12:30)
[2020-05-23] MEDS ORDERED: CLINDAMYCIN 900 MG/50 ML IVPB 50 ML IV ONE (12:30)
[2020-05-23] MEDS ORDERED: fentaNYL INJ 100 MCG/2 ML AMP IVP ONE (12:30)
[2020-05-23 12:40] LABS: ALANINE AMINOTRANSFERASE 77 U/L (0-55); ALBUMIN 4.1 GM/DL (3.2-4.5); ALKALINE PHOSPHATASE 79 U/L (40-136); BILIRUBIN,TOTAL 0.6 MG/DL (0.1-1.0); BUN/CREATININE RATIO 12; CALCIUM 9.3 MG/DL (8.5-10.1); CARBON DIOXIDE 21 MMOL/L (21-32); CHLORIDE 106 MMOL/L (98-107); CREATININE SERUM 0.75 MG/DL (0.60-1.30); GFR ESTIMATED > 60; GLUCOSE 99 MG/DL (70-105); SODIUM 140 MMOL/L (135-145); TOTAL PROTEIN 7.4 GM/DL (6.4-8.2)
--- NOTE | 2020-05-23 13:17 | Diagnostic Imaging Report ---
EXAMINATION: Abdominal series and chest radiograph HISTORY: Constipation COMPARISON: None available. FINDINGS: Loop recorder projects over the chest. Large volume of stool is present in the colon. No dilated bowel or free air. Gallbladder has been resected with surgical clips in the right upper quadrant. The lungs are clear. No edema. No pneumonia. No pleural effusion. No pneumothorax. Heart is normal in size. IMPRESSION: 1. Clear lungs. 2. Large volume of stool without dilated bowel. Dictated by: Dictated on workstation # [id number]
[2020-05-23] MEDS ORDERED: ONDA8TAB13 PO (13:26)
[2020-05-23] MEDS ORDERED: CLIN300C12 PO (13:26)
[2020-05-23 13:54] VITALS: BP 136/88
== END 2020-05-23 13:54 | disposition home or self-care (01) ==
LOC: EDUNIT# 11:37 → ER 11:39
DX: T81.49XA Infection following a procedure, other surgical site, initial encounter (principal); I10 Essential (primary) hypertension; E78.00 Pure hypercholesterolemia, unspecified; F41.9 Anxiety disorder, unspecified; G40.909 Epilepsy, unspecified, not intractable, without status epilepticus; Z86.73 Personal history of transient ischemic attack (TIA), and cerebral infarction without residual deficits; Z77.22 Contact with and (suspected) exposure to environmental tobacco smoke (acute) (chronic); Z95.810 Presence of automatic (implantable) cardiac defibrillator; Z88.0 Allergy status to penicillin; Z88.2 Allergy status to sulfonamides; Z88.5 Allergy status to narcotic agent
CPT/HCPCS: 36415; 74022; 80053; 83605; 85025; 87040

== ENCOUNTER 2020-10-29 05:29 | Outpatient (RCR) | payer MEDICAID ==
[~2020-10-29] VITALS: Ht 165 cm; Wt 76.4 kg
[~2020-10-29 05:29] MED LIST changes: +CLIN300C12 PO; +FLUT1DIS26 IH; +ONDA8TAB13 PO; +RT-ALBUINH IH
[2020-11-02] MEDS ORDERED: PANT40TA2 PO (10:52)
== END 2020-10-29 08:32 | disposition home or self-care (01) ==
LOC: PREOP 05:29
PROVIDERS: ATTEND Surgery
DX: Z01.812 Encounter for preprocedural laboratory examination (principal); Z12.11 Encounter for screening for malignant neoplasm of colon; K21.9 Gastro-esophageal reflux disease without esophagitis; Z20.822 Contact with and (suspected) exposure to COVID-19; Z86.010 Personal history of colon polyps; Z80.0 Family history of malignant neoplasm of digestive organs
CPT/HCPCS: 87635

== ENCOUNTER 2020-11-02 08:30 | Day surgery (SDC) | payer MEDICARE, MEDICAID ==
[~2020-11-02] VITALS: Ht 165 cm; Wt 76.4 kg
[2020-11-02] MEDS ORDERED: LACTATED RINGERS 1,000 ML IV STA (08:31)
--- OUTSIDE RECORDS SUMMARY | 2020-11-02 08:33 | XMS REPORT | Clinical Summary ---
Author Author [facility] Organization [facility] Address Unknown Phone Unavailable Care Team Providers Care Roof Plumber Name Role Phone None, Pcp PP Unavailable Allergies Comments Active Allergy Reactions Severity Noted Date Tolerates Mica. Oxycodone-Acetaminophen Headache Low 2019 Penicillins Anaphylaxis, High 10/02/2018 Hives Sulfa (Sulfonamide Shortness of High 10/02/2018 Antibiotics) breath, Rash Medications End Date Status Medication Sig Dispensed Refills Start Date Active traZODone (DESYREL) 100 Take 100 mg 0 mg tablet by mouth every night. Active clonazePAM (KlonoPIN) 0.5 Take 0.5 mg 0 mg tablet by mouth 1 (one) time each day. Active lisinopril-hydrochlorothi Take 1 tablet 0 azide by mouth 1 (PRINZIDE,ZESTORETIC) (one) time 20-12.5 mg per tablet each day. Active prazosin (MINIPRESS) 2 mg Take 8 mg by 0 capsule mouth every night. Active prazosin (MINIPRESS) 2 mg Take 2 mg by 0 capsule mouth 1 (one) time each day in the morning. Active TiZANidine (ZANAFLEX) 2 Take 2 mg by 0 mg capsule mouth 2 (two) times per day. Active celecoxib (CeleBREX) 200 Take 200 mg 0 mg capsule by mouth 1 (one) time each day. Active cariprazine (VRAYLAR) 3 Take 3 mg by 0 mg capsule mouth every night. Active aspirin 81 mg chewable Take 81 mg by 0 tablet mouth 1 (one) time each day. Active HYDROcodone-acetaminophen Take 1 tablet 0 (NORCO) 5-325 mg per by mouth 3 tablet (three) times per day if needed for moderate pain (4-6). Active atorvastatin (LIPITOR) 20 Take 1 tablet 30 tablet 0 mg tablet (20 mg total) 0 by mouth 1 (one) time each day. Active Problems Problem Noted Date Acute chest pain 03/28/2019 Chest pain 03/28/2019 Encounters Care Team Description Date Type Specialty Josef Ludwig PA-C Low back pain with sciatica, sciatica la terality unspecified, unspecified back pain laterality, unspecified chronicity (Primary Dx) 10/27/2020 Transcribe Orders from Last 3 Months Immunizations Name Administration Dates Next Due Influenza (IM) 03/28/2019 Preservative Free Social History Date Tobacco Use Types Packs/Day Years Used Current Every Day Smoker Cigarettes 0.5 Smokeless Tobacco: Never Used Tobacco Cessation: Ready to Quit: Yes Comments Alcohol Use Standard Drinks/Week Never 0 (1 standard drink = 0.6 o z pure alcohol) Alcohol Habits Answer Date Recorded How often do you have a drink containing alcohol? Never 03/28/2019 How many drinks containing alcohol do you have on No t asked a typical day when you are drinking? How often do you have six or more drinks on one Not asked occasion? Comment: Not asked Sex Assigned at Date Recorded Not on file Last Filed Vital Signs Reading Time Taken Comments Vital Sign 100/55 03/29/2019 11:40 AM TRIMMER [employer]AT Blood Pressure 69 03/29/2019 11:40 AM [employer]IMMER [employer] Pulse 36.3 C (97.3 F) 03/29/2019 11:40 AM TRIMMER MEAT Temperature 16 03/29/2019 11:40 AM TRIMMER MEAT Respiratory Rate 95% 03/29/2019 11:40 AM TRIMMER MEAT Oxygen Saturation - - Inhaled Oxygen Concentration 78.5 kg (173 lb) 03/28/2019 4:15 PM TRIMMER [employer] Weight 165.1 cm (5' 5") 03/28/2019 4:15 PM [employer]IMMER [employer] Height 28.79 03/28/2019 4:15 PM TRIMMER [employer]AT Body Mass Index Plan of Treatment Health Maintenance Due Date Last Done Comments CT Colonography 1968 Cologuard 1968 Colonoscopy 1968 Colorectal Cancer 1968 Screening Mammogram 1968 MMR Vaccines (1 of 1 - 1969 Standard series) Varicella Vaccines (1 of 1969 2 - 2-dose childhood series) Pneumococcal (1 of 2 - 1974 PPSV23) COVID-19 Vaccine (1) 1980 Depression Screening 1980 DTaP,Tdap,and Td Vaccines 04/28/1987 (1 - Tdap) Pap Smear 1989 FOBT/FIT 2013 Sigmoidoscopy 2013 Zoster Vaccines (1 of 2) 2018 Influenza Vaccine (#1) 2020 03/28/2019 Lipid Panel 03/28/2024 03/28/2019 HIB Vaccines Aged Out No longer eligible based on patient's age to complete this topic HPV Vaccines Aged Out No longer eligible based on patient's age to complete this topic Hepatitis A Vaccines Aged Out No longer eligibl e based on patient's age to complete this topic Hepatitis B Vaccines Aged Out No longer eligibl e based on patient's age to complete this topic IPV Vaccines Aged Out No longer eligible based on patient's age to complete this topic Meningococcal Vaccine Aged Out No longer eligib le based on patient's age to complete this topic Results Not on filefrom Last 3 Months Insurance Type Payer Benefit Subscriber ID Effective Phone Address Plan / Dates Group MEDICAID OUT OF [facility] [id number] 2019-P [address] MEDICAID [address] [place] [address] 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
--- OUTSIDE RECORDS SUMMARY | 2020-11-02 08:33 | XMS REPORT | Encounter Summary ---
Author Author [facility] Organization [facility] Address Unknown Phone Unavailable Care Team Providers Care Liquor Runner Name Role Phone None, Pcp PCP Unavailable Reason for Referral * Consultation (Routine) - Pending Review Diagnoses / Procedures Referred By Contact Referred To Conta ct Specialty Diagnoses Low back pain with sciatica, sciatica laterality unspecified, unspecified back pain laterality, unspecified chronicity Josef Ludwig PA-C [address] [place] [address] aHrpal Arnett, [address] [place] [address] Pain Medicine Referral ID Status Reason Start Date Expiration Visits Vi sits Date Requested Authorized [id number] Pending 10/27/2020 10/22/2021 1 1 Review Encounter Details Care Team Description Date Type Department Josef Ludwig PA-C [address] [place], [place] [id number] Low back pain with sciatica, sciatica la terality unspecified, unspecified back pain laterality, unspecified chronicity (Primary Dx) 10/27/2020 Transcribe [facility] Josette arevalo Orders Management [address] [place] [address] Social History Date Tobacco Use Types Packs/Day Years Used Current Every Day Smoker Cigarettes 0.5 Smokeless Tobacco: Never Used Comments Alcohol Use Standard Drinks/Week Never 0 [...] Assigned at Date Recorded Not on file documented as of this encounter Plan of Treatment Order Schedule Name Type Priority Associated Diag noses 1 Occurrences starting 10/27/2020 until 10/27/2021 Ambulatory referral to Outpatient Routine Low hamlet k pain with Pain Medicine Referral sciatica, sciatica laterality unspecified, unspecified back pain laterality, unspecified chronicity documented as of this encounter Visit Diagnoses Diagnosis Low back pain with sciatica, sciatica l aterality unspecified, unspecified back pain laterality, unspecified chronicity - Primary documented in this encounter Care Teams Start Date End Date Liquor Runner Relationship Specialty 03/28/19 None, Pcp PCP - General Family none Medicine documented as of this encounter
[2020-11-02] MEDS ORDERED: LACTATED RINGERS 1,000 ML IV ONE (08:37)
[2020-11-02] MEDS ORDERED: HURRICAINE EXT TUBE (BENZOCAINE) XX PRN (08:45)
--- NOTE | 2020-11-02 08:49 | Progress Note-Pre Operative ---
Pre-Operative Progress Note H&P Reviewed The H&P was reviewed, patient examined and no changes noted. Date Seen by Provider: Nov 02, 2020 Time Seen by Provider: 08:48 Date H&P Reviewed: Nov 02, 2020 Time H&P Reviewed: 08:48 Pre-Operative Diagnosis: n/v gerd, hx polyps, family hx colon cancer CIPRIANO PRESTON DO Nov 02, 2020 08:49
[2020-11-02 09:01] VITALS: BP 142/96
[2020-11-02] MEDS ORDERED: MIDAZOLAM 2 MG/2 ML (VERSED) VIAL IV ONE (09:30)
[2020-11-02] MEDS ORDERED: MIDAZOLAM 2 MG/2 ML (VERSED) VIAL ONE (09:59)
[2020-11-02] MEDS ORDERED: proPOfol 200 MG/20 ML (DIPRIVAN) VIAL IV ONE (10:00)
[2020-11-02 10:45] VITALS: BP 166/88
[2020-11-02 10:50] VITALS: BP 177/77
--- NOTE | 2020-11-02 10:51 | Progress Note-Post Operative ---
Post-Operative Progess Note Surgeon (s)/Sales Department Supervisor (s) Surgeon CIPRIANO PRESTON DO Sales Department Supervisor: na Pre-Operative Diagnosis n/v gerd, hx polyps, family hx colon cancer Post-Operative Diagnosis incomplete colonoscopy, pyloric polyp causing intermittent obstruction, small hiatal hernia, reflux esophagitis Procedure & Operative Findings Date of Procedure 11/02/20 Procedure Performed/Findings egd c snare polypectomy of pyloric polyp, bx of ge junction flex sig Anesthesia Type per multimedia developer Estimated Blood Loss Estimated blood loss (mL): scant Specimens/Packing Specimens Removed pyloric polyp, ge CIPRIANO PRESTON DO Nov 02, 2020 10:51
[2020-11-02] MEDS ORDERED: PANT40TA2 PO (10:52)
--- NOTE | 2020-11-02 10:53 | Discharge Inst-Simple/Standard ---
Discharge Inst-Standard Discharge Medications New, Converted or Re-Newed RX: Transmitted to Pharmacy Patient Instructions/Follow Up Plan of Care/Instructions/FU: clear liquid diet and nothing to eat after midnight, ct scan with rectal contrast tomorrow for further evalutation. Activity as Tolerated: Yes Discharge Diet: Liquid Diet (clear liquids and nothing to drink after midnight.) CIPRIANO PRESTON DO Nov 02, 2020 10:53
[2020-11-02 11:20] VITALS: BP 133/74
[2020-11-02 11:36] VITALS: BP 133/74
--- NOTE | 2020-11-02 14:27 | Anesthesia-General Post-Op ---
MAC Patient Condition Mental Status/LOC: Same as Preop Cardiovascular: Satisfactory Nausea/Vomiting: Absent Respiratory: Satisfactory Pain: Controlled Complications: Absent Post Op Complications Complications None Follow Up Care/Instructions Patient Instructions None needed. Anesthesiology Discharge Order Discharge Order Patient is doing well, no complaints, stable vital signs, no apparent adverse anesthesia problems. No complications reported per nursing. CHARLY FLANAGAN CRNA Nov 02, 2020 14:27
--- NOTE | 2020-11-02 14:44 | OPERATIVE REPORT ---
DATE OF SERVICE: 11/02/2020 PREOPERATIVE DIAGNOSES: Nausea, vomiting, gastroesophageal reflux disease, history of polyps, and family history of colon cancer. POSTOPERATIVE DIAGNOSES: Incomplete colonoscopy, polyp causing intermittent obstruction, small hiatal hernia, and reflux esophagitis. PROCEDURES PERFORMED: EGD with snare polypectomy of pyloric polyp, biopsy of GE junction and flexible sigmoidoscopy. SURGEON: Cipriano Martin DO. ANESTHESIA: Per MAIL CALLER. ESTIMATED BLOOD LOSS: Scant. COMPLICATIONS: None. INDICATIONS FOR PROCEDURE: The patient is a 50-year-old female with nausea, vomiting, GERD, history of polyps, and family history of colon cancer. She understands the risks and benefits of the procedure and wished to proceed with the procedure. Consent was signed in the chart. DESCRIPTION OF PROCEDURE: The patient was taken to the endoscopy suite and placed in a left lateral recumbent position. Timeout was performed. Scope was inserted in the mouth, down the esophagus, stomach and into the duodenum without difficulty. There were no polyps, masses or ulcerations within the duodenum. Scope was slowly retracted back in the pylorus, there was a larger polyp that was causing obstruction of the pyloric channel. A snare polypectomy was able to be performed. This polyp was suctioned and brought out through the mouth. The scope was then reinserted in mouth, down the esophagus and into the stomach. Scope was retroflexed noting a small hiatal hernia, no other pathology. Scope was then slowly retracted back. Biopsy of the GE junction was obtained. Some slight changes of reflux esophagitis were present. Scope was slowly retracted back until completely removed. Digital rectal exam was performed. Some scar tissue likely from previous fissure on the anterior aspect was present. No other polyps, masses or ulcerations. Scope was inserted in the rectum and advanced through the rectum into the sigmoid, a couple tight turns where the colon seemed to be fixed, were present. The scope was unable to be advanced any further. The scope was then retracted. A pediatric scope was then used and inserted and again got to the same portion of the colon and the scope could no longer be advanced. The patient was repositioned and attempted for pressure without any improvement for the scope to be advanced. Scope was then slowly retracted back. No polyps, masses or ulcerations visualized within the sigmoid colon and the rectum. Scope was attempted to be retroflexed, but the rectum was very narrow and unable to be retroflexed. So, multiple insertions and retractions were made noting no other pathology. RECOMMENDATIONS: The patient will follow up in the office in two weeks. We will get a CT scan with rectal contrast of the abdomen and pelvis to further evaluate the colon. Any issues before that be seen at that time. The patient will also be started on Protonix 40 mg daily. CC: [facility] - requested, unable to deliver. Job ID: [id number] DocumentID: [id number] Dictated Date: 11/02/2020 11:04:12 Automated Process Operator Date: 11/02/2020 14:43:39 Dictated By: CIPRIANO MARTIN DO
== END 2020-11-02 11:35 | disposition home or self-care (01) ==
LOC: ENDO 08:30
PROVIDERS: ATTEND Surgery
DX: Z12.11 Encounter for screening for malignant neoplasm of colon (principal); K31.7 Polyp of stomach and duodenum; K29.50 Unspecified chronic gastritis without bleeding; B96.81 Helicobacter pylori [H. pylori] as the cause of diseases classified elsewhere; K21.00 Gastro-esophageal reflux disease with esophagitis, without bleeding; K44.9 Diaphragmatic hernia without obstruction or gangrene; I10 Essential (primary) hypertension; I25.119 Atherosclerotic heart disease of native coronary artery with unspecified angina pectoris; F17.210 Nicotine dependence, cigarettes, uncomplicated; Z86.73 Personal history of transient ischemic attack (TIA), and cerebral infarction without residual deficits; Z79.891 Long term (current) use of opiate analgesic; Z79.899 Other long term (current) drug therapy; Z86.010 Personal history of colon polyps; Z80.0 Family history of malignant neoplasm of digestive organs
CPT/HCPCS: 88305; 88342

== ENCOUNTER → 2020-11-03 | Outpatient (CLI) | payer MEDICARE, MEDICAID ==
[~2020-11-03] MED LIST changes: +DIATRIZOATE MEGLUM/SODIUM 37% 120 ML (GASTROGRAFIN) PO ONE; +PANT40TA2 PO
--- NOTE | 2020-11-03 12:07 | Diagnostic Imaging Report ---
PROCEDURE: CT abdomen and pelvis without contrast. TECHNIQUE: Multiple contiguous axial images were obtained through the abdomen and pelvis without the use of intravenous contrast. Auto Exposure Controls were utilized during the CT exam to meet ALARA standards for radiation dose reduction. INDICATION: Incomplete colonoscopy. No prior studies are available for comparison. The lung bases are clear. The liver is unremarkable. Gallbladder surgically absent. No biliary duct dilatation is seen. The pancreas and spleen are unremarkable. There is some generalized low density adrenal enlargement particularly on the left, likely representing adenoma. No renal calculi are identified. There is no hydronephrosis. Aorta is calcified but nonaneurysmal. Contrast is seen throughout the rectum and colon. No discrete colonic mass is identified. There is no free fluid or fluid collection. Bladder is decompressed. Uterus appears to be surgically absent. IMPRESSION: Unremarkable noncontrast CT abdomen and pelvis study. No definite colonic mass is detected. No acute features detected. Dictated by: Dictated on workstation # [id number]
== END ==
LOC: RAD 11:13
PROVIDERS: ATTEND Surgery
DX: Z53.9 Procedure and treatment not carried out, unspecified reason (principal)
CPT/HCPCS: 74176

== ENCOUNTER → 2020-12-14 | Outpatient (CLI) | payer MEDICARE, MEDICAID ==
[~2020-12-14] MED LIST changes: +CLIN-144 PO; -CLIN300C12 PO; -DIATRIZOATE MEGLUM/SODIUM 37% 120 ML (GASTROGRAFIN) PO ONE
== END ==
LOC: LAB 15:04
PROVIDERS: ATTEND Surgery
DX: Z01.89 Encounter for other specified special examinations (principal)
CPT/HCPCS: 36415; 87338

== ENCOUNTER → 2022-03-14 | Day surgery (SDC) | payer MEDICAID, MEDICARE ==
[~2022-03-14] VITALS: Ht 165.1 cm; Wt 72.4 kg
[~2022-03-14] MED LIST changes: +ALBU8.5H6 IH; +ATOR40TA70 PO; +BENZ100C18 PO; +CYCL10TA25 PO; -DEXT1TAB3 PO; +DEXT1TAB5 PO; +FAMO20TA3 PO; +FLUT9.9S NS; +GABA-490 PO; +LANS15CA PO; +LIDOCAINE 1% INJ 20 ML VIAL INJ ONE; +LIDOCAINE 1% INJ 20 ML VIAL ONE; +OMEP20TA56 PO; +PANT40TA52 PO; +PARO-124 PO; -PARO-49 PO; -RT-ALBUINH IH; +RT-ALBUINH INH
[2022-03-14 09:16] VITALS: BP 168/83
[2022-03-14 09:33] LABS: BASOPHILS % (AUTO) 0 % (0-10); EOSINOPHILS # (AUTO) 0.1 10^3/uL (0.0-0.3); EOSINOPHILS % (AUTO) 1 % (0-10); HEMATOCRIT 47 % (35-52); HEMOGLOBIN 16.3 g/dL (11.5-16.0); LYMPHOCYTES # (AUTO) 2.3 10^3/uL (1.0-4.0); LYMPHOCYTES % (AUTO) 24 % (12-44); MEAN CORPUSCULAR HEMOGLOBIN 32 pg (25-34); MEAN CORPUSCULAR HGB CONC 35 g/dL (32-36); MEAN CORPUSCULAR VOLUME 92 fL (80-99); MONOCYTES # (AUTO) 0.8 10^3/uL (0.0-1.0); MONOCYTES % (AUTO) 9 % (0-12); NEUTROPHILS # (AUTO) 6.3 10^3/uL (1.8-7.8); NEUTROPHILS % (AUTO) 67 % (42-75); PLATELET COUNT 267 10^3/uL (130-400); WHITE BLOOD COUNT 9.5 10^3/uL (4.3-11.0)
[2022-03-14 10:13] LABS: BILIRUBIN,TOTAL 0.5 MG/DL (0.1-1.0); CALCIUM 9.3 MG/DL (8.5-10.1); CREATININE SERUM 0.7 MG/DL (0.60-1.30); POTASSIUM 3.7 MMOL/L (3.6-5.0); TOTAL PROTEIN 6.9 GM/DL (6.4-8.2)
--- NOTE | 2022-03-14 18:11 | OPERATIVE REPORT ---
DATE OF SERVICE: 03/14/2022 PREOPERATIVE DIAGNOSIS: Implantable loop recorder at end of life. POSTOPERATIVE DIAGNOSIS: Implantable loop recorder at end of life. PROCEDURE: Implantable loop recorder explantation. INDICATIONS: This is a 51-year-old lady whose implantable loop recorder is at the end of life and she wants it removed. Informed consent was obtained. DESCRIPTION OF PROCEDURE: [facility] The left prepectoral area was prepped and draped in the usual sterile fashion. A small incision was made at the medial end of the implanted device and sharp and blunt dissection was used to remove the device intact. The incision was closed with an absorbable stitch and Dermabond and Steri-Strips. She tolerated the procedure well. Job ID: [id number] DocumentID: [id number] Dictated Date: 03/14/2022 11:17:31 Statistical Geneticist Date: 03/14/2022 18:09:00 Dictated By: SHARIF BEATTY MD; BRADLEY; FACP; FACC;
== END | disposition home or self-care (01) ==
LOC: CATH 08:41
PROVIDERS: ATTEND Internal Medicine Cardiovascular Disease
DX: Z45.09 Encounter for adjustment and management of other cardiac device (principal); R55 Syncope and collapse; Z28.310 Unvaccinated for COVID-19; F17.210 Nicotine dependence, cigarettes, uncomplicated
CPT/HCPCS: 33286; 36415; 80053; 85025

== ENCOUNTER → 2022-04-25 | Outpatient (CLI) | payer MEDICARE, MEDICAID ==
[~2022-04-25] MED LIST changes: -LIDOCAINE 1% INJ 20 ML VIAL INJ ONE; -LIDOCAINE 1% INJ 20 ML VIAL ONE; +RT-ALBUTEROL SULF 2.5 MG/3 ML PRE-MIX VIAL INH ONE
== END ==
LOC: RT 08:00
PROVIDERS: ATTEND Nurse Practitioner Family
DX: R06.09 Other forms of dyspnea (principal); Z87.09 Personal history of other diseases of the respiratory system
CPT/HCPCS: 94060; 94726; 94729

== ENCOUNTER 2022-05-05 19:41 | Outpatient (CLI) | payer MEDICARE, MEDICAID ==
[~2022-05-05 19:41] MED LIST changes: -RT-ALBUTEROL SULF 2.5 MG/3 ML PRE-MIX VIAL INH ONE
== END 2022-05-06 06:15 | disposition home or self-care (01) ==
LOC: SLEEP 19:41
PROVIDERS: ATTEND Nurse Practitioner Family
DX: G47.9 Sleep disorder, unspecified (principal); G47.10 Hypersomnia, unspecified; R06.83 Snoring
CPT/HCPCS: 95810

== ENCOUNTER 2022-07-01 18:05 | Emergency (ER) | payer MEDICAID, MEDICARE ==
[~2022-07-01] VITALS: Ht 162 cm; Wt 54.0 kg
[2022-07-01] MEDS ORDERED: KETOROLAC 30 MG/ML VIAL IVP ONE (18:30)
[2022-07-01] MEDS ORDERED: ORPHENADRINE 60 MG/2 ML (NORFLEX) AMP (ED ONLY) IM ONE (18:30)
--- NOTE | 2022-07-01 18:34 | ED Trauma-Multisystem ---
General Chief Complaint: Trauma-Non Activation Stated Complaint: FALL/RIGHT SHOULDER/WRIST/NECK/BACK PAIN Nursing Triage Note: PT AMB TO RM 5 PT CO OF FALL FROM APPROX 3 FT, PT STATES FELL ON BACKWARDS, CO OF R SHOULDER PAIN 7/10, R SIDE NECK PAIN, R WRIST PAIN, LOWER BACK PAIN FROM FALL. PT STATES HAS TAKEN MOTRIN SINCE FALL. C-COLLAR APPLIED IN TRIAGE Source of Information: Patient Exam Limitations: No Limitations History of Present Illness Date Seen by Provider: July 01, 2022 Time Seen by Provider: 18:10 Initial Comments 52-year-old female presents to the ED after she fell off a ladder around 2:30 PM. She states she was approximately 4 feet up and became dizzy due to looking up. She states she landed on her right side. Complaining of neck pain, right shoulder pain, right wrist pain, and bilateral lower back pain. She reports pain on her spine. She thinks she hit her head. She has a history of degenerative disc, degenerative scoliosis, her right labrum in her shoulder is torn, herniated disks in her spine, PTSD, depression and anxiety. She has had several orthopedic surgeries. She denies chest pain, shortness of air, abdominal pain, nausea, vomiting. She reports 3 episodes of diarrhea in the last hour. Allergies and Home Medications Allergies Coded Allergies: Penicillins (Verified Allergy, Severe, ANAPHYLAXIS, 02/04/20) oxycodone (Verified Allergy, Intermediate, N/V, MIGRAINES, 02/04/20) Sulfa (Sulfonamide Antibiotics) (Verified Allergy, Mild, RASH, 02/04/20) Patient Home Medication List Home Medication List Reviewed: Yes Albuterol Sulfate (Ventolin Hfa) 1 Puff Puff, 2 PUFF INH Q4H PRN for SHORTNESS OF BREATH, (Reported) Entered as Reported by: MELANIE BRANNON on 03/14/22 1010 Atorvastatin Calcium (Atorvastatin Calcium) 40 Mg Tablet, 40 MG PO HS, (Reported) Entered as Reported by: MELANIE BRANNON on 03/14/22 1010 Benzonatate (Tessalon Perles) 100 Mg Capsule, 100 MG PO DAILY PRN for COUGH, (Reported) Entered as Reported by: MELANIE BRANNON on 03/14/22 1010 Cefdinir (Cefdinir) 300 Mg Capsule, 300 MG PO BID Prescribed by: Carolin Sierra on 07/01/222025 Cyclobenzaprine HCl (Cyclobenzaprine HCl) 10 Mg Tablet, 10 MG PO TID PRN for MUSCLE SPASMS, (Reported) Entered as Reported by: MELANIE BRANNON on 03/14/22 1010 Famotidine (Acid License Issuer (FAMOTIDINE)) 20 Mg Tablet, 20 MG PO DAILY PRN for HEARTBURN, (Reported) Entered as Reported by: MELANIE BRANNON on 03/14/22 1010 Fluticasone Propionate (Flonase Allergy Relief) 50 Mcg/Actuation [place].susp, 1 SPRAY NS DAILY PRN for CONGESTION, (Reported) Entered as Reported by: MELANIE BRANNON on 03/14/22 1010 Fluticasone/Salmeterol (Advair 250-50 Diskus) 250 Mcg-50 Mcg/Dose Blst.w.dev, 1 PUFF IH BID, (Reported) Entered as Reported by: MELANIE BRANNON on 03/14/22 1010 Gabapentin (Gabapentin) 400 Mg Capsule, 400 MG PO BID, (Reported) Entered as Reported by: MELANIE BRANNON on 03/14/22 1010 Hydrocodone/Acetaminophen (Hydrocodone-Acetamin 7.5-325) 7.5 Mg-325 Mg Tablet, 1 EACH PO TID, (Reported) Entered as Reported by: MELANIE BRANNON on 03/14/22 1010 Lansoprazole (Prevacid 24Hr) 15 Mg Capsule.dr, 15 MG PO DAILY, (Reported) Entered as Reported by: MELANIE BRANNON on 03/14/22 1010 Lisinopril/Hydrochlorothiazide (Lisinopril-Hctz 20-12.5 mg Tab) 20 Mg-12.5 Mg Tablet, 1 EACH PO DAILY, (Reported) Entered as Reported by: MELANIE BRANNON on 03/14/22 1010 Lorazepam (Ativan) 0.5 Mg Tablet, 0.5 MG PO TID PRN for ANXIETY, (Reported) Entered as Reported by: MELANIE BRANNON on 03/14/22 1010 Omeprazole (Omeprazole) 20 Mg Tablet.dr, 20 MG PO DAILY PRN for HEARTBURN, (Reported) Entered as Reported by: MELANIE BRANNON on 03/14/22 1010 Pantoprazole Sodium (Pantoprazole Sodium) 40 Mg Tablet.dr, 40 MG PO DAILY PRN for STOMACH UPSET, (Reported) Entered as Reported by: MELANIE BRANNON on 03/14/22 1010 Trazodone HCl (Trazodone HCl) 100 Mg Tablet, 100-200 MG PO HS, (Reported) Entered as Reported by: DARLYN ISABEL on 04/15/19 0926 Review of Systems Review of Systems Constitutional: see HPI Past Pmzfwnu-Lwcbsy-Sqdcqa Hx Patient Social History Tobacco Use?: Yes Tobacco type used: Cigarettes Smoking Status: Current Everyday Smoker Substance use?: No Alcohol Use?: No Pt feels they are or have been: No Immunizations Up To Date Tetanus Booster (TDap): Less than 5yrs Influenza Vaccine Up-to-Date: No; Not Current Seasonal Allergies Seasonal Allergies: Yes Past Medical History Surgeries: Yes (L TKR, NECK FUSION x2, LOOP RECORDER, R KNEE SCOPE, OSMAN CTR, WRIST) Hysterectomy, Joint Replacement, Orthopedic Respiratory: Yes Currently Using CPAP: No Currently Using BIPAP: No Cardiac: Yes Angina, High Cholesterol, Hypertension, Syncope Neurological: Yes Seizure Disorder, TIA Female Reproductive Disorders: Denies 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: Hysterectomy, Menopausal Sexually Transmitted Disease: No HIV/AIDS: No Genitourinary: No Gastrointestinal: No Musculoskeletal: Yes (CHRONIC NECK AND BACK PAIN ) Degenerate Disk Disease, Chronic Back Pain Endocrine: No HEENT: Yes (GLASSES) Loss of Vision: Denies Hearing Impairment: Denies Cancer: No Psychosocial: Yes Anxiety Integumentary: No Blood Disorders: No Adverse Reaction/Blood Tranf: No (N/A) Family Medical History Colon cancer No Pertinent Family Hx Physical Exam Vital Signs Vital Signs - First Documented 07/01/22 18:11 Temp 37.0 Pulse 70 Resp 18 B/P (MAP) 173/99 (123) Height, Weight, BMI Height: 5'5.00" Weight: 178lbs. 0.0oz. 80.884063su; 20.00 BMI Method:Stated General Appearance: No Apparent Distress, WD/WN Head: No Evidence of Injury; No Redding's Sign Ears, Nose, Throat: Hearing Grossly Normal, No Evidence of ENT Injury, Other (Denies ear pain, TMs normal, no pain over mastoid bones) Neck: Full Range of Motion, Tender Lateral, Tender Midline Cardiovascular: Regular Rate, Rhythm Respiratory: Lungs Clear, Normal Breath Sounds, No Accessory Muscle Use, No Respiratory Distress Gastrointestinal: Soft, Tenderness (Epigastric region) Back: Vertebral Tenderness (Cervical, thoracic, and lumbar spine), Other (Muscle tenderness bilateral lower back) Extremity: Other (Right shoulder and wrist tenderness, painful range of motion of right shoulder and right wrist) Neurologic/Psychiatric: Alert, Normal Mood/Affect Skin: Normal Color, Warm/Dry Progress/Results/Core Measures Results/Orders Lab Results Laboratory Tests Test 07/01/22 18:55 Range/Units White Blood Count 16.2 H 4.3-11.0 10^3/uL Red Blood Count 4.98 3.80-5.11 10^6/uL Hemoglobin 15.9 11.5-16.0 g/dL Hematocrit 47 35-52 % Mean Corpuscular Volume 94 80-99 fL Mean Corpuscular Hemoglobin 32 25-34 pg Mean Corpuscular Hemoglobin Concent 34 32-36 g/dL Red Cell Distribution Width 13.7 10.0-14.5 % Platelet Count 319 130-400 10^3/uL Mean Platelet Volume 9.1 9.0-12.2 fL Immature Granulocyte % (Auto) 0 % Neutrophils (%) (Auto) 74 42-75 % Lymphocytes (%) (Auto) 18 12-44 % Monocytes (%) (Auto) 7 0-12 % Eosinophils (%) (Auto) 1 0-10 % Basophils (%) (Auto) 0 0-10 % Neutrophils # (Auto) 12.0 H 1.8-7.8 10^3/uL Lymphocytes # (Auto) 2.8 1.0-4.0 10^3/uL Monocytes # (Auto) 1.1 H 0.0-1.0 10^3/uL Eosinophils # (Auto) 0.1 0.0-0.3 10^3/uL Basophils # (Auto) 0.1 0.0-0.1 10^3/uL Immature Granulocyte # (Auto) 0.1 0.0-0.1 10^3/uL Neutrophils % (Manual) 68 % Lymphocytes % (Manual) 17 % Monocytes % (Manual) 9 % Band Neutrophils 3 % Reactive Lymphocytes 3 % Sodium Level 141 135-145 MMOL/L Potassium Level 3.7 3.6-5.0 MMOL/L Chloride Level 110 H 98-107 MMOL/L Carbon Dioxide Level 19 L 21-32 MMOL/L Anion Gap 12 5-14 MMOL/L Blood Urea Nitrogen 14 7-18 MG/DL Creatinine 0.68 0.60-1.30 MG/DL Estimat Glomerular Filtration Rate 103 BUN/Creatinine Ratio 21 Glucose Level 80 70-105 MG/DL Calcium Level 9.1 8.5-10.1 MG/DL Corrected Calcium 9.0 8.5-10.1 MG/DL Magnesium Level 2.2 1.6-2.4 MG/DL Total Bilirubin 0.3 0.1-1.0 MG/DL Aspartate Amino Transf (AST/SGOT) 15 5-34 U/L Alanine Aminotransferase (ALT/SGPT) 15 0-55 U/L Alkaline Phosphatase 73 40-136 U/L Total Protein 6.9 6.4-8.2 GM/DL Albumin 4.1 3.2-4.5 GM/DL Lipase 63 8-78 U/L My Orders Orders - CAROLIN SIERRA LOT BOSS Cbc With Automated Diff (07/01/22 18:24) Magnesium (07/01/22 18:24) Ekg Tracing (07/01/22 18:24) Comprehensive Metabolic Panel (07/01/22 18:24) Ct Head/Cervical Spine Wo (07/01/22 18:24) Ct Thoracic/Lumbar Spine Wo (07/01/22 18:24) Shoulder, Right, 3 Views (07/01/22 18:24) Wrist, Right, 3 Views Or More (07/01/22 18:28) Ketorolac Injection (Toradol Injection) (07/01/22 18:30) Orphenadrine Inj (Ed Only) (Norflex Inje (07/01/22 18:45) Manual Differential (07/01/22 18:55) Lipase (07/01/22 18:55) Ceftriaxone Iv/Im (Rocephin Iv/Im) (07/01/22 20:30) Medications Given in ED Current Medications Medications Dose Ordered Sig/Ericka Route Start Time Stop Time Status Last Admin Dose Admin Ceftriaxone Sodium 1000 mg/ Sodium Chloride 50 ml @ 100 mls/hr ONCE ONCE IV 07/01/22 20:30 07/01/22 20:59 07/01/22 20:40 100 MLS/HR Ketorolac Tromethamine 30 mg ONCE ONCE IVP 07/01/22 18:30 07/01/22 18:31 DC 07/01/22 18:53 30 MG Orphenadrine Citrate 60 mg ONCE ONCE IV 07/01/22 18:45 07/01/22 18:46 DC 07/01/22 18:53 60 MG Vital Signs/I&O 07/01/22 18:11 Temp 37.0 Pulse 70 Resp 18 B/P (MAP) 173/99 (123) Blood Pressure Mean: 123 Progress Progress Note : Progress Note Patient seen and evaluated, resting comfortably in bed, no acute distress. Patient placed in c-collar upon arrival. Palpation of C-spine, thoracic spine, lumbar spine revealed tenderness. Patient also tender in bilateral lower back. Painful range of motion of the right shoulder and right wrist. No swelling noted. CT head, C-spine, thoracic, lumbar spine ordered. X-ray of right shoulder and right wrist ordered. CBC, CMP, magnesium, lipase, EKG ordered for dizziness and epigastric pain. Labs and imaging reviewed. CBC shows elevated WBC 16.2. CMP shows increased chloride 110, decreased CO2 19. Lipase normal 63. Shoulder x-ray shows no acute fracture or dislocation. No acute fracture or dislocation in the thoracic or lumbar spine. No acute fracture or dislocation in the wrist. CT head and neck shows no intracranial hemorrhage, no fracture or dislocation of the C- spine, and it is positive for bilateral mastoid effusions. Patient denies any ear pain or pain over mastoid bones. She states that the other day she did have some pain over her right mastoid bone. 2010 I called and spoke with Dr. Amse, ENT, regarding the bilateral mastoid effusions. He states that since this is an incidental finding and patient has no symptoms to go ahead and treat her with an antibiotic outpatient, and she can follow-up with her primary care provider, or if she has chronic ear issues she can follow up with ENT. Results discussed with patient. Patient denies chronic ear issues, she will follow-up with her primary care provider. Will give dose of Rocephin here and discharged with cefdinir. Discharge instructions and return precautions provided. Initial ECG Impression Date: July 01, 2022 Initial ECG Impression Time: 18:30 Initial ECG Rate: 69 Initial ECG Rhythm: Normal Sinus Initial ECG Intervals: Normal Initial ECG Impression: Normal Initial ECG Comparisson: Unchanged Diagnostic Imaging Diagonstic Imaging: CT Plain Films/CT/US/NM/MRI: c-spine, head Comments [facility] [place], [place] NAME: TOBIAS OG [facility] REC#: [id number] PT STATUS: REG ER : 1970 PHYSICIAN: CAROLIN SIERRA APRN ADMIT DATE: 07/01/22/ER Signed Date of Exam:07/01/22 CT HEAD/CERVICAL SPINE WO PROCEDURE: CT head and CT cervical spine without contrast. TECHNIQUE: Multiple contiguous axial images were obtained through the brain and cervical spine without the use of intravenous contrast. Sagittal and coronal reformations through the cervical spine were then performed. Auto Exposure Controls were utilized during the CT exam to meet ALARA standards for radiation dose reduction. INDICATION: Fall. Head and neck pain. COMPARISON: 07/22/2018. FINDINGS: CT HEAD: No large acute territorial ischemia, mass or hemorrhage. No midline shift or mass effect. The ventricles, cortical sulci, and basilar cisterns are patent and unremarkable. The calvarium is intact. The visualized paranasal sinuses are clear. Bilateral mastoid effusions are seen. CT CERVICAL SPINE: No acute fracture or dislocation is seen in the cervical spine. No focal osseous lesion. ACDF changes are visualized at C5 and C6. There is osseous fusion across these levels. Vertebral body heights are well-maintained. The craniocervical junction is well-maintained. Mild degenerative changes are seen in the cervical spine with disc osteophyte complexes and uncovertebral arthropathy. Soft tissues of the neck are unremarkable. IMPRESSION: 1. No hemorrhage or focal intra-axial mass. No CT evidence of large acute territorial ischemia. 2. No acute fracture or dislocation in the cervical spine. 3. Bilateral mastoid effusions. Dictated by: Dictated on workstation # [id number] Dict: 07/01/221853 Trans: 07/01/221903 [facility] [id number] Interpreted by: SALIMA LIRIANO DO Electronically signed by: SALIMA LIRIANO DO 07/01/221903 Diagonstic Imaging: Xray Plain Films/CT/US/NM/MRI: other (shoulder) Comments [facility] [place], [place] NAME: TOBIAS OG [facility] REC#: [id number] PT STATUS: REG ER : 1970 PHYSICIAN: CAROLIN SIERRA APRN ADMIT DATE: 07/01/22/ER Signed Date of Exam:07/01/22 SHOULDER, RIGHT, 3 VIEWS CLINICAL HISTORY: Fall. Right shoulder pain. COMPARISON: 11/06/2017. TECHNIQUE: 3 views of the right shoulder. FINDINGS: There is no acute fracture or dislocation of the right shoulder. Alignment is anatomic. The imaged joint spaces are preserved. No focal osseous lesion. The included right chest is clear. IMPRESSION: No acute fracture or dislocation in the right shoulder. Dictated by: Dictated on workstation # [id number] Dict: 07/01/22 1859 Trans: 07/01/221903 [facility] [id number] Interpreted by: SALIMA LIRIANO DO Electronically signed by: SALIMA LIRIANO DO 07/01/221903 Diagonstic Imaging: CT Plain Films/CT/US/NM/MRI: other (spine) Comments [facility] [place] [place] NAME: TOBIAS OG [facility] REC#: [id number] PT STATUS: REG ER : 1970 PHYSICIAN: CAROLIN SIERRA APRN ADMIT DATE: 07/01/22/ER Signed Date of Exam:07/01/22 CT THORACIC/LUMBAR SPINE WO PROCEDURE: CT thoracic and lumbar spine without contrast. TECHNIQUE: Multiple contiguous axial images were obtained through the thoracic and lumbar spine without the use of intravenous contrast. Sagittal and coronal reformations were then performed. All CT scans use one or more of the following dose optimizing techniques: automated exposure control, MA and/or KvP adjustment based on patient size and exam type or iterative reconstruction. INDICATION: Fall. Mid and lower back pain. COMPARISON: None. FINDINGS: No acute fracture or dislocation in the thoracic and lumbar spine. No suspicious focal osseous lesion. No evidence of acute spinal canal stenosis. No high density material seen within the spinal canal. There is fusion across the bilateral SI joints. The paraspinal soft tissues are unremarkable. The included lungs are clear. IMPRESSION: No acute fracture or dislocation in the thoracic or lumbar spine. Dictated by: Dictated on workstation # [id number] Dict: 07/01/22 185 Trans: 07/01/221903 [facility] [id number] Interpreted by: SALIMA LIRIANO DO Electronically signed by: SALIMA LIRIANO DO 07/01/221903 Diagonstic Imaging: Xray Plain Films/CT/US/NM/MRI: other (wrist) Comments [facility] [place] [place] NAME: TOBIAS OG [facility] REC#: [id number] PT STATUS: REG ER : 1970 PHYSICIAN: CAROLIN SIERRA APRN ADMIT DATE: 07/01/22/ER Signed Date of Exam:07/01/22 WRIST, RIGHT, 3 VIEWS OR MORE EXAMINATION: Right wrist 3 or more views. REASON FOR EXAM: Right wrist pain. COMPARISON: None available. FINDINGS: There is no acute fracture or dislocation of the right wrist. There is normal alignment of the wrist and carpel bones. The imaged joint spaces are preserved. No large joint effusion is seen in the right wrist. The surrounding soft tissues are unremarkable. IMPRESSION: No acute fracture or dislocation in the right wrist. Dictated by: Dictated on workstation # [id number] Dict: 07/01/221899 Trans: 07/01/221903 [facility] [id number] Interpreted by: SALIMA LIRIANO DO Electronically signed by: SALIMA LIRIANO DO 07/01/221903 Departure Impression Primary Impression: Fall Qualified Codes: W19.XXXA - Unspecified fall, initial encounter Additional Impressions: Mastoiditis Qualified Codes: H70.93 - Unspecified mastoiditis, bilateral Shoulder pain Qualified Codes: M25.511 - Pain in right shoulder Wrist pain Qualified Codes: M25.531 - Pain in right wrist Back pain Qualified Codes: M54.9 - Dorsalgia, unspecified Neck pain Disposition: 01 HOME, SELF-CARE Condition: Stable Departure-Patient Inst. Referrals: [facility] (PCP/Family) Primary Care Physician Patient Instructions: Mastoiditis Add. Discharge Instructions: Complete full course of antibiotic as directed. Follow-up with your primary care provider. Continue taking your hydrocodone and Flexeril as needed for pain. Return for severe pain, difficulty hearing, fever, or any other new, concerning, or worsening symptoms. All discharge instructions reviewed with patient and/or family. Voiced und erstanding. Scripts Cefdinir (Cefdinir) 300 Mg Capsule 300 MG PO BID for 10 Days, #20 CAP 0 Refills Prov: CAROLIN SIERRA APRN 07/01/22 CAROLIN SIERRA APRN July 01, 2022 18:34
[2022-07-01] MEDS ORDERED: ORPHENADRINE 60 MG/2 ML (NORFLEX) AMP (ED ONLY) IV ONE (18:45)
--- NOTE | 2022-07-01 18:58 | Diagnostic Imaging Report ---
PROCEDURE: CT head and CT cervical spine without contrast. TECHNIQUE: Multiple contiguous axial images were obtained through the brain and cervical spine without the use of intravenous contrast. Sagittal and coronal reformations through the cervical spine were then performed. Auto Exposure Controls were utilized during the CT exam to meet ALARA standards for radiation dose reduction. INDICATION: Fall. Head and neck pain. COMPARISON: 07/22/2018. FINDINGS: CT HEAD: No large acute territorial ischemia, mass or hemorrhage. No midline shift or mass effect. The ventricles, cortical sulci, and basilar cisterns are patent and unremarkable. The calvarium is intact. The visualized paranasal sinuses are clear. Bilateral mastoid effusions are seen. CT CERVICAL SPINE: No acute fracture or dislocation is seen in the cervical spine. No focal osseous lesion. ACDF changes are visualized at C5 and C6. There is osseous fusion across these levels. Vertebral body heights are well-maintained. The craniocervical junction is well-maintained. Mild degenerative changes are seen in the cervical spine with disc osteophyte complexes and uncovertebral arthropathy. Soft tissues of the neck are unremarkable. IMPRESSION: 1. No hemorrhage or focal intra-axial mass. No CT evidence of large acute territorial ischemia. 2. No acute fracture or dislocation in the cervical spine. 3. Bilateral mastoid effusions. Dictated by: Dictated on workstation # [id number]
--- NOTE | 2022-07-01 19:01 | Diagnostic Imaging Report ---
PROCEDURE: CT thoracic and lumbar spine without contrast. TECHNIQUE: Multiple contiguous axial images were obtained through the thoracic and lumbar spine without the use of intravenous contrast. Sagittal and coronal reformations were then performed. All CT scans use one or more of the following dose optimizing techniques: automated exposure control, MA and/or KvP adjustment based on patient size and exam type or iterative reconstruction. INDICATION: Fall. Mid and lower back pain. COMPARISON: None. FINDINGS: No acute fracture or dislocation in the thoracic and lumbar spine. No suspicious focal osseous lesion. No evidence of acute spinal canal stenosis. No high density material seen within the spinal canal. There is fusion across the bilateral SI joints. The paraspinal soft tissues are unremarkable. The included lungs are clear. IMPRESSION: No acute fracture or dislocation in the thoracic or lumbar spine. Dictated by: Dictated on workstation # [id number]
--- NOTE | 2022-07-01 19:02 | Diagnostic Imaging Report ---
CLINICAL HISTORY: Fall. Right shoulder pain. COMPARISON: 11/06/2017. TECHNIQUE: 3 views of the right shoulder. FINDINGS: There is no acute fracture or dislocation of the right shoulder. Alignment is anatomic. The imaged joint spaces are preserved. No focal osseous lesion. The included right chest is clear. IMPRESSION: No acute fracture or dislocation in the right shoulder. Dictated by: Dictated on workstation # [id number]
--- NOTE | 2022-07-01 19:03 | Diagnostic Imaging Report ---
EXAMINATION: Right wrist 3 or more views. REASON FOR EXAM: Right wrist pain. COMPARISON: None available. FINDINGS: There is no acute fracture or dislocation of the right wrist. There is normal alignment of the wrist and carpel bones. The imaged joint spaces are preserved. No large joint effusion is seen in the right wrist. The surrounding soft tissues are unremarkable. IMPRESSION: No acute fracture or dislocation in the right wrist. Dictated by: Dictated on workstation # [id number]
[2022-07-01 19:04] LABS: BASOPHILS # (AUTO) 0.1 10^3/uL (0.0-0.1); BASOPHILS % (AUTO) 0 % (0-10); EOSINOPHILS # (AUTO) 0.1 10^3/uL (0.0-0.3); EOSINOPHILS % (AUTO) 1 % (0-10); HEMATOCRIT 47 % (35-52); HEMOGLOBIN 15.9 g/dL (11.5-16.0); LYMPHOCYTES # (AUTO) 2.8 10^3/uL (1.0-4.0); LYMPHOCYTES % (AUTO) 18 % (12-44); MEAN CORPUSCULAR HEMOGLOBIN 32 pg (25-34); MEAN CORPUSCULAR HGB CONC 34 g/dL (32-36); MEAN CORPUSCULAR VOLUME 94 fL (80-99); MEAN PLATELET VOLUME 9.1 fL (9.0-12.2); MONOCYTES # (AUTO) 1.1 10^3/uL (0.0-1.0); MONOCYTES % (AUTO) 7 % (0-12); NEUTROPHILS % (AUTO) 74 % (42-75); PLATELET COUNT 319 10^3/uL (130-400); WHITE BLOOD COUNT 16.2 10^3/uL (4.3-11.0)
[2022-07-01 19:22] LABS: BAND NEUTROPHILS 3 %; LYMPHOCYTES % (MANUAL) 17 %; MONOCYTES % (MANUAL) 9 %; NEUTROPHILS % (MANUAL) 68 %; REACTIVE LYMPHOCYTES 3 %
[2022-07-01 19:46] LABS: ALBUMIN 4.1 GM/DL (3.2-4.5); POTASSIUM 3.7 MMOL/L (3.6-5.0)
[2022-07-01 19:47] LABS: CALCIUM 9.1 MG/DL (8.5-10.1)
[2022-07-01 19:48] LABS: TOTAL PROTEIN 6.9 GM/DL (6.4-8.2)
[2022-07-01 19:50] LABS: BILIRUBIN,TOTAL 0.3 MG/DL (0.1-1.0)
[2022-07-01 19:52] LABS: CREATININE SERUM 0.68 MG/DL (0.60-1.30)
[2022-07-01 19:55] LABS: MAGNESIUM 2.2 MG/DL (1.6-2.4)
[2022-07-01] MEDS ORDERED: CEFDINIR 300 MG (OMNICEF) CAP PO ONE (20:15)
[2022-07-01] MEDS ORDERED: CEFD300C3 PO (20:26)
[2022-07-01] MEDS ORDERED: cefTRIAXone IV/IM 1,000 MG in NS (IVPB) 50 ML IV ONE (20:30)
[2022-07-01 20:54] VITALS: BP 157/92
== END 2022-07-01 21:00 | disposition home or self-care (01) ==
LOC: EDUNIT# 18:05 → ER 18:07
DX: H70.93 Unspecified mastoiditis, bilateral (principal); M25.511 Pain in right shoulder; M25.531 Pain in right wrist; M54.2 Cervicalgia; M54.50 Low back pain, unspecified; M54.6 Pain in thoracic spine; R10.13 Epigastric pain; D72.829 Elevated white blood cell count, unspecified; E87.8 Other disorders of electrolyte and fluid balance, not elsewhere classified; R79.81 Abnormal blood-gas level; F17.210 Nicotine dependence, cigarettes, uncomplicated; Z88.0 Allergy status to penicillin; Z88.2 Allergy status to sulfonamides; Z88.5 Allergy status to narcotic agent; W11.XXXA Fall on and from ladder, initial encounter
CPT/HCPCS: 70450; 72125; 72128; 72131; 73030; 73110; 80053; 83690; 83735; 85007; 85027; 93005